=== PATIENT | female | born 1975 | race Caucasian/White ===

== ENCOUNTER 2017-01-31 00:15 | Outpatient (CLI) | payer MEDICAID ==
[2017-01-31 00:52] LABS: APPEARANCE,URINE SLIGHTLY-CLOUDY; BILIRUBIN,URINE NEGATIVE (NEGATIVE); GLUCOSE, URINE NEGATIVE (NEGATIVE); KETONES,URINE NEGATIVE (NEGATIVE); LEUKOCYTE ESTERASE,URINE SMALL (NEGATIVE); NITRITE,URINE NEGATIVE (NEGATIVE); PROTEIN,URINE NEGATIVE (NEGATIVE); URINE SPECIFIC GRAVITY 1.015; UROBILINOGEN,URINE NEGATIVE mg/dL (<2.0)
[2017-01-31 01:00] LABS: AMNISURE (ROM) NEGATIVE (NEGATIVE)
[2017-01-31 01:06] LABS: URINE BARBITURATES SCREEN NEGATIVE; URINE METHADONE SCREEN NEGATIVE; URINE OPIATES LOW NEGATIVE; URINE PHENCYCLIDINE SCREEN NEGATIVE
--- NOTE | 2017-01-31 04:46 | L&D Current Admission ---
Current Admit Datetime Report Generated by CPN: 01/31/2017 04:45 ADMISSION INFORMATION Chief Complaint: Contractions; Suspected Rupture of Membranes (01/31/2017 00:41:Marilu Jacobson RN)
--- NOTE | 2017-01-31 04:46 | L&D Flow Sheet ---
LD Flowsheet Datetime Report Generated by CPN: 01/31/2017 04:45 Datetime: 01/31/2017 02:52 Patient Care Comments: Discussed Dehydration with patient and spouse; both verbalized understanding (Marilu Field, RN) Datetime: 01/31/2017 02:48 Uterine Activity Monitor Mode: External; Palpation (Marilu Field, RN) Frequency (min): 1.5-3.5 (Marilu Field, RN) Quality: Mild (Marilu Field, RN) Resting Tone (Palpate): Relaxed (Marilu Field, RN) Contraction Comments: contraction frequency based on patient's aly on strip; unable to determine duration (Marilu Field, RN) Assessment A Monitor Mode: External US (Marilu Field, RN) FHR Baseline Rate : 125 (Marilu Field, RN) Variability: Moderate 6-25 bpm (Marilu Field, RN) Accelerations: 15X15 (Marilu Field, RN) Decelerations: None (Marilu Field, RN) Datetime: 01/31/2017 02:40 Vital Signs NBP Sys/Leida/Mean (mmHg): 117 (QS system process) : 69 (QS system process) : 89 (QS system process) Pulse: 51 (QS system process) LaborFlag: Antepartum (QS system process) Datetime: 01/31/2017 02:33 Monitor Interventions for UA: Reform Adjusted (Mirna Lattibeaudeir, RN) Contraction Comments: Pt given elvia button and advised to push it when she has a contraction. (Mirna Lattibeaudeir, RN) Datetime: 01/31/2017 02:30 Uterine Activity Monitor Mode: External; Palpation (Marilu Field, RN) Monitor Interventions for UA: Reform Adjusted (Marilu Field, RN) Quality: Mild (Marilu Field, RN) Resting Tone (Palpate): Relaxed (Marilu Field, RN) Contraction Comments: unable to determine contraction frequency (Marilu Field, RN) Assessment A Monitor Mode: External US (Marilu Field, RN) FHR Baseline Rate : 130 (Marilu Field, RN) Variability: Moderate 6-25 bpm (Marilu Field, RN) Accelerations: 15X15 (Marilu Field, RN) Decelerations: Late; Variable (Marilu Field, RN) Datetime: 01/31/2017 02:11 Vital Signs NBP Sys/Leida/Mean (mmHg): 131 (QS system process) : 62 (QS system process) : 88 (QS system process) Pulse: 51 (QS system process) LaborFlag: Antepartum (QS system process) Datetime: 01/31/2017 02:00 Uterine Activity Monitor Mode: External; Palpation (Marilu Field, RN) Frequency (min): 2.5-6 (Marilu Field, RN) Quality: Mild (Marilu Field, RN) Duration (sec): 50-100 (Marilu Field, RN) Resting Tone (Palpate): Relaxed (Marilu Field, RN) Assessment A Monitor Mode: External US ([facility], RN) FHR Baseline Rate : 125 ([facility], RN) Variability: Moderate 6-25 bpm ([facility], RN) Accelerations: 15X15 ([facility], RN) Decelerations: Late; Variable ([facility], RN) Datetime: 01/31/2017 01:51 Patient Care Patient Position/Activity: Left Extreme; Semi-Fowlers (Marilu Field, RN) Datetime: 01/31/2017 01:40 Vital Signs NBP Sys/Leida/Mean (mmHg): 124 (QS system process) : 71 (QS system process) : 93 (QS system process) Pulse: 57 (QS system process) LaborFlag: Antepartum (QS system process) Datetime: 01/31/2017 01:30 Uterine Activity Monitor Mode: External; Palpation ([facility], ) Frequency (min): 4.5-9 ([facility], ) Quality: Mild ([facility], RN) Duration (sec): 60-120 ([facility]) Resting Tone (Palpate): Relaxed ([facility], ) Assessment A Monitor Mode: External [facility] F[facility] Baseline Rate : 130 ([facility], ) Variability: Moderate 6-25 bpm [facility] Accelerations: 15X15 ([facility], RN) Decelerations: Late [facility] Patient Care Patient Position/Activity: Left Tilt; Semi-Fowlers (Marilu Field, RN) Datetime: 01/31/2017 01:10 Vital Signs NBP Sys/Leida/Mean (mmHg): 100 (QS system process) : 66 (QS system process) : 79 (QS system process) Pulse: 68 (QS system process) LaborFlag: Antepartum (QS system process) Datetime: 01/31/2017 01:07 Communication Communication: RN Reviewed Strip; Provider Orders Received; Call/Page Placed to Provider (Marilu Jacobson, RN) Communication Comments: Informed Dr. Reyes of patient's complaint, history, urine and amnisure results and vag exam; orders received to discharge home after being here for an hour. (Marilu Jacobson, RN) Datetime: 01/31/2017 01:00 Uterine Activity Monitor Mode: External; Palpation (Marilu Field, RN) Frequency (min): 4.5-7 (Marilu Field, RN) Quality: Mild (Marilu Field, RN) Duration (sec): 90-120 (Marilu Field, RN) Resting Tone (Palpate): Relaxed (Marilu Field, RN) Assessment A Monitor Mode: External US ([facility], RN) FHR Baseline Rate : 120 ([facility], RN) Variability: Moderate 6-25 bpm (Marilu Field, RN) Accelerations: 15X15 ([facility], RN) Decelerations: None (Marilu Field, RN) Datetime: 01/31/2017 00:47 Vaginal Exam Dilatation (cm): 1.0 (Marilu , ) Effacement (%): 20 ([facility], ) Station: -2 ([facility]) Exam by: BeanTANNA Jacobson ([facility]) Datetime: 01/31/2017 00:41 Frequency (min): Irregular (Marilu Jacobson, ) Pain Pain Scale: 2 ([facility], ) Pain Presence: Intermittent ([facility], ) Pain Type: Cramping; Contraction ([facility], RN) Pain Location: Abdomen; Back (Marilu Jacobson, RN) Pain Goal: 0 (Marilu Jacobson, RN) Pain Relief Measures: Comfort Measures (Marilu Jacobson, RN) Pain Coping: Talking Through Contractions; Breathing Through Contractions (Marilu Jacobson, RN) Vaginal Bleeding: Normal Show (Marilu Jacobson, RN) Maternal Assessment Level of Consciousness: Fully Conscious (Marilu Field, RN) DTR's/Clonus: DTRs 2+; No Clonus (Marilu Field, RN) Headache: Denies (Marilu Field, RN) Breath Sounds, Left: Clear and Equal (Marilu Field, RN) Breath Sounds, Right: Clear and Equal (Marilu Field, RN) Nausea/Vomiting: Denies (Marilu Field, RN) RUQ Epigastric Pain: Denies (Marilu Field, RN) Teaching Instructional Method: Verbal; Patient Instructed; Family/Support Person Instructed; Verbalized Understanding (Marilu Jacobson RN) Plan of Care: Plan of Care Discussed (Marilu Jacobson RN) Unit Routine: [place] to Room; Call Alvarez; Bed; Visiting Policy; Waiting Areas; Infant Security; Phone/Cell Phone Use; Unit Personnel; Handwashing; Monitoring; Safety/Fall Risk Prevention; Bathroom Privileges (Marilu Jacobson RN) LaborFlag: Antepartum (QS system process) Datetime: 01/31/2017 00:39 Vital Signs NBP Sys/Leida/Mean (mmHg): 104 (QS system process) : 67 (QS system process) : 81 (QS system process) Pulse: 71 (QS system process) LaborFlag: Antepartum (QS system process) Datetime: 01/31/2017 00:37 Patient Care Patient Position/Activity: Right Tilt; Couch (Jennifer Field, RN)
--- NOTE | 2017-01-31 04:46 | L&D Admission Assessment ---
LD ADM ASMT Datetime Report Generated by CPN: 01/31/2017 04:45 PATIENT ASSESSMENT Assessment Type: Triage (01/31/2017 00:41:Marilu Field, RN) WEIGHT Weight (lb): 251 (01/31/2017 01:02:QS system process) Weight (kg): 114.1 (01/31/2017 01:02:QS system process) BMI: 39.3 (01/31/2017 01:02:QS system process) PAIN Pain Scale: 2 (01/31/2017 00:41:Marilu Field, RN) Pain Presence: Intermittent (01/31/2017 00:41:Marilu Field, RN) Pain Type: Cramping; Contraction (01/31/2017 00:41:Marilu Field, RN) Pain Location: Abdomen; Back (01/31/2017 00:41:Marilu Field, RN) Pain Goal: 0 (01/31/2017 00:41:Marilu Field, RN) Pain Related to Contraction: Yes (01/31/2017 00:41:Marilu Field, RN) CONTRACTIONS Frequency (min): 1.5-3.5 (01/31/2017 02:48:Marilu Field, RN) Frequency (min): 2.5-6 (01/31/2017 02:00:Marilu Field, RN) Frequency (min): 4.5-9 (01/31/2017 01:30:Marilu Field, RN) Frequency (min): 4.5-7 (01/31/2017 01:00:Marilu Field, RN) Frequency (min): Irregular (01/31/2017 00:41:Marilu Jacobson RN) Duration (sec): 50-100 (01/31/2017 02:00:Marilu Jacobson RN) Duration (sec): 60-120 (01/31/2017 01:30:Marilu Jacobson RN) Duration (sec): 90-120 (01/31/2017 01:00:Marilu Jacobson RN) Quality: Mild (01/31/2017 02:48:Marilu Jacobson RN) Quality: Mild (01/31/2017 02:30:Marilu Jacobson RN) Quality: Mild (01/31/2017 02:00:Marilu Jacobson RN) Quality: Mild (01/31/2017 01:30:Marilu Jacobson RN) Quality: Mild (01/31/2017 01:00:Marilu Jacobson RN) Resting Tone Anna: Relaxed (01/31/2017 02:48:Marilu aJcobson RN) Resting Tone Anna: Relaxed (01/31/2017 02:30:Marilu Jacobson RN) Resting Tone Anna: Relaxed (01/31/2017 02:00:Marilu Jacobson RN) Resting Tone Anna: Relaxed (01/31/2017 01:30:Marilu Jacobson RN) Resting Tone Anna: Relaxed (01/31/2017 01:00:Marilu Jacobson RN) Contraction Comments: contraction frequency based on patient's aly on strip; unable to determine duration (01/31/2017 02:48:Marilu Jacobson RN) Contraction Comments: Pt given elvia button and advised to push it when she has a contraction. (01/31/2017 02:33:Mirna Whitt RN) Contraction Comments: unable to determine contraction frequency (01/31/2017 02:30:Marilu Jacobson RN) VAGINAL EXAM Dilatation (cm): 1.0 (01/31/2017 00:47:Marilu Jacobson, RN) Effacement (%): 20 (01/31/2017 00:47:Marilu Jacobson, RN) Station: -2 (01/31/2017 00:47:Marilu Jacobson, RN) NEURO Level of Consciousness: Fully Conscious (01/31/2017 00:41:Marilu TANNA Jacobson) DTR's/Clonus: DTRs 2+; No Clonus (01/31/2017 00:41:Marilu Jacobson RN) Headache: Denies [facility]31[facility]2017 [facility] Dizziness: No (01/31/2017 00:41:Marilu Field RN) Blurred Vision: No ([facility]/31/2017 00:41[facility]) Extremity Numbness/Tingling : None (01/31/2017 00:41:[facility] RN) Extremity Movement: Full Range of Motion (01/31/2017 00:41:[facility], RN) CARDIOVASCULAR Heart Rhythm: Regular (01/31/2017 00:41:Marilu Jacobson RN) Nailbeds: [place] (01/31/2017 00:41:Marilu Jacobson RN) Capillary Refill: Less than 3 Seconds (01/31/2017 00:41:Marilu Jacobson RN) Lower Extremities Edema: Bilateral Lower Extremities (01/31/2017 00:41:Marilu Jacobson RN) Lower Extremities Edema Degree: Pitting (01/31/2017 00:41:Marilu Jacobson RN) Upper Extremities Edema: None (01/31/2017 00:41:Marilu Jacobson RN) Upper Extremities Edema Degree: None (01/31/2017 00:41:Marilu Jacobson RN) Facial Edema: None (01/31/2017 00:41:Marilu Jacobson RN) Matilde's Sign Left Leg: Negative (01/31/2017 00:41:Marilu Jacobson RN) Matilde's Sign Right Leg: Negative (01/31/2017 00:41:Marilu Jacobson RN) DVT RISK ASSESSMENT DVT Risk Age: Age less than 41 years (01/31/2017 00:41:Marilu Jacobson RN) DVT Risk BMI: BMI 31 to 40 (01/31/2017 00:41:Marilu Jacobson RN) DVT Risk Surgery: History of Prior Major Surgery (01/31/2017 00:41:Marilu Jacobson RN) DVT Risk Other: Women Only- or (<1 month) (01/31/2017 00:41:Marilu Jacobson RN) DVT Risk Total: 3 (01/31/2017 00:41:QS system process) DVT Risk Text: High Risk (20-40%)- Consider stockings, compresssion device, pharmacological therapy per hospital policy (01/31/2017 00:41:QS system process) RESPIRATORY Respiratory Effort: Unlabored; Regular Rhythm; Equal Expansion (01/31/2017 00:41:Marilu Jacobson RN) Breath Sounds, Left: Clear and Equal (01/31/2017 00:41:Marilu Jacobson RN) Breath Sounds, Right: Clear and Equal (01/31/2017 00:41:Marilu Jacobson RN) Cough Productivity: Nonproductive (01/31/2017 00:41:Marilu Jacobson RN) GASTROINTESTINAL Nausea/Vomiting: Denies (01/31/2017 00:41:Marilu Jacobson RN) Bowel Sounds: Normoactive (01/31/2017 00:41:Marilu Jacobson RN) RUQ Epigastric Pain: Denies (01/31/2017 00:41:Marilu Jacobson RN) Bowel Patterns: Loose Stool (01/31/2017 00:41:Marilu Jacobson RN) Hemorrhoids: None (01/31/2017 00:41:Marilu Jacobson RN) Diet Type: Regular diet (01/31/2017 00:41:Marilu Jacobson RN) Last Meal: 01/30/2017 18:00 (01/31/2017 00:41:Marilu Jacobson RN) GENITOURINARY Bladder: Nondistended (01/31/2017 00:41:Marilu Jacobson RN) Frequency of Urination: No (01/31/2017 00:41:Marilu Jacobson RN) Urination Burning: No (01/31/2017 00:41:Marilu Jacobson RN) CVA Tenderness: No (01/31/2017 00:41:Marilu Jacobson RN) INTEGUMENTARY Skin Color: Normal for Race (01/31/2017 00:41:Marilu Jacobson RN) Skin Temperature: Warm (01/31/2017 00:41:Marilu Jacobson RN) Skin Moisture: Dry (01/31/2017 00:41:Marilu Jacobson RN) INOCENTE SKIN ASSESSMENT Inocente Scale Sensory Perception: No Impairment- Responds to verbal commands. Has no sensory deficit which would limit ability to feel or voice pain or discomfort (01/31/2017 00:41:Marilu Jacobson RN) Inocente Scale Moisture: Rarely Moist- Skin is usually dry. Linen only requires changing at routine intervals (01/31/2017 00:41:Marilu Jacobson RN) Inocente Scale Activity: Walks Frequently- Walks outside the room at least twice a day and inside room at least every 2 hours during the day. (01/31/2017 00:41:Marilu Jacobson RN) Inocente Scale Mobility: No Limitations- Makes major and frequent changes in position without assistance (01/31/2017 00:41:Marilu Jacobson RN) Inocente Scale Nutrition: Excellent- Eats most of every meal. Never refuses a meal. Usually eats a total of 4 or more servings of meat and dairy products. Occasionally eats between meals. Does not require supplementation (01/31/2017 00:41:Marilu Jacobson RN) Inocente Scale Friction and Shear: No Apparent Problem- Moves in bed and in chair independently and has sufficient muscle strength to lift up completely during move. Maintains good position in bed or chair at all times (01/31/2017 00:41:Marilu Jacobson RN) Inocente Scale Total: 23 (01/31/2017 00:41:QS system process) Inocente Scale Risk: No Risk of Pressure Ulcer Noted at this Time (01/31/2017 00:41:QS system process) SUPPORT Family Support: Significant Other supportive, at bedside frequently (01/31/2017 00:41:Marilu Jacobson, TANNA) Emotional State: Anxious (01/31/2017 00:41:Marilu Jacobson, TANNA) SAFETY Call [place] Within Reach: Yes (01/31/2017 00:41:Marilu Jacobson RN) Side Rails Up: Yes (01/31/2017 00:41:Marilu Jacobson RN) Bed Wheels Locked: Yes (01/31/2017 00:41:Marilu Jacobson RN) Arm Bands Present: Yes (01/31/2017 00:41:Marilu Jacobson RN) Isolation: [place] (01/31/2017 00:41:Marilu Jacobson RN) FALL SCREEN Fall Risk History of Falling: (0) No (01/31/2017 00:41:Marilu Jacobson RN) Fall Risk Secondary Diagnosis: (0) No (01/31/2017 00:41:Marilu Jacobson RN) Fall Risk Ambulatory Aid: (0) None/Bedrest/Wheelchair/Nurse Assist (01/31/2017 00:41:Marilu Jacobson RN) Fall Risk IV Therapy: (0) No (01/31/2017 00:41:Marilu Jacobson RN) Fall Risk Gait: (0) Normal/Bedrest/Immobile (01/31/2017 00:41:Marilu Jacobson RN) Fall Risk Mental Status: (0) Oriented to Own Ability (01/31/2017 00:41:Marilu Jacobson RN) Fall Risk Score: 0 (01/31/2017 00:41:QS system process) Fall Risk Score Definition: No Risk: No action required (01/31/2017 00:41:QS system process) RECENT TRAVEL/INFECTIOUS DISEASE Recent Exp Communicable Disease: No (01/31/2017 00:41:Marilu Jacobson RN) Cough or Fever: Yes (01/31/2017 00:41:Marilu Jacobson RN) Foreign Travel Past 10 Days: No (01/31/2017 00:41:Marilu Jacobson RN) Open Wounds or Sores: No (01/31/2017 00:41:Marilu Jacobson RN) Prior Antibiotic Resistance Tx: No (01/31/2017 00:41:Marilu Jacobson RN) Cultures Obtained: Not Applicable (01/31/2017 00:41:Marilu Jacobson RN) Isolation Initiated: No (01/31/2017 00:41:Marilu Jacobson RN) Pt/Family Education: Handwashing Hygiene (01/31/2017 00:41:Marilu Jacobson RN) BABY A FHR Baseline Rate (bpm) Baby A: 125 (01/31/2017 02:48:Marilu Jacobson RN) FHR Baseline Rate (bpm) Baby A: 130 (01/31/2017 02:30:Marilu Jacobson RN) FHR Baseline Rate (bpm) Baby A: 125 (01/31/2017 02:00:Marilu Jacobson RN) FHR Baseline Rate (bpm) Baby A: 130 (01/31/2017 01:30:Marilu Jacobson RN) FHR Baseline Rate (bpm) Baby A: 120 (01/31/2017 01:00:Marilu Jacobson RN) Variability Baby A: Moderate 6-25 bpm (01/31/2017 02:48:Marilu Jacobson RN) Variability Baby A: Moderate 6-25 bpm (01/31/2017 02:30:Marilu Jacobson RN) Variability Baby A: Moderate 6-25 bpm (01/31/2017 02:00:Marilu Jacobson RN) Variability Baby A: Moderate 6-25 bpm (01/31/2017 01:30:Marilu Jacobson RN) Variability Baby A: Moderate 6-25 bpm (01/31/2017 01:00:Marilu Jacobson RN) Accelerations Baby A: 15X15 (01/31/2017 02:48:Marilu Jacobson RN) Accelerations Baby A: 15X15 (01/31/2017 02:30:Marilu Jacobson RN) Accelerations Baby A: 15X15 (01/31/2017 02:00:Marilu Jacobson RN) Accelerations Baby A: 15X15 (01/31/2017 01:30:Marilu Jacobson RN) Accelerations Baby A: 15X15 (01/31/2017 01:00:Marilu Jacobson RN) Decelerations Baby A: None (01/31/2017 02:48:Marilu Jacobson RN) Decelerations Baby A: Late; Variable (01/31/2017 02:30:Marilu Jacobson RN) Decelerations Baby A: Late; Variable (01/31/2017 02:00:Marilu Jacobson RN) Decelerations Baby A: Late (01/31/2017 01:30:Marilu Jacobson RN) Decelerations Baby A: None (01/31/2017 01:00:Marilu Jacobson RN)
--- NOTE | 2017-01-31 04:46 | Antepartum Discharge Summary ---
Antepartum DC Datetime Report Generated by CPN: 01/31/2017 04:45 DIET/ACTIVITY/RESTRICTIONS Diet: Regular (01/31/2017 03:07:Marilu , RN) Activity: Normal Activity (01/31/2017 03:07:Marilu , RN) TEACHING/INSTRUCTIONS/REFERRALS Instructions Given To: Patient and spouse (01/31/2017 03:07:Marilu , RN) Instructions Understood: Patient Verbalized Understanding; Support Person Verbalized Understanding (01/31/2017 03:07:Marilu Jacobson RN) Referrals: None (01/31/2017 03:07:Marilu Jacobson RN) Educational Materials- Other: Dehydration (01/31/2017 03:07:Marilu Jacobson RN) DISCHARGE INFORMATION Discharged AMA: No (01/31/2017 03:07:Marilu Jacobson RN) Discharge Date/Time: 01/31/2017 03:04 (01/31/2017 03:07:Marilu Jacobson RN) Discharged To: Home (01/31/2017 03:07:Marilu Jacobson RN) Discharge Provider Name: Dr. Reyes (01/31/2017 03:07:Marilu Jacobson RN) Accompanied By: Spouse (01/31/2017 03:07:Marilu Jacobson RN) Discharge Method: Ambulatory (01/31/2017 03:07:Marilu Jacobson RN) Condition: Stable (01/31/2017 03:07:Marilu Jacobson RN) FOLLOW UP INFORMATION Follow Up With: [facility] (01/31/2017 03:07:Marilu Jacobson RN) Follow Up On: As Scheduled (01/31/2017 03:07:Marilu Jacobson RN) Follow Up Phone Number: [facility] - (01/31/2017 03:07:Marilu Jacobson RN) Comments: Discussed dehydration and signs and symptoms of when to return to office or hospital with patient and spouse. Both, patient and spouse, verbalized understanding. Patient discharged home due to false labor via ambulation in stable condition. (01/31/2017 03:07:Marilu Jacobson RN) GENERAL INSTR-CALL PROVIDER IF: Contractions: Contractions or cramps become more frequent than 8 in one hour or 4 in 20 minutes; Regular painful contractions every 5 minutes or less for one hour. Time your contractions from the beginning of one to the beginning of the next (01/31/2017 03:07:Marilu Jacobson RN) Pressure: Pressure in your vagina or lower abdomen that may feel like the baby is pushing down (01/31/2017 03:07:Marilu Jacobson RN) Period Like Cramps: Period-like cramps or low dull backache that may come and go (01/31/2017 03:07:Marilu Jacobson RN) Cramps/Diarrhea: Abdominal cramps that may be accompanied by diarrhea (01/31/2017 03:07:Marilu Jacobson RN) Gush of Fluid/Blood: Gush of fluid or blood from your vagina (it is normal to have spotting after vaginal exam or intercourse) (01/31/2017 03:07:Marilu Jacobson RN) Vaginal Discharge: Change in the type or amount of vaginal discharge (01/31/2017 03:07:Marilu Jacobson RN) Decreased Movement: Your baby is not moving as much as usual- 4 movements in 1 hour after drinking and resting on side (01/31/2017 03:07:Marilu Jacobson RN) Temperature: Temperature greater than 100.0(F) orally (01/31/2017 03:07:Marilu Jacobson RN) Hypertension Signs/Symptoms: Severe headache which is not relieved 30 minutes after taking Tylenol(Acetaminophen); Blurry vision or spots before your eyes; Severe heartburn or pain on the upper right side of your abdomen that is not relieved by an antacid; Increased swelling in your face, hands or feet (01/31/2017 03:07:Marilu Jacobson RN) Urinary Output: Decreased urinary output or dark colored urine (01/31/2017 03:07:Marilu Jacobson RN)
--- NOTE | 2017-01-31 04:46 | L&D General Admission ---
General Admit Datetime Report Generated by CPN: 01/31/2017 04:45 CARE Height (in): 67 (01/31/2017 01:02:QS system process) DEMOGRAPHICS Home (01/31/2017 00:15:QS system process) Next of Kin (01/31/2017 00:15:QS system process)
--- NOTE | 2017-01-31 04:46 | L&D Discharge Summary ---
OB Discharge Summary Datetime Report Generated by CPN: 01/31/2017 04:45 DISCHARGE DIAGNOSIS Diagnosis/Symptoms: False Labor Diagnoses/Symptoms Other: Left lower quadrant pain/left back pain that has resolved. Treatment/Procedures Other: FHTs appropriate for GA; toco monitoring Gestation: 38.5 Number of Babies in Womb: 1 Parity: 4 DIET/ACTIVITY/RESTRICTIONS Diet: Regular Activity: Normal Activity TEACHING/INSTRUCTIONS/REFERRALS Instructions Given To: Patient and spouse Instructions Understood: Patient Verbalized Understanding; Support Person Verbalized Understanding Referrals: None Educational Materials- Other: Dehydration DISCHARGE INFORMATION Discharged AMA: No Discharge Date/Time: 01/31/2017 03:04 Discharged To: Home Discharge Provider Name: DrShasta Reyes Accompanied By: Spouse Discharge Method: Ambulatory Condition: Stable FOLLOW UP INFORMATION Follow Up With: [facility] Follow Up On: As Scheduled Follow Up Phone Number: [facility] - Comments: Discussed dehydration and signs and symptoms of when to return to office or hospital with patient and spouse. Both, patient and spouse, verbalized understanding. Patient discharged home due to false labor via ambulation in stable condition. GENERAL INSTR-CALL PROVIDER IF: Contractions: Contractions or cramps become more frequent than 8 in one hour or 4 in 20 minutes; Regular painful contractions every 5 minutes or less for one hour. Time your contractions from the beginning of one to the beginning of the next Pressure: Pressure in your vagina or lower abdomen that may feel like the baby is pushing down Period Like Cramps: Period-like cramps or low dull backache that may come and go Cramps/Diarrhea: Abdominal cramps that may be accompanied by diarrhea Gush of Fluid/Blood: Gush of fluid or blood from your vagina (it is normal to have spotting after vaginal exam or intercourse) Vaginal Discharge: Change in the type or amount of vaginal discharge Decreased Movement: Your baby is not moving as much as usual- 4 movements in 1 hour after drinking and resting on side Temperature: Temperature greater than 100.0(F) orally
== END 2017-01-31 03:04 | disposition home or self-care (01) ==
LOC: LC 00:15
PROVIDERS: ATTEND Obstetrics & Gynecology
PROC: 4A1HXCZ Monitoring of Products of Conception, Cardiac Rate, External Approach (ICD-10-PCS; principal; 2017-01-31)
DX: O47.1 False labor at or after 37 completed weeks of gestation (principal); O09.523 Supervision of elderly multigravida, third trimester; Z3A.38 38 weeks gestation of pregnancy
CPT/HCPCS: 59025; 80307; 81005; 84112

== ENCOUNTER 2017-02-02 08:25 | Inpatient (IN) | payer MEDICAID ==
[2017-02-02] MEDS ORDERED: RINGERS SOLUTION,LACTATED 300 ML IV ONE (08:41)
[2017-02-02] MEDS ORDERED: RINGERS SOLUTION,LACTATED 1,000 ML IV PRN (08:41)
[2017-02-02] MEDS ORDERED: OXYTOCIN/NORMAL SALINE 1,000 ML IV PRN ×3 (08:41→16:35)
--- NOTE | 2017-02-02 08:46 | Non Stress Test Report ---
Non Stress Test Datetime Report Generated by CPN: 02/02/2017 08:46 DEMOGRAPHIC EGA NST: 38.6 INDICATION Indication for Study: Ordered by Provider Indication for Study (NST) Other: LC MONITORING Monitor Explained: Monitor Explained; Test Explained; Patient Verbalized Understanding Time on Monitor: 01/31/2017 00:37 Time off Monitor: 01/31/2017 02:48 NST Duration: 131 NST INTERVENTIONS NST Interventions: PO Hydration; Reposition Patient Physician Notified NST: Dr. Reyes BABY A: [id number] BABY A Movement : Present Contraction Frequency : 2.5-9 FHR Baseline : 125 Accelerations : 15X15 Decelerations : Late; Variable Variability : Moderate 6-25bpm NST Review: Meets Criteria for Reactive NST NST Review and Verified By : TANNA Walton Results: Reactive NST COMMENTS NST Comments: Pt was repositioned and reactive strip was obtained prior to patient's discharge from unit. NST REPORT Report Trigger: Send Report
[2017-02-02 09:12] LABS: APPEARANCE,URINE SLIGHTLY-CLOUDY; BILIRUBIN,URINE NEGATIVE (NEGATIVE); GLUCOSE, URINE NEGATIVE (NEGATIVE); KETONES,URINE NEGATIVE (NEGATIVE); LEUKOCYTE ESTERASE,URINE MODERATE (NEGATIVE); NITRITE,URINE NEGATIVE (NEGATIVE); PROTEIN,URINE NEGATIVE (NEGATIVE); URINE SPECIFIC GRAVITY 1.011; UROBILINOGEN,URINE NEGATIVE mg/dL (<2.0)
[2017-02-02] MEDS ORDERED: OXYTOCIN/NORMAL SALINE 20 UNIT/1,000 ML RTUINJ ONE (09:17)
[2017-02-02 09:25] LABS: ABSOLUTE LYMPHOCYTES (AUTO) 1.7 10^3/uL (0.5-4.7); ABSOLUTE MONOCYTES (AUTO) 0.4 10^3/uL (0.1-1.4); ABSOLUTE NEUT (AUTO) 4.1 10^3/uL (1.7-8.2); BASOPHILS % (AUTO) 0.4 % (0-2); EOSINOPHILS % (AUTO) 0.7 % (0-6); HEMATOCRIT 35.9 % (36.0-47.0); HEMOGLOBIN 12.4 g/dL (12.0-15.5); HGB HCT DIFFERENCE 1.3; LYMPHOCYTES % (AUTO) 27.5 % (13-45); MEAN CORPUSCULAR HEMOGLOBIN 29.1 pg (27.0-33.4); MEAN CORPUSCULAR HGB CONC 34.4 g/dL (32.0-36.0); MEAN CORPUSCULAR VOLUME 84 fl (80-97); MONOCYTES % (AUTO) 5.7 % (3-13); RED BLOOD COUNT 4.26 10^6/uL (3.72-5.28); SEGMENTED NEUTROPHILS % (AUTO) 65.7 % (42-78); WHITE BLOOD COUNT 6.3 10^3/uL (4.0-10.5)
[2017-02-02 09:36] LABS: URINE BARBITURATES SCREEN NEGATIVE; URINE METHADONE SCREEN NEGATIVE; URINE OPIATES LOW NEGATIVE; URINE PHENCYCLIDINE SCREEN NEGATIVE
[2017-02-02] MEDS ORDERED: FENTANYL/BUPIVACAINE/NS/PF 100 ML EPI PRN (11:11)
[2017-02-02] MEDS ORDERED: BENZOIN/ALOE VERA/STORAX/TOLU TINCTURE 60 ML TP PRN (11:11)
[2017-02-02] MEDS ORDERED: BUPIVACAINE HCL 0.25 % INJ/PF (2.5 MG/1 ML) 30 ML VIAL INFIL ONE (11:11)
--- NOTE | 2017-02-02 14:17 | L&D Progress Notes ---
PROGRESS NOTES Datetime Report Generated by CPN: 02/02/2017 14:17 PROGRESS NOTE Impression: Normal Progression of Labor; Reactive Non Stress Test; Rupture of Membranes Procedures: Artificial ROM; Sterile Vag Exam Plan: Continue Present Management; Induction Vital Signs : Reviewed; Within Normal Limits Comment: pt coping well with ctx. denies need for pain medication at this time. AROM, with FSE, clear/blood tinged fluid Continue pitocin per protocol. Anticipate VAGINAL EXAM Dilatation: 3 Dilatation: 1 Effacement: 70 Effacement: 50 Station: -1 Station: -3 Contractions: 2 Contractions: irregular MEMBRANES Membranes: Intact Amniotic Fluid Color: Bloody FETUS A FHR - Baseline: 125 Monitoring: Internal Scalp Electrode Variability: Moderate 6-25bpm Accelerations: 15X15 Decelerations: Early; Variable FHR Category: Category II Estimated Weight (gm): 3600 Presentation: Vertex SIGNATURE SIGNATURE: [id number] SIGNATURE: [id number] Assignment: Sneha Reyes MD Signature: with User ID: [email or web address] : with User ID: [email or web address]
[2017-02-02] MEDS ORDERED: MISOPROSTOL 0.2 MG TABLET ONE ×2 (15:29→20:14)
[2017-02-02] MEDS ORDERED: DIBUCAINE 1% OINTMENT 28 GM TP PRN (16:35)
[2017-02-02] MEDS ORDERED: ZOLPIDEM TARTRATE 5 MG TABLET PO PRN (16:35)
[2017-02-02] MEDS ORDERED: MEASLES,MUMPS&RUBELLA VACC/PF 0.5 ML VIAL SUBCUT PRN (16:35)
[2017-02-02] MEDS ORDERED: BENZOCAINE/MENTHOL AEROSOL SPRAY 56 ML TOP PRN (16:35)
[2017-02-02] MEDS ORDERED: DIPH/PERTUSS(ACELL)/TETANUS VAC/PF 0.5 ML SYR (>=10YO) IM PRN (16:35)
[2017-02-02] MEDS ORDERED: ACETAMINOPHEN WITH CODEINE #3 TABLET PO PRN ×2 (16:35)
[2017-02-02] MEDS ORDERED: IBUPROFEN 800 MG TABLET ONE (17:30)
[2017-02-02] MEDS: IBUPROFEN 800 MG TABLET PO SCH (17:30)
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
[2017-02-02] MEDS ORDERED: BUPIVACAINE HCL/NS/PF 0 MG/0 ML RTUINJ EPI ONE (18:52)
[2017-02-02] MEDS: DOCUSATE SODIUM 100 MG CAPSULE PO SCH (19:01)
[2017-02-02] MEDS: FERROUS SULFATE 325 MG TABLET PO SCH (19:01)
--- NOTE | 2017-02-02 19:01 | L&D Flow Sheet ---
LD Flowsheet Datetime Report Generated by CPN: 02/02/2017 19:00 Datetime: 02/02/2017 17:30 Respirations: 17 (Clari Shun, RN) Pain Scale: 3 (Clari Shun, RN) Pain Presence: Intermittent (Clari Shun, RN) Pain Type: Cramping (Clari Shun, RN) Pain Location: Abdomen (Clari Shun, RN) Pain Relief Measures: Pain Medication Given (Clari Shun, RN) LaborFlag: Labor (QS system process) Datetime: 02/02/2017 17:18 NBP Sys/Leida/Mean (mmHg): 128 (QS system process) : 77 (QS system process) : 97 (QS system process) Pulse: 55 (QS system process) LaborFlag: Labor (QS system process) Datetime: 02/02/2017 17:03 NBP Sys/[place]/Mean (mmHg): 128 (QS system process) : 79 (QS system process) : 100 (QS system process) Pulse: 58 (QS system process) LaborFlag: Labor (QS system process) Datetime: 02/02/2017 17:00 Respirations: 17 (Clari Shun, RN) Pain Scale: 0 (Clari Shun, RN) Pain Presence: None/Denies (Clari Shun, RN) Pain Type: N/A (Clari Shun, RN) LaborFlag: Labor (QS system process) Datetime: 02/02/2017 16:48 NBP Sys/[place]/Mean (mmHg): 133 (QS system process) : 65 (QS system process) : 93 (QS system process) Pulse: 51 (QS system process) LaborFlag: Labor (QS system process) Datetime: 02/02/2017 16:33 NBP Sys/[place]/Mean (mmHg): 134 (QS system process) : 59 (QS system process) : 94 (QS system process) Pulse: 62 (QS system process) LaborFlag: Labor (QS system process) Datetime: 02/02/2017 16:30 Respirations: 17 (Clari Shun, RN) Pain Scale: 0 (Clari Shun, RN) Pain Presence: None/Denies (Clari Shun, RN) Pain Type: N/A (Clari Shun, RN) LaborFlag: Labor (QS system process) Datetime: 02/02/2017 16:18 NBP Sys/[place]/Mean (mmHg): 128 (QS system process) : 77 (QS system process) : 97 (QS system process) Pulse: 60 (QS system process) LaborFlag: Labor (QS system process) Datetime: 02/02/2017 16:15 Respirations: 17 (Clari Shun, RN) Pain Scale: 0 (Clari Shun, RN) Pain Presence: None/Denies (Clari Shun, RN) Pain Type: N/A (Clari Shun, RN) LaborFlag: Labor (QS system process) Datetime: 02/02/2017 16:03 NBP Sys/[place]/Mean (mmHg): 130 (QS system process) : 77 (QS system process) : 99 (QS system process) Pulse: 62 (QS system process) LaborFlag: Labor (QS system process) Datetime: 02/02/2017 16:00 Respirations: 16 (Clari Shun, RN) Temperature (F): 98.0 (Clari Shun, RN) Temperature (C): 36.7 (QS system process) Pain Scale: 0 (Clari Shun, RN) Pain Presence: None/Denies (Clari Shun, RN) Pain Type: N/A (Clari Shun, RN) LaborFlag: Labor (QS system process) Datetime: 02/02/2017 15:48 NBP Sys/Le[place]/Mean (mmHg): 128 (QS system process) : 85 (QS system process) : 103 (QS system process) LaborFlag: Labor (QS system process) Datetime: 02/02/2017 15:45 Respirations: 17 (Clari Shun, RN) Pain Scale: 0 (Clari Shun, RN) Pain Presence: None/Denies (Clari Shun, RN) Pain Type: N/A (Clari Shun, RN) LaborFlag: Labor (QS system process) Datetime: 02/02/2017 15:34 NBP Sys/[place]/Mean (mmHg): 130 (QS system process) : 75 (QS system process) : 98 (QS system process) Pulse: 77 (QS system process) LaborFlag: Labor (QS system process) Datetime: 02/02/2017 15:27 Stage of : Labor (Clari Shun, RN) Respirations: 17 (Clari Shun, RN) Pain Scale: 0 (Clari Shun, RN) Pain Presence: None/Denies (Clari Shun, RN) Pain Type: N/A (Clari Shun, RN) LaborFlag: Labor (QS system process) Datetime: 02/02/2017 15:22 Dilatation (cm): 10.0 (Clari Shun, RN) Effacement (%): 100 (Clari Shun, RN) Station: 1 (Clari Shun, RN) Exam by: Isauro Contreras CN (Clari Shun, RN) Datetime: 02/02/2017 15:17 Pushing: Urge to Push; Involuntary Pushing (Clari Shun, RN) Pushing Position: Pushing with Contractions (Clari Shun, RN) Pushing Progress: Descent with Pushing (Clari Shun, RN) Datetime: 02/02/2017 15:16 Comments: RN and CNM remain at bedside while pushing with pt and assessing FHTs (Clari Shun, RN) Patient Position/Activity: Right Tilt (Clari Shun, RN) Communication Comments: HShasta Hong CNM at bedside (Clari Shun, RN) Datetime: 02/02/2017 15:15 Monitor Mode: External; Palpation (Clari Shun, RN) Frequency (min): 2-3 (Clari Shun, RN) Quality: Moderate to Strong (Clari Shun, RN) Duration (sec): 70-90 (Clari Shun, RN) Resting Tone (Palpate): Relaxed (Clari Shun, RN) Monitor Mode: Internal Scalp Electrode (Clari Shun, RN) FHR Baseline Rate : 135 (Clari Shun, RN) Variability: Minimal - Undetectable to <=5 bpm (Clari Shun, RN) Accelerations: None (Clari Shun, RN) Decelerations: Variable (Clari Shun, RN) Datetime: 02/02/2017 15:12 Dilatation (cm): 6.0 (Clari Shun, RN) Effacement (%): 90 (Clari Shun, RN) Station: 0 (Clari Shun, RN) Exam by: Isauro Contreras CNM (Clari Shun, RN) Communication Comments: Isauro Contreras CNM at bedside (Clari Shun, RN) Datetime: 02/02/2017 15:02 Patient Position/Activity: Tailors (Clari Shun, RN) Datetime: 02/02/2017 15:00 Monitor Mode: External (Clari Shun, RN) Frequency (min): 2 (Clari Shun, RN) Quality: Moderate (Clari Shun, RN) Duration (sec): 60-70 (Clari Shun, RN) Resting Tone (Palpate): Relaxed (Clari Shun, RN) Monitor Mode: Internal Scalp Electrode (Clari Shun, RN) FHR Baseline Rate : 120 (Clari Hsun, RN) Variability: Moderate 6-25 bpm (Clari Shun, RN) Accelerations: 15X15 (Clari Shun, RN) Decelerations: None (Clari Shun, RN) Datetime: 02/02/2017 14:52 I/O Interventions: Up to BR (Clari Shun, RN) Datetime: 02/02/2017 14:45 Monitor Mode: External (Clari Shun, RN) Frequency (min): 2-3 (Clari Shun, RN) Quality: Moderate (Clari Shun, RN) Duration (sec): 60-80 (Clari Shun, RN) Resting Tone (Palpate): Relaxed (Clari Shun, RN) Monitor Mode: External US (Clari Shun, RN) FHR Baseline Rate : 135 (Clari Shun, RN) Variability: Moderate 6-25 bpm (Clari Shun, RN) Accelerations: None (Clari Shun, RN) Decelerations: None (Clari Shun, RN) Datetime: 02/02/2017 14:30 Monitor Mode: External; Palpation (Clari Shun, RN) Frequency (min): 2 (Clari Shun, RN) Quality: Moderate (Clari Shun, RN) Duration (sec): 70-80 (Clari Shun, RN) Resting Tone (Palpate): Relaxed (Clari Shun, RN) Monitor Mode: Internal Scalp Electrode (Clari Shun, RN) FHR Baseline Rate : 135 (Clari Shun, RN) Variability: Moderate 6-25 bpm (Clari Shun, RN) Accelerations: None (Clari Shun, RN) Decelerations: Early (Clari Shun, RN) Datetime: 02/02/2017 14:24 Comments: FSE adjusted (Clari Shun, RN) Datetime: 02/02/2017 14:23 Patient Position/Activity: Hands-Knees (Clari Shun, RN) Datetime: 02/02/2017 14:20 NBP Sys/Leida/Mean (mmHg): 139 (QS system process) : 73 (QS system process) : 101 (QS system process) Pulse: 58 (QS system process) LaborFlag: Antepartum (QS system process) Datetime: 02/02/2017 14:15 Monitor Mode: External; Palpation (Clari Shun, RN) Frequency (min): 2-3 (Clari Shun, RN) Quality: Moderate (Clari Shun, RN) Duration (sec): 60-80 (Clari Shun, RN) Resting Tone (Palpate): Relaxed (Clari Shun, RN) Monitor Mode: External US; Internal Scalp Electrode (Clari Shun, RN) FHR Baseline Rate : 125 (Clari Shun, RN) Variability: Moderate 6-25 bpm (Clari Shun, RN) Accelerations: 10X10 (Clari Shun, RN) Decelerations: Variable (Clari Shun, RN) Datetime: 02/02/2017 14:09 Patient Position/Activity: Left Lateral (Clari Shun, RN) Datetime: 02/02/2017 14:06 Monitor Interventions for FHR: FSE Applied (Clari Shun, RN) Dilatation (cm): 3.0 (Clari Hoffmann, RN) Effacement (%): 70 (Clari Hoffmann, RN) Station: -1 (Clari Hoffmann, RN) Exam by: Isauro Contreras CNM (Clari Hoffmann, RN) Membrane Status: Ruptured (Clari Hoffmann, RN) Membranes Rupture Method: Artificial (Clari Hoffmann, RN) Amniotic Fluid Color: Clear (Clari Hoffmann, RN) Amniotic Fluid Amount: Moderate (Clari Hoffmann, RN) Amniotic Fluid Odor: Normal (Clari Hoffmann, RN) Vaginal Bleeding: Normal Show (Clari Hoffmann, RN) Cervix, Position: Posterior (Clari Hoffmann, RN) Datetime: 02/02/2017 14:02 Communication Comments: Isauro Contreras CNM at bedside (Clari Hoffmann, RN) Datetime: 02/02/2017 14:00 Monitor Mode: External (Clari Hoffmann, RN) Frequency (min): 1-2 (Calri Hoffmann, RN) Quality: Moderate (Clari Hoffmann, RN) Duration (sec): 60-80 (Clari Shun, RN) Resting Tone (Palpate): Relaxed (Clari Shun, RN) Monitor Mode: External US (Clari Shun, RN) FHR Baseline Rate : 135 (Clari Shun, RN) Variability: Moderate 6-25 bpm (Clari Shun, RN) Accelerations: None (Clari Shun, RN) Decelerations: None (Clari Shun, RN) Datetime: 02/02/2017 13:51 NBP Sys/Leida/Mean (mmHg): 122 (QS system process) : 76 (QS system process) : 94 (QS system process) Pulse: 58 (QS system process) LaborFlag: Antepartum (QS system process) Datetime: 02/02/2017 13:45 Monitor Mode: External (Clari Shun, RN) Frequency (min): 2 (Clari Shun, RN) Quality: Mild/Moderate (Clari Shun, RN) Duration (sec): 60-70 (Clari Shun, RN) Resting Tone (Palpate): Relaxed (Clari Shun, RN) Monitor Mode: External US (Clari Shun, RN) FHR Baseline Rate : 135 (Clari Shun, RN) Variability: Moderate 6-25 bpm (Clari Shun, RN) Accelerations: 15X15 (Clari Shun, RN) Decelerations: Late (Clari Shun, RN) Datetime: 02/02/2017 13:35 Patient Position/Activity: Right Lateral (Clari Shun, RN) Datetime: 02/02/2017 13:30 Monitor Mode: External (Clari Shun, RN) Frequency (min): 1-2 (Clari Shun, RN) Quality: Mild/Moderate (Clari Shun, RN) Duration (sec): 40-100 (Clari Shun, RN) Resting Tone (Palpate): Relaxed (Clari Shun, RN) Monitor Mode: External US (Clari Shun, RN) FHR Baseline Rate : 125 (Clari Shun, RN) Variability: Moderate 6-25 bpm (Clari Shun, RN) Accelerations: 15X15 (Clari Shun, RN) Decelerations: None (Clari Shun, RN) Datetime: 02/02/2017 13:21 Pitocin (milliunit): Pitocin Increased to (milliunits) @ 14 (Clari Shun, RN) Datetime: 02/02/2017 13:20 NBP Sys/Leida/Mean (mmHg): 118 (QS system process) : 71 (QS system process) : 90 (QS system process) Pulse: 59 (QS system process) LaborFlag: Antepartum (QS system process) Datetime: 02/02/2017 13:15 Monitor Mode: External (Clari Shun, RN) Frequency (min): 2-3 (Clari Shun, RN) Quality: Mild/Moderate (Clari Shun, RN) Duration (sec): 60-90 (Clari Shun, RN) Resting Tone (Palpate): Relaxed (Clari Shun, RN) Monitor Mode: External US (Clari Shun, RN) FHR Baseline Rate : 125 (Clari Shun, RN) Variability: Moderate 6-25 bpm (Clari Shun, RN) Accelerations: None (Clari Shun, RN) Decelerations: None (Clari Shun, RN) Datetime: 02/02/2017 13:12 Patient Position/Activity: Left Tilt (Clari Shun, RN) Datetime: 02/02/2017 13:10 I/O Interventions: Up to BR (Clari Shun, RN) Datetime: 02/02/2017 13:00 Monitor Mode: External (Clari Shun, RN) Frequency (min): 2-3 (Clari Shun, RN) Quality: Mild/Moderate (Clari Shun, RN) Duration (sec): 60-80 (Clari Shun, RN) Resting Tone (Palpate): Relaxed (Clari Shun, RN) Monitor Mode: External US (Clari Shun, RN) FHR Baseline Rate : 125 (Clari Shun, RN) Variability: Moderate 6-25 bpm (Clari Shun, RN) Accelerations: None (Clari Shun, RN) Decelerations: None (Clari Shun, RN) Datetime: 02/02/2017 12:51 Pitocin (milliunit): Pitocin Increased to (milliunits) @ 12 (Clari Shun, RN) Datetime: 02/02/2017 12:50 NBP Sys/Leida/Mean (mmHg): 125 (QS system process) : 76 (QS system process) : 95 (QS system process) Pulse: 53 (QS system process) LaborFlag: Antepartum (QS system process) Datetime: 02/02/2017 12:45 Monitor Mode: External (Clari Shun, RN) Frequency (min): 2 (Clari Shun, RN) Quality: Mild/Moderate (Clari Shun, RN) Duration (sec): 70-80 (Clari Shun, RN) Resting Tone (Palpate): Relaxed (Clari Shun, RN) Monitor Mode: External US (Clari Shun, RN) FHR Baseline Rate : 125 (Clari Shun, RN) Variability: Moderate 6-25 bpm (Clari Shun, RN) Accelerations: 15X15 (Clari Shun, RN) Decelerations: None (Clari Shun, RN) Pitocin (milliunit): Pitocin Remains (milliunits) @ (Annotations: 10) (Clari Shun, RN) Datetime: 02/02/2017 12:30 Monitor Mode: External (Clari Shun, RN) Frequency (min): 2-3 (Clari Shun, RN) Quality: Mild/Moderate (Clari Shun, RN) Duration (sec): 60-80 (Clari Shun, RN) Resting Tone (Palpate): Relaxed (Clari Shun, RN) Monitor Mode: External US (Clari Shun, RN) FHR Baseline Rate : 125 (Clari Shun, RN) Variability: Moderate 6-25 bpm (Clari Shun, RN) Accelerations: 15X15 (Clari Shun, RN) Decelerations: None (Clari Shun, RN) Pitocin (milliunit): Pitocin Remains (milliunits) @ (Annotations: 10) (Clari Shun, RN) Datetime: 02/02/2017 12:21 Pitocin (milliunit): Pitocin Increased to (milliunits) @ 10 (Clari Shun, RN) Datetime: 02/02/2017 12:20 NBP Sys/Leida/Mean (mmHg): 131 (QS system process) : 86 (QS system process) : 103 (QS system process) Pulse: 56 (QS system process) LaborFlag: Antepartum (QS system process) Datetime: 02/02/2017 12:15 Monitor Mode: External (Clari Shun, RN) Frequency (min): 2-3 (Clari Shun, RN) Quality: Mild/Moderate (Clari Shun, RN) Duration (sec): 60-70 (Clari Shun, RN) Resting Tone (Palpate): Relaxed (Clari Shun, RN) Monitor Mode: External US (Clari Shun, RN) FHR Baseline Rate : 125 (Clari Shun, RN) Variability: Moderate 6-25 bpm (Clari Shun, RN) Accelerations: None (Clari Shun, RN) Decelerations: None (Clari Shun, RN) Pitocin (milliunit): Pitocin Remains (milliunits) @ (Annotations: 8) (Clari Shun, RN) Datetime: 02/02/2017 12:00 Monitor Mode: External; Palpation (Clari Shun, RN) Frequency (min): 2-3 (Clari Shun, RN) Quality: Mild/Moderate (Clari Shun, RN) Duration (sec): 60-80 (Clari Shun, RN) Resting Tone (Palpate): Relaxed (Clari Shun, RN) Monitor Mode: External US (Clari Shun, RN) FHR Baseline Rate : 130 (Clari Shun, RN) Variability: Moderate 6-25 bpm (Clari Shun, RN) Accelerations: 15X15 (Clari Shun, RN) Decelerations: None (Clari Shun, RN) Pitocin (milliunit): Pitocin Remains (milliunits) @ (Annotations: 8) (Clari Shun, RN) Datetime: 02/02/2017 11:50 NBP Sys/Leida/Mean (mmHg): 115 (QS system process) : 80 (QS system process) : 94 (QS system process) Pulse: 62 (QS system process) LaborFlag: Antepartum (QS system process) Datetime: 02/02/2017 11:45 Monitor Mode: External (Clari Shun, RN) Frequency (min): 2-4 (Clari Shun, RN) Quality: Mild/Moderate (Clari Shun, RN) Duration (sec): 60-80 (Clari Shun, RN) Resting Tone (Palpate): Relaxed (Clari Hsun, RN) Monitor Mode: External US (Clari Shun, RN) FHR Baseline Rate : 135 (Clari Shun, RN) Variability: Moderate 6-25 bpm (Clari Shun, RN) Accelerations: None (Clari Shun, RN) Decelerations: None (Clari Shun, RN) Pitocin (milliunit): Pitocin Remains (milliunits) @ (Annotations: 8) (Clari Shun, RN) Datetime: 02/02/2017 11:30 Monitor Mode: External; Palpation (Clari Shun, RN) Frequency (min): 3-4 (Clari Shun, RN) Quality: Mild/Moderate (Clari Shun, RN) Duration (sec): 70-90 (Clari Shun, RN) Resting Tone (Palpate): Relaxed (Clari Shun, RN) Monitor Mode: External US (Clari Shun, RN) FHR Baseline Rate : 115 (Clari Shun, RN) Variability: Moderate 6-25 bpm (Clari Shun, RN) Accelerations: 15X15 (Clari Shun, RN) Decelerations: Early (Clari Shun, RN) Pitocin (milliunit): Pitocin Remains (milliunits) @ (Annotations: 8) (Clari Shun, RN) Datetime: 02/02/2017 11:25 Patient Position/Activity: Left Tilt (Clari Shun, RN) Datetime: 02/02/2017 11:23 I/O Interventions: Up to BR (Clari Shun, RN) Datetime: 02/02/2017 11:17 Pitocin (milliunit): Pitocin Increased to (milliunits) @ 8 (Clari Hoffmann RN) Medication Comments: Isauro Contreras CNM at bedside, order recieved to incrase pitocin to 8mu now (Clari Hoffmann RN) Datetime: 02/02/2017 11:16 Pitocin (milliunit): Pitocin Started (milliunits) @ (Annotations: 6) (Clari Hoffmann RN) Patient Care Comments: 20g inserted into right wrist, infusing without difficulty (Clari Hoffmann RN) Datetime: 02/02/2017 11:15 Monitor Mode: External; Palpation (Clari Hoffmann, TANNA) Frequency (min): 6-7 (Clari Hoffmann RN) Quality: Mild (Clari Hoffmann RN) Duration (sec): 60-80 (Clari Hoffmann, RN) Resting Tone (Palpate): Relaxed (Clari Hoffmann, RN) Monitor Mode: External US (Clari Hoffmann RN) FHR Baseline Rate : 125 (Clari Hoffmann RN) Variability: Moderate 6-25 bpm (Clari Shun, RN) Accelerations: 15X15 (Clari Shun, RN) Decelerations: None (Clari Shun, RN) Datetime: 02/02/2017 11:04 Pitocin (milliunit): Pitocin Discontinued (Annotations: due to pt infiltrated IV ) (Clari Hoffmann, RN) Patient Care Comments: IV infiltrated, removed without difficulty (Clari Shun, RN) Datetime: 02/02/2017 11:00 Frequency (min): 2-5 (Clari Shun, RN) Duration (sec): 60-90 (Clari Shun, RN) Resting Tone (Palpate): Relaxed (Clari Shun, RN) Monitor Mode: External US (Clari Shun, RN) FHR Baseline Rate : 125 (Clari Shun, RN) Variability: Moderate 6-25 bpm (Clari Shun, RN) Accelerations: 15X15 (Clari Shun, RN) Decelerations: Early (Clari Shun, RN) Pitocin (milliunit): Pitocin Remains (milliunits) @ (Annotations: 6) (Clari Shun, RN) Datetime: 02/02/2017 10:50 NBP Sys/Leida/Mean (mmHg): 105 (QS system process) : 73 (QS system process) : 85 (QS system process) Pulse: 58 (QS system process) LaborFlag: Antepartum (QS system process) Datetime: 02/02/2017 10:45 Monitor Mode: External (Clari Shun, RN) Frequency (min): 3-5 (Clari Shun, RN) Quality: Mild (Clari Shun, RN) Duration (sec): 40-70 (Clari Shun, RN) Resting Tone (Palpate): Relaxed (Clari Shun, RN) Monitor Mode: External US (Clari Shun, RN) FHR Baseline Rate : 120 (Clari Shun, RN) Variability: Moderate 6-25 bpm (Clari Shun, RN) Accelerations: 15X15 (Clari Shun, RN) Decelerations: None (Clari Shun, RN) Pitocin (milliunit): Pitocin Remains (milliunits) @ (Annotations: 6) (Clari Shun, RN) Datetime: 02/02/2017 10:35 Monitor Interventions for UA: [place] Adjusted (Clari Shun, RN) Datetime: 02/02/2017 10:34 Pitocin (milliunit): Pitocin Increased to (milliunits) @ 6 (Clari Shun, RN) Datetime: 02/02/2017 10:30 Monitor Mode: External; Palpation (Clari Shun, RN) Frequency (min): none (Clari Shun, RN) Quality: Mild (Clari Shun, RN) Resting Tone (Palpate): Relaxed (Clari Shun, RN) Monitor Mode: External US (Clari Shun, RN) FHR Baseline Rate : 135 (Clari Shun, RN) Variability: Moderate 6-25 bpm (Clari Shun, RN) Accelerations: 15X15 (Clari Shun, RN) Decelerations: None (Clari Shun, RN) Pitocin (milliunit): Pitocin Remains (milliunits) @ (Annotations: 4) (Clari Shun, RN) Datetime: 02/02/2017 10:15 Monitor Mode: External; Palpation (Clari Shun, RN) Frequency (min): x1 (Clari Shun, RN) Quality: Mild (Clari Shun, RN) Duration (sec): 70 (Clari Shun, RN) Resting Tone (Palpate): Relaxed (Clari Shun, RN) Monitor Mode: External US (Clari Shun, RN) FHR Baseline Rate : 135 (Clari Shun, RN) Variability: Moderate 6-25 bpm (Clari Shun, RN) Accelerations: 15X15 (Clari Shun, RN) Decelerations: None (Clari Shun, RN) Pitocin (milliunit): Pitocin Remains (milliunits) @ 4 (Clari Shun, RN) Datetime: 02/02/2017 10:04 Monitor Interventions for UA: [place] Adjusted (Clari Shun, RN) Monitor Interventions for FHR: Ultrasound Adjusted (Clari Shun, RN) Pitocin (milliunit): Pitocin Increased to (milliunits) @ 4 (Clari Shun, RN) Patient Position/Activity: Left Lateral (Clari Shun, RN) Datetime: 02/02/2017 10:00 Monitor Mode: External; Palpation (Clari Shun, RN) Frequency (min): occ (Clari Shun, RN) Quality: Mild (Clari Shun, RN) Resting Tone (Palpate): Relaxed (Clari Shun, RN) Monitor Mode: External US (Clari Shun, RN) FHR Baseline Rate : 140 (Clari Shun, RN) Variability: Moderate 6-25 bpm (Clari Shun, RN) Accelerations: 15X15 (Clari Shun, RN) Decelerations: None (Clari Shun, RN) Pitocin (milliunit): Pitocin Remains (milliunits) @ 2 (Clari Shun, RN) Datetime: 02/02/2017 09:59 Pain Scale: 0 (Clari Shun, RN) LaborFlag: Antepartum (QS system process) Datetime: 02/02/2017 09:50 NBP Sys/Leida/Mean (mmHg): 110 (QS system process) : 69 (QS system process) : 85 (QS system process) Pulse: 82 (QS system process) LaborFlag: Antepartum (QS system process) Datetime: 02/02/2017 09:45 Monitor Mode: External; Palpation (Clari Shun, RN) Frequency (min): 12 (Clari Shun, RN) Quality: Mild (Clari Shun, RN) Duration (sec): 60-70 (Clari Shun, RN) Resting Tone (Palpate): Relaxed (Clari Shun, RN) Monitor Mode: External US (Clari Shun, RN) FHR Baseline Rate : 145 (Clari Shun, RN) Variability: Moderate 6-25 bpm (Clari Shun, RN) Accelerations: None (Clari Shun, RN) Decelerations: None (Clari Shun, RN) Pitocin (milliunit): Pitocin Remains (milliunits) @ 2 (Clari Shnu, RN) Datetime: 02/02/2017 09:30 Monitor Mode: External; Palpation (Clari Shun, RN) Frequency (min): occ (Clari Shun, RN) Quality: Mild (Clari Shun, RN) Resting Tone (Palpate): Relaxed (Clari Shun, RN) Monitor Mode: External US (Clari Shun, RN) FHR Baseline Rate : 135 (Clari Shun, RN) Variability: Moderate 6-25 bpm (Clari Shun, RN) Accelerations: 15X15 (Clari Shun, RN) Decelerations: None (Clari Shun, RN) Pitocin (milliunit): Pitocin Started (milliunits) @ 2 (Clari Shun, RN) Datetime: 02/02/2017 09:20 NBP Sys/Leida/Mean (mmHg): 103 (QS system process) : 70 (QS system process) : 81 (QS system process) Pulse: 83 (QS system process) LaborFlag: Antepartum (QS system process) Datetime: 02/02/2017 09:15 Pain Scale: 0 (Clari Shun, RN) Pain Presence: None/Denies (Clari Shun, RN) Pain Type: N/A (Clari Shun, RN) Vaginal Bleeding: None (Clari Shun, RN) Level of Consciousness: Fully Conscious (Clari Shun, RN) Headache: Denies (Clari Shun, RN) Breath Sounds, Left: Clear and Equal (Clari Shun, RN) Breath Sounds, Right: Clear and Equal (Clari Shun, RN) Nausea/Vomiting: Denies (Clari Shun, RN) RUQ Epigastric Pain: Denies (Clari Shun, RN) LaborFlag: Antepartum (QS system process) Datetime: 02/02/2017 09:12 IV/Blood Work: IV Started; IV Bolus Started; Labs Drawn (Clari Shun, RN) Datetime: 02/02/2017 09:00 Monitor Mode: External; Palpation (Clari Shun, RN) Frequency (min): occ (Clari Shun, RN) Quality: Mild (Clari Shun, RN) Resting Tone (Palpate): Non Relaxed (Clari Shun, RN) Monitor Mode: External US (Clari Shun, RN) FHR Baseline Rate : 135 (Clari Shun, RN) Variability: Moderate 6-25 bpm (Clari Shun, RN) Accelerations: 15X15 (Clari Shun, RN) Decelerations: None (Clari Shun, RN) Datetime: 02/02/2017 08:53 Dilatation (cm): 1.0 (Clari Shun, RN) Effacement (%): 50 (Clari Shun, RN) Station: -3 (Clari Shun, RN) Exam by: Isauro Contreras CNM (Clari Hoffmann, TANNA) Datetime: 02/02/2017 08:52 NBP Sys/Leida/Mean (mmHg): 103 (QS system process) : 76 (QS system process) : 86 (QS system process) Pulse: 104 (QS system process) Communication Comments: Isauro Contreras CNM at bedside (Clari Hoffmann RN) LaborFlag: Antepartum (QS system process) Datetime: 02/02/2017 08:47 Patient Position/Activity: Right Tilt (Clari Hoffmann RN)
[2017-02-02] MEDS ORDERED: MISOPROSTOL 0.1 MG TABLET PO ONE (21:00)
[2017-02-02] MEDS ORDERED: OXYCODONE-ACETAMINOPHEN 5-325 MG TABLET PO PRN ×2 (21:31)
[2017-02-02] MEDS ORDERED: METHYLERGONOVINE MALEATE INJ/PF 0.2 MG/1 ML AMPULE IM ONE (22:00)
--- NOTE | 2017-02-03 06:00 | L&D General Admission ---
General Admit Datetime Report Generated by CPN: 02/03/2017 06:00 INFORMATION Patient Age: 41 (10/13/2016 19:02:QS system process) EDC: 02/08/2017 00:00 (10/13/2016 19:10:Erin Porter RN) : 5 (10/13/2016 19:10:Erin Porter RN) Para: 4 (10/13/2016 20:22:Erin Porter RN) Term: 4 (10/13/2016 19:10:Erin Porter RN) : 0 (10/13/2016 19:10:Erin Porter RN) Spontaneous Abortions: 0 (10/13/2016 19:10:Erin Porter RN) Induced Abortions: 0 (10/13/2016 19:10:Erin Porter RN) Livin (10/13/2016 19:10:Erin Porter RN) Cesareans: 1 (10/13/2016 19:10:Erin Porter RN) VBACs: 4 (10/13/2016 19:10:Erin Porter RN) Ectopic: 0 (10/13/2016 19:10:Erin Porter RN) Multiple Births: 0 (10/13/2016 19:10:Erin Porter RN) Baby, Number in Womb: 1 (10/13/2016 20:22:Erin Porter RN) CARE Primary Middle School Music Teacher: [facility] (10/13/2016 19:10:Erin Porter RN) Middle School Music Teacher Other: [place] (10/13/2016 19:10:Erin Porter RN) Month of 1st Visit: July (10/13/2016 19:10:Erin Porter RN) Adequate Care: Yes (10/13/2016 19:10:Erin Porter RN) Height (in): 66 (02/02/2017 17:54:QS system process) ALLERGIES Medication Allergy: No (10/13/2016 19:10:Erin Porter RN) Medication Allergies: No Known Allergies (10/13/2016) (10/13/2016 20:13:QS system process) Latex Allergy: No Latex Allergies (10/13/2016 19:10:Erin Porter RN) COMMUNICATION Primary Language: Telugu (10/13/2016 19:10:Erin Porter RN) Medical Tx Preferred Language: Telugu (10/13/2016 19:10:Erin Porter RN) Communication Barrier(s): None (10/13/2016 19:10:Erin Porter RN) DEMOGRAPHICS Address: [address] [place] [id number] (10/13/2016 19:02:QS system process) Zipcode: [address] (10/13/2016 19:02:QS system process) Home (01/31/2017 00:15:QS system process) SSN: [id number] (10/13/2016 19:02:QS system process) Next of Kin Name: OSMAR STRAUSS (10/13/2016 19:02:QS system process) Next of Kin (01/31/2017 00:15:QS system process) Next of Kin Relationship: SPO (10/13/2016 19:02:QS system process) Date of : 1975 (10/13/2016 19:02:QS system process) Marital Status: (10/13/2016 19:02:QS system process) Sex: Female (10/13/2016 19:02:QS system process) Race: (10/13/2016 19:02:QS system process) Ethnicity: Non- or (10/13/2016 19:02:QS system process) Scientologist: None (10/13/2016 19:02:QS system process) DRUG AND ALCOHOL USE Alcohol: No (10/13/2016 19:10:Erin Ring, RN) Cigarettes: Never Smoker. [id number] (10/13/2016 19:10:Erin Porter RN) Marijuana: No (10/13/2016 19:10:Erin Porter RN) Cocaine: No (10/13/2016 19:10:Erin Porter RN) Other Illicit Drugs: No (10/13/2016 19:10:Erin Porter RN) VACCINE HISTORY Influenza Vaccine: No (10/13/2016 19:10:Erin Porter RN) Pneumococcal Vaccine: No (10/13/2016 19:10:Erin Porter RN) Tetanus Vaccine: No (10/13/2016 19:10:Erin Porter RN) Tdap Vaccine: No (10/13/2016 19:10:Erin Porter RN) Hepatitis B Vaccine: No (10/13/2016 19:10:Erin Porter RN) Founder Ceo & President: [facility] (10/13/2016 19:10:Clari Hoffmann RN) Feeding Preference: Formula (10/13/2016 19:10:Marilu Jacobson RN) Benefit of Breast Feed Discussed: Yes (10/13/2016 19:10:Marilu Jacobson RN) Circumcision: Yes (10/13/2016 19:10:Marilu Jacobson RN) Classes Attended: No (10/13/2016 19:10:Marilu Jacobson RN) Tubal Ligation: No (10/13/2016 19:10:Marilu Jacobson RN) Tubal Authorization Signed: N/A (10/13/2016 19:10:Marilu Jacobson RN) Pain Management Plans: Natural (10/13/2016 19:10:Erin Porter RN) Plans for Labor and Delivery: None (10/13/2016 19:10:Marilu Jacobson RN) Support Person: Osmar Strauss (10/13/2016 19:10:Erin Porter RN) Support Person Relationship: (10/13/2016 19:10:Erin Porter RN) Cultural/Spritual Practice: No (10/13/2016 19:10:Marilu Jacobson RN) Spir/Cult Dietary Needs: No (10/13/2016 19:10:Marilu Jacobson RN) LIVING SITUATION/DISCHARGE PLAN Living Arrangements: Apartment (10/13/2016 19:10:Erin Porter RN) Adequate Access to:: Electric; Heat; Refrigeration; Plumbing/Running water; Phone; Transportation (10/13/2016 19:10:Erin Porter RN) WIC Program: Yes (10/13/2016 19:10:Erin Porter RN) Discharge Physical Security Specialist Person: Osmar (10/13/2016 19:10:Erin Porter RN) Person to Help after Discharge: Osmar (10/13/2016 19:10:Erin Porter RN) Currently Using Commun Resources: Yes (10/13/2016 19:10:Erin Porter RN) Specify Current Resource Used: Medicaid; foodstamps (10/13/2016 19:10:Erin Porter RN) Outside Agency/[employer]: N/A (10/13/2016 19:10:Erin Porter RN) Car Seat for Discharge: Yes (10/13/2016 19:10:Marilu Jacobson RN) Adoption Requested: No (10/13/2016 19:10:Erin Porter RN) Pt Contact w/ Post : N/A (10/13/2016 19:10:Erin Porter RN) LABS Blood Type: O Positive (10/13/2016 19:10:Mirna Whitt RN) Antibody Screen: Negative (10/13/2016 19:10:Mirna Whitt RN) Rho(G) this : Not Applicable (10/13/2016 19:10:Mirna Whitt RN) Hemoglobin: 12.4 (02/02/2017 09:05:QS system process) Hematocrit: 35.9 L (02/02/2017 09:05:QS system process) MCV: 84 (02/02/2017 09:05:QS system process) Group Beta Strep: Negative (10/13/2016 19:10:Mirna Whitt RN) Gonorrhea: Negative (10/13/2016 19:10:Mirna Whitt RN) Chlamydia: Negative (10/13/2016 19:10:Mirna Whitt RN) RPR/VDRL: Nonreactive (10/13/2016 19:10:Mirna Whitt RN) HIV Results: Negative (10/13/2016 19:10:Mirna Whitt RN) Hepatitis B: Negative (10/13/2016 19:10:Mirna Whitt RN) Rubella: Immune (10/13/2016 19:10:Mirna Whitt RN) Varicella: Non Susceptible (10/13/2016 19:10:Mirna Whitt RN) Pap Test: Normal (10/13/2016 19:10:Mirna Whitt RN) OB/PREVIOUS HISTORY Previous Procedures: Ultrasound (10/13/2016 19:10:Erin Porter RN) Current Procedures: Ultrasound (10/13/2016 19:10:Erin Porter RN) History of Previous : Yes (10/13/2016 19:10:Erin Porter RN) History of Gestational Diabetes: No (10/13/2016 19:10:Erin Porter RN) History of PIH: No (10/13/2016 19:10:Erin Porter RN) History of Incompetent Cervix: No (10/13/2016 19:10:Erin Porter RN) History of Placenta Previa/Abrup: No (10/13/2016 19:10:Erin Porter RN) History of Macrosomia: Yes (10/13/2016 19:10:Erin Porter RN) History of IUGR: No (10/13/2016 19:10:Erin Porter RN) History of Hemorrhage: No (10/13/2016 19:10:Erin Porter RN) History of Loss/Stillborn: No (10/13/2016 19:10:Erin Porter RN) History of : No (10/13/2016 19:10:Erin Porter RN) History of D (Rh) Sensitization: No (10/13/2016 19:10:Erin Porter RN) History Recurrent Loss/Stillborn: No (10/13/2016 19:10:Erin Porter RN) History Depression/PP Depression: Yes (10/13/2016 19:10:Erin Porter RN) History of Uterine Anomaly/JAMILA: No (10/13/2016 19:10:Erin Porter RN) History of Infertility: No (10/13/2016 19:10:Erin Porter RN) History of ART Treatment: No (10/13/2016 19:10:Erin Porter RN) History of JAMILA: No (10/13/2016 19:10:Erin Porter RN) Comments Obstetrical History: G1: 1996; for FTP; male 9# @ 40 weeks G2: 1999; , girl 8#1oz @ 40 weeks G3: 2004; boy 8#4 oz @ 40 weeks G4: 2005; girl 7# 8oz @ 40 weeks G5: current (10/13/2016 19:10:Erin Porter RN) MEDICAL HISTORY Med Hx Diabetes: Yes (10/13/2016 19:10:Erin Porter RN) Diabetes Type: Type II - NIDDM (10/13/2016 19:10:Erin Porter RN) Med Hx Hypertension: No (10/13/2016 19:10:Erin Porter RN) Med Hx Heart Disease: No (10/13/2016 19:10:Erin Porter RN) Med Hx Autoimmune Disorder: No (10/13/2016 19:10:Erin Porter RN) Med Hx Kidney Disease/UTI: No (10/13/2016 19:10:Erin Porter RN) Med Hx Neurologic/Epilepsy: No (10/13/2016 19:10:Erin Porter RN) Med Hx Psychiatric Disorders: No (10/13/2016 19:10:Erin Porter RN) Med Hx Hepatitis/Liver Disease: No (10/13/2016 19:10:Erin Porter RN) Med Hx Varicosities/Phlebitis: No (10/13/2016 19:10:Erin Porter RN) Med Hx Thyroid Dysfunction: No (10/13/2016 19:10:Erin Porter RN) Med Hx Trauma/Violence: No (10/13/2016 19:10:Erin Porter RN) Med Hx Blood Transfusion: No (10/13/2016 19:10:Erin Porter RN) Med Hx Pulmonary (Asthma,TB): No (10/13/2016 19:10:Erin Porter RN) Med Hx Breast: No (10/13/2016 19:10:Erin Porter RN) Med Hx WAFER PRODUCTION LEAD WORKER Surgery: No (10/13/2016 19:10:Erin Porter RN) Med Hx Hospitalization/Surgery: Yes (10/13/2016 19:10:Erin Porter RN) Med Hx Anesthetic Complications: No (10/13/2016 19:10:Erin Porter RN) Med Hx Abnormal Pap Smear: No (10/13/2016 19:10:Erin Porter RN) Other Medical Diseases: No (10/13/2016 19:10:Erin Porter RN) Med Hx Significant Family Hx: No (10/13/2016 19:10:Erin Porter RN) Details of Med/Surg Hx: Was told was type II diabetic prior to gastric bypass surgery, but has since resolved after losing weight; 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 ); hospitalized for the of all children; prior 1996, hernia repair in 2000, gastric bypass 2010 (10/13/2016 19:10:Erin Porter RN) INFECTIOUS HISTORY Inf Hx Gonorrhea: No (10/13/2016 19:10:Erin Porter RN) Inf Hx Chlamydia: No (10/13/2016 19:10:Erin Porter RN) Inf Hx Syphilis: No (10/13/2016 19:10:Erin Porter RN) Inf Hx HIV/AIDS: No (10/13/2016 19:10:Erin Porter RN) Inf Hx Human Papilloma Virus: No (10/13/2016 19:10:Erin Porter RN) Inf Hx Pt/Partner Genital Herpes: Yes (10/13/2016 19:10:Erin Porter RN) Inf Hx Tuberculosis/Exposure: No (10/13/2016 19:10:Erin Porter RN) Inf Hx Hepatitis B,C: No (10/13/2016 19:10:Erin Porter RN) Inf Hx Rash or Viral Illness: No (10/13/2016 19:10:Erin Porter RN) Details of Infectious Hx: Pt has history of herpes (+blood test, denies any outbreak) (10/13/2016 19:10:Erin Porter RN) GENETIC HISTORY Gen Hx Age >=35 at VANI: Yes (10/13/2016 19:10:Erin Porter RN) Gen Hx Thalassemia: No (10/13/2016 19:10:Erin Porter RN) Gen Hx Congenital Heart Defect: No (10/13/2016 19:10:Erin Porter RN) Gen Hx Neural Tube Defect: No (10/13/2016 19:10:Erin Porter RN) Gen Hx Down's Syndrome: No (10/13/2016 19:10:Erin Porter RN) Gen Hx Luis Angel-Sachs: No (10/13/2016 19:10:Erin Porter RN) Gen Hx Niya: No (10/13/2016 19:10:Erin Porter RN) Gen Hx Familial Dysautonomia: No (10/13/2016 19:10:Erin Porter RN) Gen Hx Sickle Cell Disease/Trait: No (10/13/2016 19:10:Erin Porter RN) Gen Hx Hemophilia/Blood Disorder: No (10/13/2016 19:10:Erin Porter RN) Gen Hx Muscular Dystrophy: No (10/13/2016 19:10:Erin Porter RN) Gen Hx Cystic Fibrosis: No (10/13/2016 19:10:Erin Porter RN) Gen Hx Huntingtons Chorea: No (10/13/2016 19:10:Erin Porter RN) Gen Hx Mental Retardation/Autism: No (10/13/2016 19:10:Erin Porter RN) Gen Hx Tested for Fragile X: No (10/13/2016 19:10:Erin Porter RN) Gen Hx Other Inher/Chromosomal: No (10/13/2016 19:10:Erin Porter RN) Gen Hx Maternal Metabolic DO: No (10/13/2016 19:10:Erin Porter RN) Gen Hx Pt Father or FOB Defect: No (10/13/2016 19:10:Erin Porter RN) Gen Hx Other Genetic History: No (10/13/2016 19:10:Erin Porter RN) Gen Hx Drugs/Meds since LMP: Yes (10/13/2016 19:10:Erin Porter RN) Gen Hx Medications: PNV; tylenol (10/13/2016 19:10:Erin Porter RN)
--- NOTE | 2017-02-03 06:00 | L&D Current Admission ---
Current Admit Datetime Report Generated by CPN: 02/03/2017 06:00 ADMISSION INFORMATION Current Admit Date/Time: 02/02/2017 08:40 (02/02/2017 09:01:Clari Hoffmann RN) Reason for Admission: Induction of Labor (02/02/2017 09:01:Clari Hoffmann RN) Chief Complaint: Scheduled Induction of Labor (02/02/2017 09:15:Clari Hoffmann RN) EGA per Dates: 39.1 (02/02/2017 09:01:QS system process) Method of Arrival: Ambulatory (02/02/2017 09:01:Clari Hoffmann RN) Admitted From: Home (02/02/2017 09:01:Clari Hoffmann RN) Reason for Induction: Other (02/02/2017 09:01:Clari Hoffmann RN) Reason for Induction- Other: IUGR (02/02/2017 09:01:Clari Hoffmann RN) Records Available: Yes (02/02/2017 09:01:Clari Hoffmann RN) General Admission Information: Reviewed (02/02/2017 09:01:Clari Hoffmann RN) BELONGINGS/ADVANCED DIRECTIVES Other Belongings: see signed belongings consent (02/02/2017 09:01:Clari Hoffmann RN) Disposition of Belongings: Kept with Patient (02/02/2017 09:01:Clari Hoffmann RN) Advance Direct for Healthcare: No, and Wants No Information (02/02/2017 09:01:Clari Hoffmann RN) Durable Power of Head Greenskeeper: No (02/02/2017 09:01:Clari Hoffmann RN) Living Will: No (02/02/2017 09:01:Clari Hoffmann RN) Organ Donor: Yes (02/02/2017 09:01:Clari Hoffmann RN) Pt Rights Information Given: Yes (02/02/2017 09:01:Clari Hoffmann RN) Pt Understands Pt Rights: Yes (02/02/2017 09:01:Clari Hoffmann RN) LEARNING ASSESSMENT Knowledge Level: Understands L_D Process (02/02/2017 09:01:Clari Hoffmann RN) Barriers to Learning: None (02/02/2017 09:01:Clari Hoffmann RN) Learning Readiness: Motivated (02/02/2017 09:01:Clari Hoffmann RN) Learns Best By: 1 to 1 Instruction (02/02/2017 09:01:Clari Hoffmann RN) Learning Needs: Labor and Delivery Process; Symptoms to Report; Treatment Plan; Medication; Diagnosis; Nutrition; Equipment; Care; Community Resources (02/02/2017 09:01:Clari Hoffmann RN) DOMESTIC VIOLANCE SCREENING Dom Viol Threatened/Hurt: No (02/02/2017 09:01:Clari Hoffmann RN) Hx of Abuse/Neglect past 2yrs: No (02/02/2017 09:01:Clari Hoffmann RN) Feel Unsafe Going Home: No (02/02/2017 09:01:Clari Hoffmann RN) Addt'l Observ Indicating Abuse: No (02/02/2017 09:01:Clari Hoffmann RN) Reason Unable to Complete Screen: N/A, Screen Completed (02/02/2017 09:01:Clari Hoffmann RN) Considered Personal Harm/Suicide: No (02/02/2017 09:01:Clari Hoffmann RN) NUTRITIONAL/FUNCTIONAL SCREENING Problem with Appetite >5 Days: No (02/02/2017 09:01:Clari Hoffmann RN) Chew/Swallow Difficulties: No (02/02/2017 09:01:Clari Hoffmann RN) Inappropriate Wt Gain/Loss: No (02/02/2017 09:01:Clari Hoffmann RN) Presence Skin Breakdown/Ulcer: No (02/02/2017 09:01:Clari Hoffmann RN) Special Diet: No (02/02/2017 09:01:Clari Hoffmann RN) Pt Requests Online Marketing Strategist Visit: No (02/02/2017 09:01:Clari Hoffmann RN) Hx of Any of the Following?: N/A (02/02/2017 09:01:Clari Hoffmann RN) New Diagnosis of: N/A (02/02/2017 09:01:Clari Hoffmann RN) Requires Assist w/Ambulation: No (02/02/2017 09:01:Clari Hoffmann RN) Uses Assist Device to Ambulate: No (02/02/2017 09:01:Clari Hoffmann RN) Pt Requires Help w/ADL's: No (02/02/2017 09:01:Clari oHffmann RN)
--- NOTE | 2017-02-03 06:15 | L&D Care Plan ---
LD CARE PLANS Datetime Report Generated by CPN: 02/03/2017 06:15 Datetime: 02/02/2017 07:28 State: Risk For (Clari Hoffmann RN) Related To: Labor and Delivery Process (Clari Hoffmann RN) Goal(s): Patients Pain will be Assessed and Managed; Patient will Verbalize Adequate Relief of Pain or the Ability to [place] with Current Pain (Clari Hoffmann RN) Interventions: Assess Pain Severity on Scale of 0 (None) to 5 (Severe); Assess Type, Location and Intensity of Pain Each Time Client Reports Discomfort and Notify Provider if Unusal Pain Develops; Encourage Proper Breathing and Relaxation Techniques; Offer Alternatives Such as Repositioning, Calm Environment, Massages, Diversional Activities, Ice Pack, Splinting, and Ambulation (Clari Hoffmann RN) Outcome: Patient will Report Absence or Relief of Pain Consistent with Established Pain Goal (Clari Hoffmann RN) Status: Ongoing (Clari Hoffmann RN) Outcome: Patient will have a Decrease in Signs and Symptoms of Discomfort (Clari Hoffmann RN) Status: Ongoing (Clari Hoffmann RN) State: Not Applicable (Clari Hoffmann RN) State: Not Applicable (Clari Hoffmann RN) State: Risk For (Clari Hoffmann RN) Related To: Prolonged Labor or Induction; Premature/Prolonged Rupture of Membranes; Altered Tissue Integrity (Clari Hoffmann RN) Goal(s): The Patient will be Free of Infection, Vital Signs Stable and Lab Work within Normal Parameters (Clari Hoffmann RN) Interventions: Instruct and Reinforce Proper Handwashing, Hygiene, and Care Techniques to Patient and Family; Monitor Vital Signs; Monitor Patient for the Following Signs of Infection: Fever, Abdominal Tenderness, Unusual Discharge; Monitor Aminiotic Fluid, Urine and Lochia for Color and Odor; Assess IV Sites per Hospital Policy (Clari Hoffmann RN) Outcome: Patient will Remain Free of Infection (Clrai Hoffmann RN) Status: Ongoing (Clari Hoffmann RN) Outcome: Infection will be Recognized Early to Allow for Prompt Treatment (Clari Hoffmann RN) Status: Ongoing (Clari Hoffmann RN) Outcome: Patient will have Vital Signs Within Expected Range (Clari Hoffmann RN) Status: Ongoing (Clari Hoffmann RN) State: Not Applicable (Clari Hoffmann RN) State: Risk For (Clari Hoffmann RN) Related To: Labor and Delivery Process; Uterine Rupture (Clari Hoffmann RN) Goal(s): Patient will Remain Free from Injury (Clari Hoffmann RN) Interventions: Monitoring as per Hospital Protocol; Assess Neurological Status; Perform Risk Assessment of Patients with Induction and ; Perform Fall Risk Assessment and Prevention per Hospital Protocol (Clari Hoffmann RN) Outcome: Successful Fall Risk Prevention (Clari Hoffmann RN) Status: Ongoing (Clari Hoffmann RN) Outcome: Patient will Deliver Infant without Adverse Sequela (Clari Hoffmann RN) Status: Ongoing (Clari Hoffmann RN) State: Risk For (Clari Hoffmann RN) Related To: Vaginal Delivery (Clari Hoffmann RN) Goal(s): Patient will Maintain Optimal Skin Integrity, Free of Breakdown, Injury or Infection (Clari Hoffmann RN) Interventions: Complete Screening for Pressure Ulcer Risk and Initiate Protocol per Hospital Policy; Monitor Site of Skin Impairment for Color Changes, Redness, Swelling, Warmth, Pain or Other Signs of Infection; Encourage and Assist with Position Changes (Clari Hoffmann RN) Outcome: Patient will not have Evidence of Injury Such as Skin Breakdown, Scrapes, Cuts, or Bruising (Clari Hoffmann RN) Status: Ongoing (Clari Hoffmann RN) Outcome: Patient will Report Any Altered Sensation or Pain at Site of Skin Impairment (Clari Hoffmann RN) Status: Ongoing (Clari Hoffmann RN) State: Not Applicable (Clari Hoffmann RN) State: Not Applicable (Clari Hoffmann RN) State: Not Applicable (Clari Hoffmann RN) Datetime: 02/02/2017 07:26 State: Risk For (Clari Hoffmann RN) Related To: Labor and Delivery Process (Clari Hoffmann RN) Goal(s): Patients Pain will be Assessed and Managed; Patient will Verbalize Adequate Relief of Pain or the Ability to [place] with Current Pain (Clari Hoffmann RN) Interventions: Assess Pain Severity on Scale of 0 (None) to 5 (Severe); Assess Type, Location and Intensity of Pain Each Time Client Reports Discomfort and Notify Provider if Unusal Pain Develops; Encourage Proper Breathing and Relaxation Techniques; Offer Alternatives Such as Repositioning, Calm Environment, Massages, Diversional Activities, Ice Pack, Splinting, and Ambulation (Clari Hoffmann RN) Outcome: Patient will Report Absence or Relief of Pain Consistent with Established Pain Goal (Clari Hoffmann RN) Status: Ongoing (Clari Hoffmann RN) Outcome: Patient will have a Decrease in Signs and Symptoms of Discomfort (Clari Hoffmann RN) Status: Ongoing (Clari Hoffmann RN) State: Not Applicable (Clari Hoffmann RN) State: Not Applicable (Clari Hoffmann RN) State: Risk For (Clari Hoffmann RN) Related To: Prolonged Labor or Induction; Premature/Prolonged Rupture of Membranes; Altered Tissue Integrity (Clari Hoffmann RN) Goal(s): The Patient will be Free of Infection, Vital Signs Stable and Lab Work within Normal Parameters (Clari Hoffmann RN) Interventions: Instruct and Reinforce Proper Handwashing, Hygiene, and Care Techniques to Patient and Family; Monitor Vital Signs; Monitor Patient for the Following Signs of Infection: Fever, Abdominal Tenderness, Unusual Discharge; Monitor Aminiotic Fluid, Urine and Lochia for Color and Odor; Assess IV Sites per Hospital Policy (Clari Hoffmann RN) Outcome: Patient will Remain Free of Infection (Clari Hfofmann RN) Status: Ongoing (Clari Hoffmann RN) Outcome: Infection will be Recognized Early to Allow for Prompt Treatment (Clari Hoffmann RN) Status: Ongoing (Clari Hoffmann RN) Outcome: Patient will have Vital Signs Within Expected Range (Clari Hoffmann RN) Status: Ongoing (Clari Hoffmann RN) State: Not Applicable (Clari Hoffmann RN) State: Risk For (Clari Hoffmann RN) Related To: Labor and Delivery Process; Uterine Rupture (Clari Hoffmann RN) Goal(s): Patient will Remain Free from Injury (Clari Hoffmann RN) Interventions: Monitoring as per Hospital Protocol; Assess Neurological Status; Perform Risk Assessment of Patients with Induction and ; Perform Fall Risk Assessment and Prevention per Hospital Protocol (Clari Hoffmann RN) Outcome: Successful Fall Risk Prevention (Clari Hoffmann RN) Status: Ongoing (Clari Hoffmann RN) Outcome: Patient will Deliver without Adverse Sequela (Clari Hoffmann RN) Status: Ongoing (Clari Hoffmann RN) State: Risk For (Clari Hoffmann RN) Related To: Vaginal Delivery (Clari Hoffmann RN) Goal(s): Patient will Maintain Optimal Skin Integrity, Free of Breakdown, Injury or Infection (Clari Hoffmann RN) Interventions: Complete Screening for Pressure Ulcer Risk and Initiate Protocol per Hospital Policy; Monitor Site of Skin Impairment for Color Changes, Redness, Swelling, Warmth, Pain or Other Signs of Infection; Encourage and Assist with Position Changes (Clari Hoffmann RN) Outcome: Patient will not have Evidence of Injury Such as Skin Breakdown, Scrapes, Cuts, or Bruising (Clari Hoffmann RN) Status: Ongoing (Clari Hoffmann RN) Outcome: Patient will Report Any Altered Sensation or Pain at Site of Skin Impairment (Clari Hoffmann RN) Status: Ongoing (Clari Hoffmann RN) State: Not Applicable (Clari Hoffmann RN) State: Not Applicable (Clari Hoffmann RN) State: Not Applicable (Clari Hoffmann RN)
[2017-02-03] MEDS: IBUPROFEN 800 MG TABLET PO SCH ×3 (06:35→21:34)
[2017-02-03 07:27] LABS: HEMATOCRIT 28.1 % (36.0-47.0); HGB HCT DIFFERENCE 1.6; MEAN CORPUSCULAR HEMOGLOBIN 29.4 pg (27.0-33.4); MEAN CORPUSCULAR HGB CONC 35.1 g/dL (32.0-36.0); MEAN CORPUSCULAR VOLUME 84 fl (80-97); RED BLOOD COUNT 3.35 10^6/uL (3.72-5.28); RED CELL DISTRIBUTION WIDTH 13.2 % (11.5-14.0); WHITE BLOOD COUNT 7.8 10^3/uL (4.0-10.5)
[2017-02-03 07:32] LABS: HEMOGLOBIN 9.9 g/dL (12.0-15.5)
--- NOTE | 2017-02-03 08:38 | PDOC PROGRESS REPORT ---
Subjective-OB Subjective: Post Delivery Day: 1 41 year old. Denies any needs at this time, states lochia is stable, voiding without difficulty, pain well controlled. Physical Exam (OB) Vital Signs: Temp Pulse Resp BP Pulse Ox 98.1 F 64 18 113/74 98 02/02/17 23:46 02/02/17 23:46 02/02/17 23:46 02/02/17 23:46 02/02/17 23:46 Intake & Output 02/02/17 02/03/17 02/04/17 06:59 06:59 06:59 Weight 120 kg - Lochia Lochia Amount: Heavy >50 ml Lochia Color: Rubra/Red - Abdomen Description: Soft, Round Hernia Present: No Fundal Description: Firm, Midline Fundal Height: u/u - u/2 Objective-Diagnostic Laboratory: 02/03/17 07:05 02/02/17 02/02/17 02/02/17 08:50 09:05 09:05 WBC 6.3 RBC 4.26 Hgb 12.4 Hct 35.9 L MCV 84 MCH 29.1 MCHC 34.4 RDW 13.0 Plt Count 177 Seg Neutrophils % 65.7 Lymphocytes % 27.5 Monocytes % 5.7 Eosinophils % 0.7 Basophils % 0.4 Absolute Neutrophils 4.1 Absolute Lymphocytes 1.7 Absolute Monocytes 0.4 Absolute Eosinophils 0.0 Absolute Basophils 0.0 Urine Color YELLOW Urine Appearance SLIGHTLY-CLOUDY Urine pH 5.0 Ur Specific [place] 1.011 Urine Protein NEGATIVE Urine Glucose (UA) NEGATIVE Urine Ketones NEGATIVE Urine Blood NEGATIVE Urine Nitrite NEGATIVE Ur Leukocyte Esterase MODERATE H Blood Type O POSITIVE Antibody Screen NEGATIVE 02/03/17 07:05 WBC 7.8 RBC 3.35 L Hgb 9.9 L D Hct 28.1 L MCV 84 MCH 29.4 MCHC 35.1 RDW 13.2 Plt Count 133 L Seg Neutrophils % Lymphocytes % Monocytes % Eosinophils % Basophils % Absolute Neutrophils Absolute Lymphocytes Absolute Monocytes Absolute Eosinophils Absolute Basophils Urine Color Urine Appearance Urine pH Ur Specific [place] Urine Protein Urine Glucose (UA) Urine Ketones Urine Blood Urine Nitrite Ur Leukocyte Esterase Blood Type Antibody Screen Assessment and Plan(PN) - Assessment and Plan (1) History of Is this a current diagnosis for this admission?: YesPlan: routine pp care (2) Acute blood loss anemia Is this a current diagnosis for this admission?: Yes (3) Spontaneous vaginal delivery Is this a current diagnosis for this admission?: YesPlan: routine pp care - Time Spent with Patient Time with patient: Less than 15 minutes Critical Time spent with patient: Less than 15 minutes Medications reviewed and adjusted accordingly: Yes - Disposition Anticipated Discharge: Home Within: within 24 hours
[2017-02-03] MEDS: FERROUS SULFATE 325 MG TABLET PO SCH ×2 (10:29→17:27)
[2017-02-03] MEDS: SENNOSIDES/DOCUSATE 8.6-50 MG 1 EACH TABLET PO SCH (10:29)
[2017-02-03] MEDS: DOCUSATE SODIUM 100 MG CAPSULE PO SCH ×2 (10:30→17:27)
[2017-02-03] MEDS: PRENATAL VITAMIN W-O CA NO5/FE FUMARATE/FA CAPSULE PO SCH (10:30)
[2017-02-04] MEDS: IBUPROFEN 800 MG TABLET PO SCH (06:06)
--- NOTE | 2017-02-04 08:48 | PDOC DISCHARGE SUMMARY ---
Final Diagnosis Discharge Date: 02/04/17 - Final Diagnosis (1) History of Is this a current diagnosis for this admission?: Yes (2) Acute blood loss anemia Is this a current diagnosis for this admission?: Yes (3) Spontaneous vaginal delivery Is this a current diagnosis for this admission?: Yes Discharge Data - Discharge Medication Home Medications: Vit/Iron Fumarate/FA [ Tablet] 1 tab PO DAILY 10/13/16 Ergocalciferol (Vitamin D2) [Vitamin D] 50,000 unit PO [id number] 01/31/17 Valacyclovir HCl [Valtrex] 500 mg PO DAILY 01/31/17 Docusate Sodium [Colace 100 mg Capsule] 100 mg PO BID #60 capsule 02/04/17 Ferrous Sulfate [Feosol 325 mg Tablet] 325 mg PO BID #60 tablet 02/04/17 Ibuprofen [Motrin 800 mg Tablet] 800 mg PO Q8 #60 tablet 02/04/17 Gestational Age: 39 Reason(s) for Admission: Induction of Labor, Procedures: NST Intrapartum Procedure(s): Spontaneous Vaginal Delivery - Mena Data Baby 1 Female Home with Mother: Yes Complications: No - Diagnosis Test Laboratory: Temp Pulse Resp BP Pulse Ox 98.0 F 64 17 109/72 99 02/04/17 07:29 02/04/17 07:29 02/04/17 07:29 02/04/17 07:29 02/04/17 07:29 02/02/17 02/02/17 02/03/17 08:50 09:05 07:05 RBC 4.26 3.35 L Hgb 12.4 9.9 L D Hct 35.9 L 28.1 L Urine Opiates Screen NEGATIVE - Discharge information/Instructions Discharge Activity: Activity As Tolerated, Pelvic Rest, No tub bath Discharge Diet: Regular Disposition: HOME, SELF-CARE Follow up with: [facility] in: 4, Weeks
[2017-02-04 10:26] VITALS: BP 104/64
[2017-02-04] MEDS: DOCUSATE SODIUM 100 MG CAPSULE PO SCH (10:32)
[2017-02-04] MEDS: SENNOSIDES/DOCUSATE 8.6-50 MG 1 EACH TABLET PO SCH (10:32)
[2017-02-04] MEDS: PRENATAL VITAMIN W-O CA NO5/FE FUMARATE/FA CAPSULE PO SCH (10:32)
[2017-02-04] MEDS: FERROUS SULFATE 325 MG TABLET PO SCH (10:32)
== END 2017-02-04 11:55 | disposition home or self-care (01) | DRG 775 ==
LOC: LR 08:25 → 2S 17:54
PROVIDERS: ADMIT Obstetrics & Gynecology; ATTEND Obstetrics & Gynecology
PROC: 10E0XZZ Delivery of Products of Conception, External Approach (ICD-10-PCS; principal; 2017-02-02)
PROC: 10907ZC Drainage of Amniotic Fluid, Therapeutic from Products of Conception, Via Natural or Artificial Opening (ICD-10-PCS; 2017-02-02)
DX: O36.5930 Maternal care for other known or suspected poor fetal growth, third trimester, not applicable or unspecified (principal); D62 Acute posthemorrhagic anemia; O62.3 Precipitate labor; O34.211 Maternal care for low transverse scar from previous cesarean delivery; N85.8 Other specified noninflammatory disorders of uterus; O99.02 Anemia complicating childbirth; O99.844 Bariatric surgery status complicating childbirth; Z3A.39 39 weeks gestation of pregnancy; Z37.0 Single live birth
CPT/HCPCS: 36415; 80307; 81005; 85025; 85027; 86592; 86850; 86900; 86901; J2210; J2590; J3490

== ENCOUNTER 2017-02-12 18:15 | Emergency (ER) | payer MEDICAID ==
--- NOTE | 2017-02-12 18:44 | ER Document Report ---
ED Medical Screen (RME) - General Chief Complaint: Vaginal Bleeding Stated Complaint: VAGINAL BLEEDING Notes: Patient is here because she's having heavy vaginal bleeding. Patient is approximately 10 days by vaginal delivery without complications. She had almost stopped bleeding yesterday and then about 1 PM today, she started passing clots and passed at least 5 big ones. She used 4 pads this afternoon and still bleeding. Some mild abdominal pain. No fevers. TRAVEL OUTSIDE OF THE [place] IN LAST 30 DAYS: No - Related Data Allergies/Adverse Reactions: No Known Allergies Allergy (Verified 10/13/16 20:13) Past Medical History Renal/ Medical History: Denies: Hx Peritoneal Dialysis Physical Exam - Vital signs Vitals: Temp Pulse Resp BP Pulse Ox 98.6 F 79 18 143/94 H 100 02/12/17 18:20 02/12/17 18:20 02/12/17 18:20 02/12/17 18:20 02/12/17 18:20 Course - Vital Signs Vital signs: Temp Pulse Resp BP Pulse Ox 98.6 F 79 18 143/94 H 100 02/12/17 18:20 02/12/17 18:20 02/12/17 18:20 02/12/17 18:20 02/12/17 18:20
[2017-02-12 18:51] LABS: ABSOLUTE LYMPHOCYTES (AUTO) 1.6 10^3/uL (0.5-4.7); ABSOLUTE MONOCYTES (AUTO) 0.4 10^3/uL (0.1-1.4); ABSOLUTE NEUT (AUTO) 2.1 10^3/uL (1.7-8.2); BASOPHILS % (AUTO) 0.4 % (0-2); EOSINOPHILS % (AUTO) 0.5 % (0-6); HEMATOCRIT 29.7 % (36.0-47.0); HGB HCT DIFFERENCE 0.3; LYMPHOCYTES % (AUTO) 39.4 % (13-45); MEAN CORPUSCULAR HEMOGLOBIN 28.5 pg (27.0-33.4); MEAN CORPUSCULAR HGB CONC 33.5 g/dL (32.0-36.0); MEAN CORPUSCULAR VOLUME 85 fl (80-97); RED BLOOD COUNT 3.49 10^6/uL (3.72-5.28); RED CELL DISTRIBUTION WIDTH 13.1 % (11.5-14.0); SEGMENTED NEUTROPHILS % (AUTO) 50.7 % (42-78); WHITE BLOOD COUNT 4.2 10^3/uL (4.0-10.5)
[2017-02-12 19:03] LABS: PROTHROMBIN TIME 16.2 SEC (11.4-15.4)
[2017-02-12 19:17] LABS: ALANINE AMINOTRANSFERASE 29 U/L (9-52); ALBUMIN 3.5 g/dL (3.5-5.0); ALKALINE PHOSPHATASE 121 U/L (38-126); ANION GAP 10 (5-19); ASPARTATE AMINO TRANSFERASE 27 U/L (14-36); BILIRUBIN,DIRECT 0.1 mg/dL (0.0-0.4); BILIRUBIN,TOTAL 0.4 mg/dL (0.2-1.3); BLOOD UREA NITROGEN 9 mg/dL (7-20); CARBON DIOXIDE 24 mmol/L (22-30); CHLORIDE 107 mmol/L (98-107); CREATININE RESULT 0.78 mg/dL (0.52-1.25); GLUCOSE 82 mg/dL (75-110); SODIUM 141.3 mmol/L (137-145); TOTAL PROTEIN 5.9 g/dL (6.3-8.2)
--- NOTE | 2017-02-12 19:21 | ER Document Report ---
ED GI/ - General Chief Complaint: Vaginal Bleeding Stated Complaint: VAGINAL BLEEDING Time seen by provider: 19:10 Notes: Patient is a 41-year-old female that comes emergency department for chief complaint of heavy vaginal bleeding with clots, bleeding started about 1 PM, patient has soaked through 4 pads this afternoon. Patient states that she had almost stopped bleeding completely 10 days postop with induced vaginal delivery with no complications reported when this began today. She denies any trauma. She states she has had intermittent mid to lower left pains since the delivery and this has not increased today. Patient denies fever, vomiting, dizziness, passing out. Past medical history of , gastric bypass, patient states she takes no medications other than vitamins, denies any other medical history. TRAVEL OUTSIDE OF THE [place] IN LAST 30 DAYS: No - Related Data Allergies/Adverse Reactions: No Known Allergies Allergy (Verified 10/13/16 20:13) Past Medical History - General Information source: Patient - Social History Smoking Status: Never Smoker Frequency of alcohol use: None Drug Abuse: None Lives with: Family Family History: Reviewed & Not Pertinent - Medical History Medical History: Negative Renal/ Medical History: Denies: Hx Peritoneal Dialysis Past Surgical History: Reports: Hx Section, Hx Gastric Bypass Surgery - Immunizations Immunizations up to date: Yes Hx Diphtheria, Pertussis, Tetanus Vaccination: Yes Review of Systems - Review of Systems Constitutional: No symptoms reported EENT: No symptoms reported Cardiovascular: No symptoms reported Respiratory: No symptoms reported Gastrointestinal: No symptoms reported Genitourinary: No symptoms reported Female Genitourinary: See HPI Musculoskeletal: No symptoms reported Skin: No symptoms reported Hematologic/Lymphatic: No symptoms reported Neurological/Psychological: No symptoms reported Physical Exam - Vital signs Vitals: Temp Pulse Resp BP Pulse Ox 98.6 F 79 18 143/94 H 100 02/12/17 18:20 02/12/17 18:20 02/12/17 18:20 02/12/17 18:20 02/12/17 18:20 Interpretation: Normal - General General appearance: Anxious In distress: None - HEENT Head: Normocephalic, Atraumatic Eyes: Normal Extraocular movements intact: Yes Eyelashes: Normal Pupils: PERRL Pharynx: Normal Neck: Normal - Respiratory Respiratory status: No respiratory distress Chest status: Nontender Breath sounds: Normal. No: Wheezing Chest palpation: Normal - Cardiovascular Rhythm: Regular. No: Tachycardia Heart sounds: Normal auscultation, S1 appreciated, S2 appreciated Murmur: No - Abdominal Inspection: Normal Distension: No distension Bowel sounds: Normal Tenderness: Tender - soft abdomen throughout except for minimal left lower abdominal pain which is general and without guarding Organomegaly: No organomegaly - Genitourinary External exam: Normal Speculum exam: Other - could not visualize cervix well and very limited exam with a speculum due to persistent large amount of vaginal bleeding - some clots noted with active vaginal bleeding as well Vaginal bleeding: Heavy - Back Back: Normal. No: Tender - Extremities General upper extremity: Normal inspection, Nontender, Normal color, Normal ROM , Normal temperature General lower extremity: Normal inspection, Nontender, Normal color, Normal ROM , Normal temperature, Normal weight bearing. No: Matilde's sign - Neurological Neuro grossly intact: Yes Cognition: Normal Orientation: AAOx4 Sharif Coma Scale Eye Opening: Spontaneous [place]ide Coma Scale Verbal: Oriented Bromide Coma Scale Motor: Obeys Commands Sharif Coma Scale Total: 15 Speech: Normal Motor strength normal: LUE, RUE, LLE, RLE Sensory: Normal - Psychological Associated symptoms: Anxious - Skin Skin Temperature: Warm Skin Moisture: Dry Skin Color: Normal Course - Re-evaluation Re-evalutation: On examination patient is anxious but she is not tachycardic, hypotensive, or in distress. Patient with a nontender abdomen except for very mild nonspecific tenderness in the general left lower abdomen which patient reports is not new. On examination patient does have a large amount of active bleeding noted. Patient discussed with Dr. Tao. 02/12/17 19:40 Called and spoke with Dr. Bray, QUALITY ASSURANCE DIRECTOR wireless construction manager, discussed patient's history, vital signs, workup, examination. Dr. Bray recommended both IM 0.2 mg dose of Methergine and a by mouth dose now. Discussed monitoring of patient, discussed plan to follow-up in the office in the next couple of days while taking Methergine at home. Patient was monitored for about 3 hours after initial assessments and treatments , patient did not become hypotensive, remained well appearing, I did recheck and found patient had almost completely stopped bleeding. After patient had stopped bleeding, discussed treatment with Methergine, follow-up, return precautions in detail with patient and . State understanding and agreement. - Vital Signs Vital signs: Temp Pulse Resp BP Pulse Ox 98.6 F 79 15 129/81 H 97 02/12/17 18:20 02/12/17 18:20 02/12/17 22:01 02/12/17 22:01 02/12/17 22:01 - Laboratory Result Diagrams: 02/12/17 18:35 02/12/17 18:35 Laboratory results interpreted by me: 02/12/17 02/12/17 02/12/17 18:35 18:35 18:35 RBC 3.49 L Hgb 10.0 L Hct 29.7 L PT 16.2 H Total Protein 5.9 L Discharge - Discharge Clinical Impression: Excessive bleeding after vaginal delivery Condition: Stable Disposition: HOME, SELF-CARE Additional Instructions: I have spoken with Dr. Bray, with QUALITY ASSURANCE DIRECTOR with [facility]. Take the medication to treat the bleeding as prescribed. Avoid any significant physical activity including jumping, lifting, sexual intercourse until cleared to do so by QUALITY ASSURANCE DIRECTOR. Follow-up in the office in about 2 days for a reevaluation by QUALITY ASSURANCE DIRECTOR. Return immediately if you develop any concerning or worsening symptoms including returned heavy bleeding, dizziness, fever, severe pain, etc. Prescriptions: Methylergonovine Maleate [Methergine] 0.2 mg PO Q6H #8 tablet Referrals: APRYL WONG MD [Primary Care Provider] - 02/14/17
[2017-02-12] MEDS ORDERED: METHYLERGONOVINE MALEATE INJ/PF 0.2 MG/1 ML AMPULE IM ONE (19:42)
[2017-02-12] MEDS ORDERED: METHYLERGONOVINE MALEATE 0.2 MG TABLET PO ONE (19:43)
[2017-02-12 22:13] VITALS: BP 129/81
== END 2017-02-12 22:30 | disposition home or self-care (01) ==
LOC: ER 18:15
DX: N93.9 Abnormal uterine and vaginal bleeding, unspecified (principal)
CPT/HCPCS: 99284; 96372; 86900; 86901; 36415; 86850; 85025; 85610; 80053; J2210; J3490

== ENCOUNTER 2017-09-03 19:10 | Outpatient (CLI) | payer MEDICAID ==
[2017-09-03 19:39] LABS: APPEARANCE,URINE CLEAR; BILIRUBIN,URINE NEGATIVE (NEGATIVE); GLUCOSE, URINE NEGATIVE (NEGATIVE); KETONES,URINE NEGATIVE (NEGATIVE); LEUKOCYTE ESTERASE,URINE MODERATE (NEGATIVE); NITRITE,URINE NEGATIVE (NEGATIVE); PROTEIN,URINE NEGATIVE (NEGATIVE); URINE SPECIFIC GRAVITY 1.005; UROBILINOGEN,URINE NEGATIVE mg/dL (<2.0)
[2017-09-03] MEDS ORDERED: LIDOCAINE 1% INJ-PF (10 MG/ML) 30 ML SDV INJ ONE (20:09)
[2017-09-03] MEDS ORDERED: CEFTRIAXONE INJ 1000 MG VIAL IM ONE (20:09)
[2017-09-03] MEDS ORDERED: LIDOCAINE 1% INJ-PF (10 MG/ML) 30 ML SDV ONE (20:15)
[2017-09-03] MEDS ORDERED: CEFTRIAXONE INJ 1000 MG VIAL ONE (20:15)
--- NOTE | 2017-09-03 20:26 | RADIOLOGY REPORT (SQ) ---
EXAM DESCRIPTION: U/S OB LIMITED COMPLETED DATE/TIME: 09/03/2017 7:56 pm REASON FOR STUDY: cervical length pre term labor COMPARISON: None. TECHNIQUE: Limited transabdominal and transvaginal grayscale ultrasound for evaluation of specific r equested obstetrical parameters. LIMITATIONS: None. FINDINGS: CERVICAL LENGTH: 2.4 cm Closed. OTHER: heart rate of baby A is 149 and baby B 157 beats per Min IMPRESSION: LIMITED OBSTETRICAL ULTRASOUND WITH MEASURED PARAMETERS DELINEATED ABOVE. Trimester of : Second trimester - 13 weeks 1 day to 27 weeks 6 days. TECHNICAL DOCUMENTATION: JOB ID: [id number] [employer]- All Rights Reserved
== END 2017-09-03 20:44 | disposition home or self-care (01) ==
LOC: LC 19:10
PROVIDERS: ATTEND Obstetrics & Gynecology
DX: O47.02 False labor before 37 completed weeks of gestation, second trimester (principal); Z3A.20 20 weeks gestation of pregnancy
CPT/HCPCS: 81001; 76815; J3490; J0696

== ENCOUNTER 2017-11-07 14:17 | Outpatient (CLI) | payer MEDICAID ==
[2017-11-07 15:01] LABS: APPEARANCE,URINE CLOUDY; BILIRUBIN,URINE NEGATIVE (NEGATIVE); COLOR,URINE YELLOW; GLUCOSE, URINE NEGATIVE (NEGATIVE); KETONES,URINE TRACE mg/dL (NEGATIVE); LEUKOCYTE ESTERASE,URINE LARGE (NEGATIVE); NITRITE,URINE NEGATIVE (NEGATIVE); PROTEIN,URINE NEGATIVE (NEGATIVE); URINE SPECIFIC GRAVITY 1.015
[2017-11-07 15:19] LABS: URINE AMPHETAMINES SCREEN NEGATIVE; URINE BARBITURATES SCREEN NEGATIVE; URINE BENZODIAZEPINES SCREEN NEGATIVE; URINE COCAINE SCREEN NEGATIVE; URINE MARIJUANA (THC) SCREEN NEGATIVE; URINE METHADONE SCREEN NEGATIVE; URINE PHENCYCLIDINE SCREEN NEGATIVE
[2017-11-07 15:23] LABS: UR PRO/CREAT RATIO RESULT 0.1 mg/mg (0.0-0.2); URINE PROTEIN 8.6 mg/dL (<12)
[2017-11-07 16:16] LABS: ABSOLUTE LYMPHOCYTES (AUTO) 1.3 10^3/uL (0.5-4.7); ABSOLUTE MONOCYTES (AUTO) 0.4 10^3/uL (0.1-1.4); ABSOLUTE NEUT (AUTO) 2.4 10^3/uL (1.7-8.2); BASOPHILS % (AUTO) 0.6 % (0-2); EOSINOPHILS % (AUTO) 0.8 % (0-6); HEMATOCRIT 36.8 % (36.0-47.0); HEMOGLOBIN 12.2 g/dL (12.0-15.5); LYMPHOCYTES % (AUTO) 32.4 % (13-45); MEAN CORPUSCULAR HEMOGLOBIN 26.8 pg (27.0-33.4); MEAN CORPUSCULAR HGB CONC 33.2 g/dL (32.0-36.0); MEAN CORPUSCULAR VOLUME 81 fl (80-97); MONOCYTES % (AUTO) 9.1 % (3-13); PLATELET COUNT 174 10^3/uL (150-450); RED BLOOD COUNT 4.56 10^6/uL (3.72-5.28); SEGMENTED NEUTROPHILS % (AUTO) 57.1 % (42-78); TOTAL CELLS COUNTED % (AUTO) 100 %; WHITE BLOOD COUNT 4.2 10^3/uL (4.0-10.5)
[2017-11-07 16:33] LABS: ALANINE AMINOTRANSFERASE 24 U/L (9-52); ALBUMIN 2.9 g/dL (3.5-5.0); ALKALINE PHOSPHATASE 184 U/L (38-126); ANION GAP 10 (5-19); ASPARTATE AMINO TRANSFERASE 19 U/L (14-36); BILIRUBIN,DIRECT 0.2 mg/dL (0.0-0.4); BILIRUBIN,TOTAL 0.3 mg/dL (0.2-1.3); BLOOD UREA NITROGEN 8 mg/dL (7-20); CALCIUM 9.1 mg/dL (8.4-10.2); CARBON DIOXIDE 19 mmol/L (22-30); CHLORIDE 108 mmol/L (98-107); GLUCOSE 94 mg/dL (75-110); LDH 389 U/L (313-618); POTASSIUM 4.1 mmol/L (3.6-5.0); SODIUM 136.8 mmol/L (137-145); TOTAL PROTEIN 5.2 g/dL (6.3-8.2); URIC ACID 5.9 mg/dL (2.5-7.0)
== END 2017-11-07 16:54 | disposition home or self-care (01) ==
LOC: LC 14:17
PROVIDERS: ATTEND Student in an Organized Health Care Education/Training Program
PROC: 4A1HXCZ Monitoring of Products of Conception, Cardiac Rate, External Approach (ICD-10-PCS; principal; 2017-11-07)
DX: O13.3 Gestational [pregnancy-induced] hypertension without significant proteinuria, third trimester (principal); Z3A.31 31 weeks gestation of pregnancy
CPT/HCPCS: 36415; 80053; 80307; 81001; 82570; 83615; 84156; 84550; 85025; 87086

== ENCOUNTER 2017-11-09 17:22 | Outpatient (CLI) | payer MEDICAID ==
[2017-11-09 18:41] LABS: APPEARANCE,URINE SLIGHTLY-CLOUDY; BILIRUBIN,URINE NEGATIVE (NEGATIVE); COLOR,URINE YELLOW; GLUCOSE, URINE NEGATIVE (NEGATIVE); KETONES,URINE NEGATIVE (NEGATIVE); LEUKOCYTE ESTERASE,URINE MODERATE (NEGATIVE); NITRITE,URINE NEGATIVE (NEGATIVE); PROTEIN,URINE NEGATIVE (NEGATIVE); UROBILINOGEN,URINE NEGATIVE mg/dL (<2.0)
[2017-11-09] MEDS ORDERED: ACETAMINOPHEN 325 MG TABLET PO ONE (18:48)
[2017-11-09] MEDS ORDERED: PROCHLORPERAZINE MALEATE 10 MG TABLET PO ONE (18:48)
[2017-11-09] MEDS ORDERED: PROCHLORPERAZINE MALEATE 10 MG TABLET ONE (18:50)
[2017-11-09] MEDS ORDERED: ACETAMINOPHEN 325 MG TABLET ONE (18:51)
[2017-11-09 18:52] LABS: URINE AMPHETAMINES SCREEN NEGATIVE; URINE BARBITURATES SCREEN NEGATIVE; URINE BENZODIAZEPINES SCREEN NEGATIVE; URINE COCAINE SCREEN NEGATIVE; URINE MARIJUANA (THC) SCREEN NEGATIVE; URINE METHADONE SCREEN NEGATIVE; URINE PHENCYCLIDINE SCREEN NEGATIVE
== END 2017-11-09 20:35 | disposition home or self-care (01) ==
LOC: LC 17:22
PROVIDERS: ATTEND Obstetrics & Gynecology
PROC: 4A1HXCZ Monitoring of Products of Conception, Cardiac Rate, External Approach (ICD-10-PCS; principal; 2017-11-09)
DX: O47.1 False labor at or after 37 completed weeks of gestation (principal); O09.523 Supervision of elderly multigravida, third trimester; Z3A.32 32 weeks gestation of pregnancy
CPT/HCPCS: 59025; 81001; 80307; J3490; S0183

== ENCOUNTER 2017-11-19 15:26 | Inpatient (IN) | payer MEDICAID ==
[~2017-11-19 15:26] MED LIST: DEXAMETHASONE SOD PHOSPHATE INJ 4 MG/1 ML VIAL ONE; KETOROLAC TROMETHAMINE 60 MG/2 ML SDV ONE; METOCLOPRAMIDE HCL INJ/PF 10 MG/2 ML SDV ONE; ONDANSETRON HCL INJ/PF 4 MG/2 ML SDV ONE; PHENYLEPHRINE HCL INJ/PF 10 MG/1 ML SDV ONE
[2017-11-19] MEDS ORDERED: RINGERS SOLUTION,LACTATED 1,000 ML IV ONE (15:46)
--- NOTE | 2017-11-19 15:49 | Non Stress Test Report ---
Non Stress Test Datetime Report Generated by CPN: 11/19/2017 15:49 DEMOGRAPHIC EGA NST: 32.0 INDICATION Indication for Study: Ordered by Provider URINE RESULTS Urine Protein, NST: Negative Urine Ketones - NST: Negative Urine Glucose - NST: Negative Urine Blood - NST: Negative MONITORING Monitor Explained: Monitor Explained; Test Explained; Patient Verbalized Understanding Time on Monitor: 11/09/2017 17:40 Time off Monitor: 11/09/2017 20:24 NST Duration: 164 NST INTERVENTIONS NST Interventions: PO Hydration; Reposition Patient Physician Notified NST: Dr. Adam BABY A: [id number] BABY A Movement : Present Contraction Frequency : Rare FHR Baseline : 145 Accelerations : 15X15 Decelerations : None Variability : Moderate 6-25bpm NST Review: Meets Criteria for Reactive NST NST Review and Verified By : nenita BRAGG Results: Reactive BABY B Movement: Present FHR Baseline: 140 Accelerations: 15X15 Decelerations: None Variability: Moderate 6-25bpm NST Review: Meets Criteria for Reactive NST NST Reviewed And Verified By: nenita BRAGG Results: Reactive NST REPORT Report Trigger: Send Report
[2017-11-19] MEDS ORDERED: BETAMET ACET/BETAMET NA INJ 6 MG/1 ML IM SCH (16:00)
[2017-11-19 16:04] LABS: APPEARANCE,URINE CLOUDY; BILIRUBIN,URINE NEGATIVE (NEGATIVE); GLUCOSE, URINE NEGATIVE (NEGATIVE); KETONES,URINE 80 mg/dL (NEGATIVE); LEUKOCYTE ESTERASE,URINE TRACE (NEGATIVE); NITRITE,URINE NEGATIVE (NEGATIVE); PROTEIN,URINE 30 mg/dL (NEGATIVE); URINE SPECIFIC GRAVITY 1.034
[2017-11-19 16:05] LABS: COLOR,URINE DARK YELLOW
[2017-11-19 16:18] LABS: URINE AMPHETAMINES SCREEN NEGATIVE; URINE BARBITURATES SCREEN NEGATIVE; URINE BENZODIAZEPINES SCREEN NEGATIVE; URINE COCAINE SCREEN NEGATIVE; URINE MARIJUANA (THC) SCREEN NEGATIVE; URINE METHADONE SCREEN NEGATIVE; URINE PHENCYCLIDINE SCREEN NEGATIVE
[2017-11-19] MEDS ORDERED: BETAMET ACET/BETAMET NA INJ 6 MG/1 ML ONE (16:57)
[2017-11-19 17:07] LABS: HEMATOCRIT 35.8 % (36.0-47.0); HEMOGLOBIN 11.9 g/dL (12.0-15.5); MEAN CORPUSCULAR HEMOGLOBIN 26.9 pg (27.0-33.4); MEAN CORPUSCULAR HGB CONC 33.2 g/dL (32.0-36.0); MEAN CORPUSCULAR VOLUME 81 fl (80-97); PLATELET COUNT 157 10^3/uL (150-450); RED BLOOD COUNT 4.42 10^6/uL (3.72-5.28); RED CELL DISTRIBUTION WIDTH 16.9 % (11.5-14.0)
[2017-11-19] MEDS ORDERED: BUTALB/ACETAMINOPHEN/CAFFEINE 1 TAB EACH ONE ×2 (17:52→17:55)
[2017-11-19] MEDS ORDERED: BUTALB/ACETAMINOPHEN/CAFFEINE 1 TAB EACH PO ONE (18:00)
[2017-11-19] MEDS ORDERED: HYDRALAZINE HCL INJ/PF 20 MG/1 ML SDV ONE ×2 (19:26→23:29)
[2017-11-19] MEDS ORDERED: CITRIC ACID/SODIUM CITRATE ORAL SOLN 15 ML UDCUP ONE (19:26)
[2017-11-19] MEDS ORDERED: CEFAZOLIN 2 GM/D5W RTU 2 GM/50 ML RTUPB IV ONE (19:27)
[2017-11-19 19:48] LABS: ALANINE AMINOTRANSFERASE 40 U/L (9-52); ALBUMIN 2.7 g/dL (3.5-5.0); ALKALINE PHOSPHATASE 182 U/L (38-126); ANION GAP 6 (5-19); ASPARTATE AMINO TRANSFERASE 33 U/L (14-36); BILIRUBIN,DIRECT 0.2 mg/dL (0.0-0.4); BILIRUBIN,TOTAL 0.2 mg/dL (0.2-1.3); BLOOD UREA NITROGEN 10 mg/dL (7-20); CALCIUM 9.2 mg/dL (8.4-10.2); CARBON DIOXIDE 23 mmol/L (22-30); CHLORIDE 110 mmol/L (98-107); GLUCOSE 112 mg/dL (75-110); LDH 436 U/L (313-618); POTASSIUM 3.9 mmol/L (3.6-5.0); SODIUM 139.4 mmol/L (137-145); TOTAL PROTEIN 5.1 g/dL (6.3-8.2); URIC ACID 5.5 mg/dL (2.5-7.0)
[2017-11-19] MEDS ORDERED: CARBOPROST TROMETHAMINE INJ 250 MCG/1 ML AMPULE ONE (20:02)
[2017-11-19] MEDS ORDERED: OXYTOCIN 10 UNIT/ML VIAL ONE ×2 (20:02→20:59)
[2017-11-19] MEDS ORDERED: LOPERAMIDE HCL 2 MG CAPSULE ONE (20:02)
[2017-11-19] MEDS ORDERED: MISOPROSTOL 0.2 MG TABLET ONE (20:02)
[2017-11-19 20:03] LABS: ABSOLUTE LYMPHOCYTES# (MANUAL) 1.2 10^3/uL (0.5-4.7); ABSOLUTE MONOCYTES # (MANUAL) 0.3 10^3/uL (0.1-1.4); ABSOLUTE NEUTROPHILS# (MANUAL) 5.5 10^3/uL (1.7-8.2); BASOPHILS % (MANUAL) 0 % (0-2); EOSINOPHILS % (MANUAL) 1 % (0-6); LYMPHOCYTES % (MANUAL) 17 % (13-45); MONOCYTES % (MANUAL) 4 % (3-13); SEGMENTED NEUTROPHILS % (MAN) 78 % (42-78); TOTAL CELLS COUNTED 100; TOXIC VACUOLATION PRESENT
[2017-11-19 20:04] LABS: ANISOCYTOSIS 1+; OVALOCYTES SLIGHT; PLATELET COMMENT ADEQUATE; PLATELET GIANT PRESENT; PLATELET LARGE PRESENT; POIKILOCYTOSIS SLIGHT
[2017-11-19] MEDS ORDERED: KETAMINE HCL INJ 500 MG/10 ML VIAL ONE (20:59)
[2017-11-19] MEDS ORDERED: EPHEDRINE SULFATE INJ 50 MG/1 ML AMPULE ONE (20:59)
[2017-11-19] MEDS ORDERED: FENTANYL CITRATE INJ/PF 100 MCG/2 ML AMPUL ONE ×2 (20:59→23:08)
[2017-11-19] MEDS ORDERED: OXYTOCIN/NORMAL SALINE 20 UNIT/1,000 ML RTUINJ ONE (20:59)
[2017-11-19] MEDS ORDERED: MIDAZOLAM 2 MG/2 ML INJ ONE (21:00)
[2017-11-19] MEDS ORDERED: FENTANYL CITRATE INJ/PF 100 MCG/2 ML AMPUL IV PRN ×3 (21:38)
[2017-11-19] MEDS ORDERED: ONDANSETRON HCL INJ/PF 4 MG/2 ML SDV IV PRN (21:38)
[2017-11-19] MEDS ORDERED: MORPHINE SULFATE 10 MG/ML INJ IV PRN (21:38)
[2017-11-19] MEDS ORDERED: PROMETHAZINE HCL INJ 25 MG/1 ML VIAL IV PRN ×2 (21:38)
[2017-11-19] MEDS ORDERED: DIPHENHYDRAMINE HCL 50 MG/ML VIAL IV PRN (21:38)
[2017-11-19] MEDS ORDERED: MEPERIDINE HCL/PF INJ 25 MG/1 ML DISP.SYRIN IV PRN (21:38)
[2017-11-19] MEDS ORDERED: ACETAMINOPHEN 100 ML IV ONE (22:03)
--- NOTE | 2017-11-19 23:39 | OPERATIVE REPORT E ---
Operative Report NAME: JESSIE SELF : 1975 AGE: 42Y DATE OF SURGERY: 11/19/2017 ROOM: LR200 PREOPERATIVE DIAGNOSES: 1. INTRAUTERINE AT 33 WEEKS WITH MONOCHORIONIC-DIAMNIOTIC TWINS. 2. GESTATIONAL HYPERTENSION. 3. UNDESIRED FERTILITY. 4. NONREASSURING HEART TONES OF TWIN A. POSTOPERATIVE DIAGNOSES: 1. INTRAUTERINE AT 33 WEEKS WITH MONOCHORIONIC-DIAMNIOTIC TWINS. 2. GESTATIONAL HYPERTENSION. 3. UNDESIRED FERTILITY. 4. NONREASSURING HEART TONES OF TWIN A. OPERATION: LOW TRANSVERSE HYSTEROTOMY AND SECTION, REPEAT, WITH [place] TUBAL LIGATION. SURGEON: NIKOLAY EATON M.D. ANESTHESIA: Dr. Babb with a spinal. TISSUE REMOVED OR ALTERED: Placenta and feeding tube x2. FINDINGS: Baby A male infant, cephalic presentation with Apgars of 5 and 8. Weight 1820 grams. Baby B male infant in cephalic presentation with Apgars of 8 and 9. Weight 2382 grams. Normal tubes and ovaries. COMPLICATIONS: None. ESTIMATED BLOOD LOSS: 600 mL. PROCEDURE IN DETAIL: The patient was taken to the operating room and prepared and draped in a normal sterile fashion in the supine position with a leftward tilt. A transverse skin incision was made with a scalpel and carried through to the underlying layer of fascia with the same scalpel. The fascia was excised in the midline and extended laterally. The rectus muscle and peritoneum were divided with good visualization of the bladder and the uterus. The bladder blade was inserted and the hysterotomy was nicked with a scalpel and extended laterally with surgeon finger fracture. Infant A was then delivered atraumatically. The nose and mouth were suctioned with a suction bulb and the cord was clamped and cut and the infant was handed off to the awaiting pediatricians. Cord blood was collected from this umbilical cord and it was marked with an umbilical clamp. Baby B was then delivered atraumatically. The nose and mouth were suctioned with a suction bulb and the cord was clamped and cut and handed off to waiting pediatricians. This cord blood was collected as well and the umbilical cord was marked with a Tiffani clamp. The placenta was then removed manually. The uterus was exteriorized and cleared of clots and debris. The hysterotomy was closed with 0 Monocryl in a running-locked fashion and a second layer of the same suture was used to imbricate to ensure hemostasis. Attention was then turned to the patient's undesired fertility where her right fallopian tube was grasped with a [place] and the mesosalpinx was divided with the Bovie. A large segment of the fallopian tube was then tied off with 2 pieces of 2-0 chromic and the intermediate segment was then removed with Metzenbaums. Good hemostasis was obtained with the Bovie. This procedure was repeated on the patient's left without any difficulty. The uterus was then returned to the abdomen and the pedicles were reinspected and found to be hemostatic and intact. The rectus muscle and peritoneum were then reapproximated with a mattress stitch of 2-0 Chromic. The fascia was closed with 0 Vicryl. The subcutaneous layer was closed with plain catgut and the skin was closed with 4-0 Monocryl. Patient tolerated the procedure well. Sponge, lap, and needle counts were correct x2. Patient was taken to recovery in stable condition. DICTATING PHYSICIAN: NIKOLAY EATON M.D. [id number] PHY#: [id number] ID: [id number] JOB#: [id number] ACCT: [id number] cc:NIKOLAY EATON M.D. >
[2017-11-20] MEDS ORDERED: MORPHINE SULFATE 10 MG/ML INJ ONE (00:01)
[2017-11-20] MEDS ORDERED: MAGNESIUM SULFATE 4 GM/100 ML RTUPB IV ONE ×2 (00:26→00:38)
[2017-11-20] MEDS: MAGNESIUM SULFATE 20 GM/500 ML RTUINJ IV PRN ×2 (01:27→11:00)
[2017-11-20] MEDS ORDERED: ACETAMINOPHEN 100 ML IV PRN (01:40)
[2017-11-20] MEDS ORDERED: MORPHINE SULFATE 10 MG/ML INJ IV PRN (01:40)
[2017-11-20] MEDS ORDERED: MEASLES,MUMPS&RUBELLA VACC/PF 0.5 ML VIAL SUBCUT PRN (01:40)
[2017-11-20] MEDS ORDERED: ACETAMINOPHEN 325 MG TABLET PO PRN (01:40)
[2017-11-20] MEDS ORDERED: PROMETHAZINE HCL INJ 25 MG/1 ML VIAL IV PRN (01:40)
[2017-11-20] MEDS ORDERED: DIPH/PERTUSS(ACELL)/TETANUS VAC/PF 0.5 ML SYR (>=10YO) IM PRN (01:40)
[2017-11-20] MEDS ORDERED: SIMETHICONE 80 MG TAB.CHEW PO PRN (01:40)
[2017-11-20] MEDS ORDERED: OXYTOCIN/NORMAL SALINE 20 UNIT/1,000 ML RTUINJ IV PRN (01:40)
[2017-11-20] MEDS ORDERED: HYDRALAZINE HCL INJ/PF 20 MG/1 ML SDV IV ONE ×2 (01:45→23:28)
[2017-11-20] MEDS ORDERED: HYDRALAZINE HCL INJ/PF 20 MG/1 ML SDV ONE (01:46)
[2017-11-20] MEDS ORDERED: OXYCODONE-ACETAMINOPHEN 5-325 MG TABLET ONE ×2 (01:59→09:50)
[2017-11-20] MEDS ORDERED: IBUPROFEN 800 MG TABLET ONE (05:57)
[2017-11-20] MEDS ORDERED: KETOROLAC TROMETHAMINE INJ/PF 30 MG/1 ML SDV ONE ×2 (05:57→13:56)
[2017-11-20] MEDS ORDERED: CEFAZOLIN 1 GM/D5W RTU 1 GM/50 ML RTUPB IV SCH (06:00)
[2017-11-20] MEDS ORDERED: IBUPROFEN 800 MG TABLET PO SCH (06:00)
[2017-11-20] MEDS: KETOROLAC TROMETHAMINE INJ/PF 30 MG/1 ML SDV IV SCH ×2 (06:01→14:10)
[2017-11-20] MEDS ORDERED: SIMETHICONE 80 MG TAB.CHEW ONE (06:11)
[2017-11-20 08:34] LABS: ABSOLUTE MONOCYTES (AUTO) 0.8 10^3/uL (0.1-1.4); ABSOLUTE NEUT (AUTO) 10.7 10^3/uL (1.7-8.2); BASOPHILS % (AUTO) 0.1 % (0-2); HEMATOCRIT 34.8 % (36.0-47.0); HEMOGLOBIN 11.6 g/dL (12.0-15.5); LYMPHOCYTES % (AUTO) 14.5 % (13-45); MEAN CORPUSCULAR HEMOGLOBIN 26.6 pg (27.0-33.4); MEAN CORPUSCULAR HGB CONC 33.3 g/dL (32.0-36.0); MEAN CORPUSCULAR VOLUME 80 fl (80-97); MONOCYTES % (AUTO) 6.1 % (3-13); PLATELET COUNT 190 10^3/uL (150-450); RED BLOOD COUNT 4.35 10^6/uL (3.72-5.28); RED CELL DISTRIBUTION WIDTH 16.9 % (11.5-14.0); SEGMENTED NEUTROPHILS % (AUTO) 79.3 % (42-78); TOTAL CELLS COUNTED % (AUTO) 100 %; WHITE BLOOD COUNT 13.5 10^3/uL (4.0-10.5)
[2017-11-20 08:55] LABS: ALANINE AMINOTRANSFERASE 36 U/L (9-52); ALBUMIN 2.6 g/dL (3.5-5.0); ALKALINE PHOSPHATASE 181 U/L (38-126); ASPARTATE AMINO TRANSFERASE 27 U/L (14-36); BLOOD UREA NITROGEN 9 mg/dL (7-20); CALCIUM 8.9 mg/dL (8.4-10.2); GLUCOSE 81 mg/dL (75-110); TOTAL PROTEIN 4.9 g/dL (6.3-8.2)
[2017-11-20 09:10] LABS: ANION GAP 6 (5-19); CARBON DIOXIDE 20 mmol/L (22-30); CHLORIDE 108 mmol/L (98-107); POTASSIUM 4.8 mmol/L (3.6-5.0); SODIUM 134.4 mmol/L (137-145)
[2017-11-20 09:14] LABS: BILIRUBIN,TOTAL < 0.1 mg/dL (0.2-1.3)
[2017-11-20] MEDS ORDERED: PRENATAL VITAMIN W DHA CAPSULE PO ONE (09:49)
[2017-11-20] MEDS ORDERED: DOCUSATE SODIUM 100 MG CAPSULE ONE (09:49)
[2017-11-20] MEDS: DOCUSATE SODIUM 100 MG CAPSULE PO SCH ×2 (09:52→17:23)
[2017-11-20] MEDS: PRENATAL VITAMIN W DHA CAPSULE PO SCH (09:52)
[2017-11-20] MEDS: OXYCODONE-ACETAMINOPHEN 5-325 MG TABLET PO PRN ×2 (09:53→22:09)
[2017-11-20] MEDS ORDERED: MAGNESIUM SULFATE 20 GM/500 ML RTUINJ IV PRN (11:49)
--- NOTE | 2017-11-20 11:57 | Warning Signs in Babies ---
VOD Warning Signs Datetime Report Generated by [facility]: 11/20/2017 11:57 VOD#608 -Warning Signs in Babies: Viewed with Parent(s)/Family (08/30/2017 13:07:JERARDO Abdul)
--- NOTE | 2017-11-20 13:13 | Delivery Summary ---
Del Sum A-C Datetime Report Generated by CPN: 11/20/2017 13:12 DELIVERY PERSONNEL DELIVERY PERSONNEL: [id number] Delivery Doctor:: Estrella Medina MD Anesthesiologist:: Wai Babb MD CONFIDENTIAL INVESTIGATOR:: Génesis Burns CRNA Labor and Delivery Nurse:: Lamar Solares RN Labor and Delivery Nurse:: Kym Angeles RN Crystallographer:: Dr. Lamont Herron Nurse Practitioner:: KHUSHBOO Valentino Nursery Nurse:: Sheree Muñoz RN MSN Nursery Nurse:: Krystin Hinojosa RN Porcelain Slusher/SLUG PRESS OPERATOR: Yolanda Vu CST Porcelain Slusher/SLUG PRESS OPERATOR: Starla Arteaga, ST MATERNAL INFORMATION Delivery Anesthesia: Spinal (Annotations: Data stored by [facility] on behalf of user) Medications After Delivery: Pitocin Drip 20 Units/1000ml NSS Estimated Blood Loss (ml): 600 Maternal Complications: Other Other Maternal Complications: hypertension LABOR SUMMARY EDC: 01/04/2018 00:00 No. Babies in Womb: 2 Attempted: No Labor Anesthesia: None LABOR INFORMATION Reason for Induction: Not Applicable Oxytocin: N/A Group B Beta Strep: negative Steroids Given: Partial Course Reason Steroids Not Administered: Not Applicable MEMBRANES Membranes Rupture Method: Artificial Rupture of Membranes: 11/19/2017 21:17 Length of Rupture (hr): 0.00 Amniotic Fluid Color: Clear Amniotic Fluid Amount: Moderate Amniotic Fluid Odor: Normal STAGES OF LABOR Stage 3 hr: 0 Stage 3 min: 3 VAGINAL DELIVERY Episiotomy: None Laceration #1: None Laceration Extension #1: N/A Laceration Repair: Not Applicable Sponge Count Correct: N/A Sharps Count Correct: N/A CSECTION DELIVERY Primary Indication: Nonreassuring Status CSection Urgency: Non-Scheduled CSection Incidence: Repeat Labor: N/A Elective: N/A CSection Incision: Lower Uterine Transverse Sterilization Procedure: [place] BABY A INFORMATION Delivery Date/Time: 11/19/2017 21:17 Method of Delivery: Born in Route : No : N/A Forceps: N/A Vacuum Extraction: N/A Shoulder Dystocia : No PRESENTATION/POSITION BABY A Presentation: Cephalic Cephalic Presentation: Vertex Breech Presentation: N/A PLACENTA INFORMATION BABY A Placenta Delivery Time : 11/19/2017 21:20 Placenta Method of Delivery: Manual Removal Placenta Status: Delivered SCORES BABY A Heart Rate 1 min: >100 bpm Resp Effort 1 min: Absent Reflex Irritability 1 min: Cough or Sneeze or Pulls Away Muscle Tone 1 min: Some Flexion of Extremities Color 1 min: Blue/Pale SCORE 1 MIN: 5 Heart Rate 5 min: >100 bpm Resp Effort 5 min: Good Cry Reflex Irritability 5 min: Cough or Sneeze or Pulls Away Muscle Tone 5 min: Active Motion Color 5 min: Blue/Pale SCORE 5 MIN: 8 INFANT INFORMATION BABY A Gestational Age at Delivery: 33.3 Gestational Status: - <34 Weeks Infant Outcome : Liveborn Condition : Stable Sex: Male IDENTIFICATION BABY A Infant Verification Date/Time: 11/19/2017 22:10 ID Band Number: [id number] Mother's Name Verified: Yes Infant RN Verifying Infant: SShasta Whitt, RN _ MalcomShasta Nancy Solares, TANNA WEIGHT/LENGTH BABY A Birthweight (gm): 1820 Weight (lb): 4 Weight (oz): 0 Infant Length (in): 16.50 Length (cm): 41.91 CORD INFORMATION BABY A No. Cord Vessels: 3 Nuchal Cord : N/A Cord Blood Taken: Yes-For Storage (Mom's Blood type +) ASSESSMENT BABY A Infant Complications: Multiple Late Decels; Other Complications- Other: prolonged decels Physical Findings at Delivery: Within Normal Limits Skin to Skin: No Crystallographer/ALS Called : Yes Infant Care By: Annette Muñoz RN Transferred To: NICU BABY B INFORMATION Infant Delivery Date/Time: 11/19/2017 21:19 Method of Delivery : Born in Route : No : N/A Forceps : N/A Vacuum Extraction: N/A Shoulder Dystocia : No SHOULDER DYSTOCIA BABY B Delivery Date/Time: 11/19/2017 21:19 PRESENTATION/POSITION BABY B Presentation : Cephalic Cephalic Position : Vertex Breech Position: N/A ROM/PLACENTA INFO BABY B Rupture of Membranes: 11/19/2017 21:19 Length of Rupture (hr): 0.00 Placenta Delivery Time : 11/19/2017 21:20 Placenta Method of Delivery: Manual Removal Placental Status : Delivered SCORES BABY B Heart Rate 1 min: >100 bpm Resp Effort 1 min: Good Cry Reflex Irritability 1 min: Cough or Sneeze or Pulls Away Muscle Tone 1 min: Active Motion Color 1 min: Blue/Pale Resuscitation Effort 1 min: Tactile Stimulation SCORE 1 MIN: 8 Heart Rate 5 min: >100 bpm Resp Effort 5 min: Good Cry Reflex Irritability 5 min: Cough or Sneeze or Pulls Away Muscle Tone 5 min: Active Motion Color 5 min: Body [place], Extremities Blue Resuscitation Effort 5 min: Tactile Stimulation SCORE 5 MIN: 9 INFORMATION BABY B Gestational Age at Delivery: 33.3 Gestational Status : - <34 Weeks Infant Outcome : Liveborn Infant Condition : Stable Sex : Male IDENTIFICATION BABY B Verification Date/Time: 11/19/2017 22:11 ID Band Number : [id number] Mother's Name Verified: Yes Infant RN Verifying Infant: Chris Whitt, TANNA Solares RN WEIGHT/LENGTH BABY B Infant Birthweight (gm): 2382 Infant Weight (lb) : 5 Infant Weight (oz): 4 Infant Length (in): 19.00 Infant Length (cm): 48.26 CORD INFORMATION BABY B No. Cord Vessels : 3 Nuchal Cord : N/A Cord Blood Taken : Yes-For Storage (Mom's Blood Type +) ASSESSMENT BABY B Complications : None Physical Findings at Delivery: Within Normal Limits Infant Respirations : Appears Normal Crystallographer/ALS Called : Yes Care By : Violet Hinojosa RN Transfer To: NICU
--- NOTE | 2017-11-20 13:31 | L&D Progress Notes ---
PROGRESS NOTES Datetime Report Generated by CPN: 11/20/2017 13:31 PROGRESS NOTE Impression Other: PreE, S/p R C/S Procedures- Other: stop magnesium Plan: Transfer Plan Other: transfer to PP Informed Consent Obtained: Section Delivery; Risks, Benefits and Alternatives Discussed Vital Signs : Reviewed Comment: Mild range BPs with adequate Diuresis. Pt has now been on magesium for approx 12 hours. REview of chart noted that pt still has cerclage that was placed in 08/2017. Reviewed with delivering provider and delivering provider had d/w pt that cerclage would be removed at 1wks PP appt. Offered to patient to remove today while on L_D prior to transfer. Pt declines and will remind provider at pp visit. Magnesium discontinued and will begin procardia. BPs mild range and pt asymptomatic. SIGNATURE SIGNATURE: ,[id number];,[id number];,[id number] SIGNATURE: ,[id number];,[id number];,[id number] SIGNATURE: ,[id number];,[id number] SIGNATURE: ,[id number] Signature: with User ID: [email or web address]
[2017-11-20] MEDS ORDERED: NIFEDIPINE 30 MG TAB.ER.24 PO ONE ×2 (13:56→14:00)
[2017-11-21] MEDS: OXYCODONE-ACETAMINOPHEN 5-325 MG TABLET PO PRN ×4 (05:03→23:53)
[2017-11-21] MEDS: DOCUSATE SODIUM 100 MG CAPSULE PO SCH ×2 (09:22→18:03)
[2017-11-21] MEDS: NIFEDIPINE 30 MG TAB.ER.24 PO SCH (09:22)
[2017-11-21] MEDS: PRENATAL VITAMIN W DHA CAPSULE PO SCH (09:22)
--- NOTE | 2017-11-21 09:22 | PDOC PROGRESS REPORT ---
Subjective Progress Note for:: 11/21/17 Subjective:: pt without complants Reason For Visit: Physical Exam - Physical Exam Vital Signs: Temp Pulse Resp BP Pulse Ox 97.7 F 65 17 163/89 H 99 11/21/17 08:21 11/21/17 08:21 11/21/17 08:21 11/21/17 08:21 11/21/17 08:21 Intake & Output 11/20/17 11/21/17 11/22/17 06:59 06:59 06:59 Intake Total 950 Output Total 550 Balance 400 Weight 124 kg General appearance: PRESENT: no acute distress GI/Abdominal exam: PRESENT: normal bowel sounds, soft Extremities exam: PRESENT: +1 edema Musculoskeletal exam: PRESENT: ambulatory Neurological exam: PRESENT: alert Additional comments: bandage intact small amt of dried blood visible Result Laboratory Results: 11/20/17 08:23 11/20/17 08:23 Assessment & Plan - Diagnosis (1) Grand multiparity Is this a current diagnosis for this admission?: Yes (2) History of uterine scar due to previous surgery Is this a current diagnosis for this admission?: Yes (3) Multiple gestation, delivered Is this a current diagnosis for this admission?: Yes - Time Time Spent with patient: 15-24 minutes Medications reviewed and adjusted accordingly: Yes Anticipated discharge: Home Within: within 24 hours - Plan Summary Plan Summary: bp elevated folow today and add meds if needed
[2017-11-22] MEDS: PRENATAL VITAMIN W DHA CAPSULE PO SCH (10:14)
[2017-11-22] MEDS: DOCUSATE SODIUM 100 MG CAPSULE PO SCH (10:14)
[2017-11-22] MEDS: NIFEDIPINE 30 MG TAB.ER.24 PO SCH (10:16)
--- NOTE | 2017-11-22 12:34 | PDOC DISCHARGE SUMMARY ---
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 Is this a current diagnosis for this admission?: Yes (4) Multiple gestation, delivered Is this a current diagnosis for this admission?: Yes (5) Pre-eclampsia Is this a current diagnosis for this admission?: Yes (6) Sterilization Is this a current diagnosis for this admission?: Yes Discharge Data - Discharge Medication Prescriptions: Oxycodone HCl/Acetaminophen [Percocet 5-325 mg Tablet] 2 tab PO Q4HP PRN #30 tablet PRN Reason: Docusate Sodium [Colace 100 mg Capsule] 100 mg PO BID #60 capsule Nifedipine [Procardia XL 30 mg Tablet] 60 mg PO DAILY #30 tab.er.24 Vit/Iron Fum/Folic AC [ Tablet] 1 tab PO DAILY #90 tablet Home Medications: Docusate Sodium [Colace 100 mg Capsule] 100 mg PO BID #60 capsule 11/22/17 Nifedipine [Procardia XL 30 mg Tablet] 60 mg PO DAILY #30 tab.er.24 11/22/17 Oxycodone HCl/Acetaminophen [Percocet 5-325 mg Tablet] 2 tab PO Q4HP PRN #30 tablet 11/22/17 Vit/Iron Fum/Folic AC [ Tablet] 1 tab PO DAILY #90 tablet 11/22 Gestational Age: 33.3 Reason(s) for Admission: PIH, Advanced Maternal Age, Twins, Other - nrfht twin a Procedures: NST Intrapartum Procedure(s): : Low Cervical, Transverse, Tubal Ligation - Data Baby 1 Male at 1 minute: 5 at 5 minutes: 8 Weight: 1820 kg Home with Mother: No Complications: Yes - Baby 2 Male at 1 minute: 8 at 5 minutes: 9 Weight: 2382 kg Home with Mother: No Complications: Yes - - Diagnosis Test Laboratory: Temp Pulse Resp BP Pulse Ox 97.3 F 77 17 151/94 H 98 11/22/17 07:37 11/22/17 07:37 11/22/17 07:37 11/22/17 07:37 11/22/17 07:37 11/19/17 11/19/17 11/19/17 15:45 16:54 16:54 RBC 4.42 Cancelled Hgb 11.9 L Cancelled Hct 35.8 L Cancelled Urine Opiates Screen NEGATIVE 11/20/17 08:23 RBC 4.35 Hgb 11.6 L Hct 34.8 L Urine Opiates Screen - Discharge information/Instructions Discharge Activity: Activity As Tolerated, No Lifting Over 10 Pounds, Pelvic Rest, No tub bath Discharge Diet: Regular Disposition: HOME, SELF-CARE Follow up with: [facility] in: 1, Days
[2017-11-22 14:51] VITALS: BP 141/81
--- NOTE | 2017-12-12 13:04 | PDOC H&P ---
History of Present Illness Admission Date/PCP: 11/19/17 19:18 NIKOLAY EATON MD History of Present Illness: JESSIE SELF is a 42 year old female Past Surgical History Past Surgical History: Reports: Section, Gastric Bypass Surgery Social History Smoking Status: Unknown if Ever Smoked Family History Family History: Reviewed & Not Pertinent Parental Family History Reviewed: No Children Family History Reviewed: No Sibling(s) Family History Reviewed.: No Medication/Allergy Home Medications: Docusate Sodium [Colace 100 mg Capsule] 100 mg PO BID #60 capsule 11/22/17 Vit/Iron Fum/Folic AC [ Tablet] 1 tab PO DAILY #90 tablet 11/22 Amlodipine Besylate [Norvasc 2.5 mg Tablet] 2.5 mg PO Q12 #60 tablet 11/26/17 Labetalol HCl [Normodyne 200 mg Tablet] 200 mg PO Q12@0800,2000 #60 tablet 11/26 Allergies/Adverse Reactions: No Known Allergies Allergy (Verified 11/24/17 06:37) Physical Exam - Physical Exam Vital Signs: Temp Pulse Resp BP Pulse Ox 97.3 F 77 17 141/81 H 98 11/22/17 14:27 11/22/17 14:27 11/22/17 14:27 11/22/17 14:27 11/22/17 14:27 Result Laboratory Results: 11/20/17 08:23 11/20/17 08:23 Assessment & Plan - Diagnosis (1) Advanced maternal age (AMA), 40 years or greater Is this a current diagnosis for this admission?: Yes (2) Discordant growth in twin gestation Qualifiers: Fetus number: fetus 1 of multiple gestation Trimester: third trimester Qualified Code(s): O30.003 - Twin , unspecified number of placenta and unspecified number of amniotic sacs, third trimester; O36.5931 - Maternal care for other known or suspected poor growth, third trimester, fetus 1; O36.5931 - Maternal care for other known or suspected poor growth, third trimester, fetus 1 Is this a current diagnosis for this admission?: Yes (3) Grand multiparity Is this a current diagnosis for this admission?: Yes (4) History of Is this a current diagnosis for this admission?: Yes (5) History of uterine scar due to previous surgery Is this a current diagnosis for this admission?: Yes (6) Non-reassuring electronic monitoring tracing Is this a current diagnosis for this admission?: Yes - Plan Summary Plan Summary: sent from [facility] for nonreassuring monitoring to be admitted for observation.
== END 2017-11-22 16:15 | disposition home or self-care (01) | DRG 765 ==
LOC: LC 15:26 → LR 19:18 → 2S 11-20 15:19
PROVIDERS: ADMIT Obstetrics & Gynecology; ATTEND Obstetrics & Gynecology
PROC: 10D00Z1 Extraction of Products of Conception, Low, Open Approach (ICD-10-PCS; principal; 2017-11-19)
PROC: 0UB70ZZ Excision of Bilateral Fallopian Tubes, Open Approach (ICD-10-PCS; 2017-11-19)
PROC: 4A1HXCZ Monitoring of Products of Conception, Cardiac Rate, External Approach (ICD-10-PCS; 2017-11-19)
DX: O76 Abnormality in fetal heart rate and rhythm complicating labor and delivery (principal); O30.033 Twin pregnancy, monochorionic/diamniotic, third trimester; O34.211 Maternal care for low transverse scar from previous cesarean delivery; O14.94 Unspecified pre-eclampsia, complicating childbirth; O99.843 Bariatric surgery status complicating pregnancy, third trimester; Z3A.33 33 weeks gestation of pregnancy; Z30.2 Encounter for sterilization; Z37.2 Twins, both liveborn
CPT/HCPCS: 1961; 36415; 80053; 80307; 81001; 83615; 83735; 84550; 85025; 86592; 86850; 86900; 86901; 88302; 88307; 96372; J0131; J0360; J0690; J0702; J1100; J1885; J2250; J2270; J2370; J2405; J2590; J2765; J3010; J3475; J3490

== ENCOUNTER 2017-11-23 22:47 | Inpatient (IN) | payer MEDICAID ==
[2017-11-23] MEDS ORDERED: LABETALOL HCL INJ 20 MG/4 ML DISP.SYRIN IV ONE ×2 (23:29→23:46)
[2017-11-23] MEDS ORDERED: PROCHLORPERAZINE EDISYLATE INJ 10 MG/2 ML VIAL IV ONE (23:30)
--- NOTE | 2017-11-23 23:44 | ER Document Report ---
ED General - General Chief Complaint: Headache Stated Complaint: HEADACHE Time Seen by Provider: 11/23/17 23:29 Notes: Patient is a 42-year-old female 4 days after delivery of twins at 33 weeks. was performed early due to patient having preeclampsia. She has been taking nifedipine as an outpatient due to ongoing hypertension in the period. She states that she followed up in a urgent care clinic today and was found to be hypertensive. She states that she also has developed a severe, constant throbbing headache to the bitemporal areas that is gotten progressively worse since onset approximately 5 hours ago. She denies a history of similar headaches in the past. She notes associated nausea without vomiting. No focal weakness or numbness. Nothing improves or worsens her symptoms. She states she was instructed to come to the emergency department by the urgent care. TRAVEL OUTSIDE OF THE [place] IN LAST 30 DAYS: No - Related Data Allergies/Adverse Reactions: No Known Allergies Allergy (Verified 11/23/17 22:48) Past Medical History - General Information source: Patient - Social History Smoking Status: Never Smoker Frequency of alcohol use: None Drug Abuse: None Lives with: Spouse/Significant other Family History: Reviewed & Not Pertinent Renal/ Medical History: Denies: Hx Peritoneal Dialysis Past Surgical History: Reports: Hx Section, Hx Gastric Bypass Surgery - Immunizations Immunizations up to date: Yes Hx Diphtheria, Pertussis, Tetanus Vaccination: Yes Review of Systems - Review of Systems Notes: Constitutional: Negative for fever. HENT: Negative for sore throat. Eyes: Negative for visual changes. Cardiovascular: Negative for chest pain. Respiratory: Negative for shortness of breath. Gastrointestinal: Positive for nausea Genitourinary: Negative for dysuria. Musculoskeletal: Negative for back pain. Skin: Negative for rash. Neurological: Positive for headache 10 point ROS negative except as marked above and in HPI. Physical Exam - Vital signs Vitals: Temp Pulse Resp BP Pulse Ox 97.8 F 88 18 168/108 H 98 11/23/17 23:00 11/23/17 23:00 11/23/17 23:00 11/23/17 23:00 11/23/17 23:00 Interpretation: Hypertensive Notes: PHYSICAL EXAMINATION: GENERAL: Appears uncomfortable but in no acute distress HEAD: Atraumatic, normocephalic. EYES: Pupils equal round and reactive to light, extraocular movements intact, sclera anicteric, conjunctiva are normal. ENT: nares patent, oropharynx clear without exudates. Moderately dry mucous membranes. NECK: Normal range of motion, supple without lymphadenopathy LUNGS: Breath sounds clear to auscultation bilaterally and equal. No wheezes rales or rhonchi. HEART: Regular tachycardia without murmurs ABDOMEN: Soft, nontender, normoactive bowel sounds. No guarding, no rebound. No masses appreciated. EXTREMITIES: Normal range of motion, 2+ pitting edema in the bilateral lower extremities that is equal and symmetric. No cyanosis. NEUROLOGICAL: Face symmetric. Tongue protrudes midline. Extraocular motions intact. Pupils are 2 mm and equally reactive. Normal speech, normal gait. 5 out of 5 strength in both the distal and proximal upper and lower extremities bilaterally. Sensation is grossly intact throughout. Finger to nose testing normal. Pronator drift normal. PSYCH: Moderately anxious SKIN: Warm, Dry, normal turgor, no rashes or lesions noted. Course - Re-evaluation Re-evalutation: 11/23/17 23:42 Patient presents with a progressively worsening headache over the last 6 hours with associated severe hypertension blood pressure at 170 systolic at time of my assessment with a manual check. Patient had preeclampsia during her , delivered her twin gestation early secondary to these concerns. Patient has no focal neurologic deficits on examination. However given her profoundly elevated blood pressure, severe headache, she is critically ill at this time and will require IV labetalol, IV magnesium, continuous telemetry close monitoring. 11/24/17 00:27 Patient has had significant improvement in her headache but not complete resolution. Her blood pressure initially came down to 140 systolic after the initial bolus of labetalol but recheck as her systolic at 157. Will give an additional 10 mg of IV labetalol. Magnesium is infusing. Will place on continuous magnesium thereafter. Will discuss with the ED[employer] PROJECT MANAGER after labs have resulted in patient's blood pressure has returned to an acceptable level 11/24/17 01:13 Patient's blood pressure has remained at 156 systolic on recheck. 10 mg of labetalol are being given currently. I have discussed with who has requested the patient brought to labor and delivery at this time. - Vital Signs Vital signs: Temp Pulse Resp BP Pulse Ox 97.8 F 88 18 158/102 H 95 11/23/17 23:00 01/19/18 23:00 11/24/17 01:31 11/24/17 01:31 11/24/17 01:31 - Laboratory Result Diagrams: 11/23/17 23:47 11/23/17 23:47 Laboratory results interpreted by me: 11/23/17 11/23/17 11/23/17 23:47 23:47 23:59 RDW 17.0 H AST 78 H Alkaline Phosphatase 171 H Urine Blood LARGE H Ur Leukocyte Esterase SMALL H Critical Care Note - Critical Care Note Total time excluding time spent on procedures (mins): 36 Comments: Critical care time spent obtaining history from patient or surrogate, discussions with consultants, development of treatment plan with patient or surrogate, evaluation of patient's response to treatment, examination of patient , ordering and performing treatments and interventions, ordering and review of laboratory studies, re-evaluation of patient's condition, ordering and review of radiographic studies and review of old charts Discharge - Discharge Clinical Impression: headache Preeclampsia Qualifiers: Trimester: unspecified trimester Qualified Code(s): O14.90 - Unspecified pre- eclampsia, unspecified trimester Condition: Fair Disposition: ADMITTED OBSERVATION Admitting Provider: [facility] Unit Admitted: Labor and Delivery
[2017-11-23] MEDS: MAGNESIUM SULFATE/D5W 1 GM/100 ML RTUPB IV SCH ×2 (23:52→23:53)
[2017-11-24] LABS: ABSOLUTE EOSINOPHILS # (AUTO) 0.1 10^3/uL (0.0-0.6); ABSOLUTE LYMPHOCYTES (AUTO) 2.1 10^3/uL (0.5-4.7); ABSOLUTE MONOCYTES (AUTO) 0.4 10^3/uL (0.1-1.4); ABSOLUTE NEUT (AUTO) 5.8 10^3/uL (1.7-8.2); BASOPHILS % (AUTO) 0.3 % (0-2); EOSINOPHILS % (AUTO) 1.3 % (0-6); HEMOGLOBIN 12.6 g/dL (12.0-15.5); LYMPHOCYTES % (AUTO) 25.4 % (13-45); MEAN CORPUSCULAR HGB CONC 33.2 g/dL (32.0-36.0); MEAN CORPUSCULAR VOLUME 81 fl (80-97); MONOCYTES % (AUTO) 4.9 % (3-13); PLATELET COUNT 274 10^3/uL (150-450); RED BLOOD COUNT 4.68 10^6/uL (3.72-5.28); SEGMENTED NEUTROPHILS % (AUTO) 68.1 % (42-78); TOTAL CELLS COUNTED % (AUTO) 100 %; WHITE BLOOD COUNT 8.5 10^3/uL (4.0-10.5)
[2017-11-24 00:18] LABS: APPEARANCE,URINE SLIGHTLY-CLOUDY; BILIRUBIN,URINE NEGATIVE (NEGATIVE); COLOR,URINE STRAW; GLUCOSE, URINE NEGATIVE (NEGATIVE); KETONES,URINE NEGATIVE (NEGATIVE); LEUKOCYTE ESTERASE,URINE SMALL (NEGATIVE); NITRITE,URINE NEGATIVE (NEGATIVE); PROTEIN,URINE NEGATIVE (NEGATIVE); URINE SPECIFIC GRAVITY 1.006; UROBILINOGEN,URINE NEGATIVE mg/dL (<2.0)
[2017-11-24 00:21] LABS: ANION GAP 9 (5-19)
[2017-11-24] MEDS ORDERED: LABETALOL HCL INJ 20 MG/4 ML DISP.SYRIN IV ONE ×3 (00:26→13:41)
[2017-11-24] MEDS ORDERED: MAGNESIUM SULFATE/D5W 1 GM/100 ML RTUPB IV ONE (00:27)
[2017-11-24 00:33] LABS: ALANINE AMINOTRANSFERASE 45 U/L (9-52); ALBUMIN 3.8 g/dL (3.5-5.0); ALKALINE PHOSPHATASE 171 U/L (38-126); ASPARTATE AMINO TRANSFERASE 78 U/L (14-36); BILIRUBIN,DIRECT 0.3 mg/dL (0.0-0.4); BILIRUBIN,TOTAL 0.5 mg/dL (0.2-1.3); BLOOD UREA NITROGEN 10 mg/dL (7-20); CALCIUM 9.9 mg/dL (8.4-10.2); CARBON DIOXIDE 28 mmol/L (22-30); CHLORIDE 104 mmol/L (98-107); GLUCOSE 99 mg/dL (75-110); SODIUM 141.3 mmol/L (137-145); TOTAL PROTEIN 6.9 g/dL (6.3-8.2)
[2017-11-24] MEDS ORDERED: ONDANSETRON HCL INJ/PF 4 MG/2 ML SDV IV PRN (01:44)
[2017-11-24] MEDS ORDERED: FUROSEMIDE INJ/PF 20 MG/2 ML SDV IV ONE (01:47)
[2017-11-24] MEDS ORDERED: MAGNESIUM SULFATE/D5W 1 GM/100 ML RTUPB IV SCH (02:04)
[2017-11-24] MEDS ORDERED: MAGNESIUM SULFATE/D5W 1 GM/100 ML RTUPB IV PRN ×2 (02:15→02:30)
[2017-11-24] MEDS ORDERED: MAGNESIUM SULFATE 20 GM/500 ML RTUINJ IV PRN (03:03)
[2017-11-24] MEDS ORDERED: FUROSEMIDE INJ/PF 40 MG/4 ML SDV ONE (03:07)
[2017-11-24] MEDS ORDERED: ACETAMINOPHEN 325 MG TABLET ONE ×4 (03:08→23:39)
[2017-11-24] MEDS ORDERED: ZOLPIDEM TARTRATE 5 MG TABLET ONE ×2 (03:08→23:26)
[2017-11-24] MEDS: ACETAMINOPHEN 325 MG TABLET PO PRN ×3 (03:16→23:46)
[2017-11-24] MEDS: ZOLPIDEM TARTRATE 5 MG TABLET PO PRN ×2 (03:19→23:47)
[2017-11-24] MEDS: MAGNESIUM SULFATE 20 GM/500 ML RTUINJ IV PRN ×2 (05:01→19:29)
[2017-11-24 07:18] LABS: ABSOLUTE EOSINOPHILS # (AUTO) 0.1 10^3/uL (0.0-0.6); ABSOLUTE LYMPHOCYTES (AUTO) 1.8 10^3/uL (0.5-4.7); ABSOLUTE MONOCYTES (AUTO) 0.4 10^3/uL (0.1-1.4); ABSOLUTE NEUT (AUTO) 4.5 10^3/uL (1.7-8.2); BASOPHILS % (AUTO) 0.3 % (0-2); EOSINOPHILS % (AUTO) 1.7 % (0-6); HEMATOCRIT 35.1 % (36.0-47.0); HEMOGLOBIN 11.7 g/dL (12.0-15.5); LYMPHOCYTES % (AUTO) 26.3 % (13-45); MEAN CORPUSCULAR HEMOGLOBIN 27.2 pg (27.0-33.4); MEAN CORPUSCULAR HGB CONC 33.5 g/dL (32.0-36.0); MEAN CORPUSCULAR VOLUME 81 fl (80-97); MONOCYTES % (AUTO) 5.7 % (3-13); PLATELET COUNT 246 10^3/uL (150-450); RED BLOOD COUNT 4.31 10^6/uL (3.72-5.28); RED CELL DISTRIBUTION WIDTH 16.8 % (11.5-14.0); TOTAL CELLS COUNTED % (AUTO) 100 %; WHITE BLOOD COUNT 6.8 10^3/uL (4.0-10.5)
[2017-11-24] MEDS ORDERED: DIAZEPAM 2 MG TABLET PO PRN (07:19)
[2017-11-24] MEDS: RINGERS SOLUTION,LACTATED 1,000 ML IV PRN ×2 (07:22→22:14)
[2017-11-24] MEDS ORDERED: DIAZEPAM 5 MG TABLET ONE ×2 (07:26→15:43)
[2017-11-24] MEDS ORDERED: LABETALOL HCL 200 MG TABLET ONE ×3 (07:27→22:22)
[2017-11-24] MEDS ORDERED: LABETALOL HCL 200 MG TABLET PO ONE (07:30)
[2017-11-24] MEDS ORDERED: DIAZEPAM 5 MG TABLET PO PRN (07:38)
[2017-11-24 08:40] LABS: ALANINE AMINOTRANSFERASE 48 U/L (9-52); ALBUMIN 2.5 g/dL (3.5-5.0); ALKALINE PHOSPHATASE 140 U/L (38-126); ASPARTATE AMINO TRANSFERASE 32 U/L (14-36); BILIRUBIN,DIRECT 0.2 mg/dL (0.0-0.4); BILIRUBIN,TOTAL 0.3 mg/dL (0.2-1.3); BLOOD UREA NITROGEN 6 mg/dL (7-20); CALCIUM 8.5 mg/dL (8.4-10.2); CARBON DIOXIDE 24 mmol/L (22-30); CHLORIDE 100 mmol/L (98-107); GLUCOSE 77 mg/dL (75-110); LDH 439 U/L (313-618); POTASSIUM 3.8 mmol/L (3.6-5.0); SODIUM 128.4 mmol/L (137-145); TOTAL PROTEIN 4.5 g/dL (6.3-8.2); URIC ACID 4.3 mg/dL (2.5-7.0)
[2017-11-24 08:46] LABS: ANION GAP 4 (5-19)
--- NOTE | 2017-11-24 11:44 | L&D Progress Notes ---
PROGRESS NOTES Datetime Report Generated by MAYRA: 11/24/2017 11:44 Impression Other: preeclampsia Plan: Continue Present Management Plan Other: Continue magnesium sulfate x 24hrs. Informed Consent Obtained: Risks, Benefits and Alternatives Discussed Vital Signs : Reviewed Vital Signs Comments: BP currently mildly elevated. Comment: Pt c/o SEYMOUR that is better than when she was admitted. Will give Tylenol. Continue to monitor. Signature: with User ID: [email or web address]
[2017-11-24] MEDS ORDERED: NIFEDIPINE 30 MG TAB.ER.24 PO ONE ×2 (17:41→18:30)
[2017-11-24] MEDS ORDERED: AMLODIPINE BESYLATE 2.5 MG TABLET PO ONE (21:00)
[2017-11-24] MEDS ORDERED: LABETALOL HCL 200 MG TABLET PO SCH (22:00)
--- NOTE | 2017-11-25 04:42 | Admission Physical ---
Datetime Report Generated by CPN: 11/25/2017 04:41 CURRENT ADMISSION Chief Complaint: Other Chief Complaint Other: PreE. S/p C/S on 11/19 for NRFHTs na dPreE Indication for Induction: PreEclampsia Indication for Induction: Observation/Evaluation Admit Plan: Admit to Unit; Observation/Evaluation ALLERGIES Medication Allergies: No Medication Allergies: No Known Allergies (11/24/2017) Medication Allergies: No Known Allergies (11/23/2017) Medication Allergies: No Known Allergies (08/30/2017) Medication Allergies: No Known Allergies (10/13/2016) Latex: No Latex Allergies OBSTETRICAL HISTORY EDC: 01/04/2018 00:00 : 6 Para: 5 Term: 5 : 0 SAB: 0 IAB: 0 Ectopic: 0 Livin Cesareans: 1 VBACs: 4 Multiple Births: 0 Gestational Diabetes: Yes Rh Sensitization: No Incompetent Cervix: No JAMILA: No Infertility: No ART Treatment: No Uterine Anomaly: No IUGR: No Hx Previous C/S: Yes Macrosomia: No Hx Loss/Stillborn: No PIH: Yes Hx : No Placenta Previa/Abruption: No Depression/PP Depression: Yes PTL/PROM: No Post Hemorrhage: Yes Current Procedures: Ultrasound; Cerclage Obstetrical History Comments: 1996 c/s for arrest of dilation 1999 (GDM) 2004 (GDM) 2005 (GDM) 01/2017 (GDM) current- mo-di twins, cerclage @21.3 for 1.2cm cervix with funneling SEE RECORDS Alcohol: No Marijuana : No Cocaine: No Other Illicit Drugs: No Cigarettes: Never Smoker. [id number] MEDICAL HISTORY Diabetes: Yes Diabetes Type: Gestational Diabetes Blood Transfusion: No Pulmonary Disease (Asthma, TB): No Breast Disease: No Hypertension: Yes Geophysical Data Technician Surgery: No Heart Disease: No Hosp/Surgery: Yes Autoimmune Disorder: No Anesthetic Complications: No Kidney Disease: No Abnormal Pap Smear: Yes Neuro/Epilepsy: No Psychiatric Disorders: No Other Medical Diseases: No Hepatitis/Liver Disease: No Significant Family History: No Varicosities/Phlebitis: No Trauma/Violence : No Thyroid Dysfunction: No Medical History Comments: gastric bypass 2010, obesity, GDM x4, AMA, close interval ,anemia, ASCUS with neg HPV 9/17, HSV, 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 (no issues after that, no PPD with G5) INFECTIOUS HISTORY Gonorrhea: No Genital Herpes: Yes Chlamydia: No Tuberculosis: No Syphilis: No Hepatitis: No HIV/AIDS Exposure: No Rash or Viral Illness: No HPV: No Infectious History Comments: HSV PHYSICAL EXAM General: Normal HEENT: Normal Neurologic: Normal Thyroid: Deferred Heart: Normal Lungs: Normal Breast: Deferred Back: Normal Abdomen: Normal Genitourinary Exam: Normal Extremities: Abnormal DTRs: Normal Pelvic Type: Adequate Physical Exam Comments: 2+ pitting edema bilaterally Vital Signs: Reviewed FETUS A EGA: 34.1 Admit Comment: 42yo approx 1 week from section at 33+3ega due to NRFHTs of Twin A then developed PreE and was on Magnesium for approx 12 hours pp with very good diuresis. She was discharged home on Procardia XL 60mg po daily. She took her dose this am due to SEYMOUR and then SEYMOUR became progressively worse. She reports that her SEYMOUR is not worse when she sits up - it is just bad all the time. She reports that after treatment of her BPs in the ER her SEYMOUR is improved. She is also not sleeping well. BP upon arrival to the ER was 168/108 and 172/120. She recieved IV labetolol and BPs improved. Pitting edema Nehemiah. Plan for admission and Magnesium SUlfate for seizure prophy. Will also give IV lasix due to edema. Treat SEYMOUR and BPs as needed. Continue to monitor On L_D. FETUS B Monitoring: External [place] Monitoring: External US Monitoring: External US Monitoring: External US Monitoring: External US Monitoring: External US Monitoring: External US Monitoring: External US Monitoring: External US Monitoring: External US Monitoring: External US Monitoring: External US Monitoring: External US Monitoring: External US Monitoring: External US Monitoring: External US Monitoring: External US Monitoring: External US Monitoring: External US PLANS FOR LABOR AND DELIVERY Labor and Delivery: None Pain Management: Natural Feeding Preference: Formula Benefit of Breast Feed Discussed: Yes Circumcision: Yes INFORMED CONSENT Informed Consent Obtained: Risks, Benefits and Alternatives Discussed Informed Consent Obtained: Section Delivery; Risks, Benefits and Alternatives Discussed Signature: with User ID: [email or web address]
[2017-11-25] MEDS: ACETAMINOPHEN 325 MG TABLET PO PRN ×4 (04:53→22:04)
[2017-11-25 06:58] LABS: ABSOLUTE EOSINOPHILS # (AUTO) 0.1 10^3/uL (0.0-0.6); ABSOLUTE LYMPHOCYTES (AUTO) 1.8 10^3/uL (0.5-4.7); ABSOLUTE MONOCYTES (AUTO) 0.5 10^3/uL (0.1-1.4); ABSOLUTE NEUT (AUTO) 4.6 10^3/uL (1.7-8.2); BASOPHILS % (AUTO) 0.5 % (0-2); EOSINOPHILS % (AUTO) 1.5 % (0-6); HEMATOCRIT 37.7 % (36.0-47.0); HEMOGLOBIN 12.5 g/dL (12.0-15.5); LYMPHOCYTES % (AUTO) 25.5 % (13-45); MEAN CORPUSCULAR HEMOGLOBIN 26.9 pg (27.0-33.4); MEAN CORPUSCULAR HGB CONC 33.1 g/dL (32.0-36.0); MEAN CORPUSCULAR VOLUME 82 fl (80-97); MONOCYTES % (AUTO) 6.9 % (3-13); PLATELET COUNT 277 10^3/uL (150-450); RED BLOOD COUNT 4.62 10^6/uL (3.72-5.28); RED CELL DISTRIBUTION WIDTH 17.1 % (11.5-14.0); SEGMENTED NEUTROPHILS % (AUTO) 65.6 % (42-78); TOTAL CELLS COUNTED % (AUTO) 100 %
[2017-11-25 07:28] LABS: ALANINE AMINOTRANSFERASE 40 U/L (9-52); ALBUMIN 3.3 g/dL (3.5-5.0); ALKALINE PHOSPHATASE 138 U/L (38-126); ANION GAP 6 (5-19); ASPARTATE AMINO TRANSFERASE 31 U/L (14-36); BILIRUBIN,DIRECT 0.2 mg/dL (0.0-0.4); BILIRUBIN,TOTAL 0.5 mg/dL (0.2-1.3); BLOOD UREA NITROGEN 12 mg/dL (7-20); CALCIUM 9.1 mg/dL (8.4-10.2); CARBON DIOXIDE 25 mmol/L (22-30); CHLORIDE 107 mmol/L (98-107); GLUCOSE 81 mg/dL (75-110); LDH 638 U/L (313-618); POTASSIUM 4.5 mmol/L (3.6-5.0); SODIUM 138.4 mmol/L (137-145); TOTAL PROTEIN 5.8 g/dL (6.3-8.2); URIC ACID 5.3 mg/dL (2.5-7.0)
[2017-11-25] MEDS ORDERED: LABETALOL HCL 200 MG TABLET PO ONE (08:30)
--- NOTE | 2017-11-25 09:41 | PDOC PROGRESS REPORT ---
Subjective-OB Subjective: Post readmit Pre-E 42 year old. Denies any needs at this time, lochia is stable, pain well controlled, mild headache, denies visual dist, epigastric pain. Physical Exam (OB) Vital Signs: Temp Pulse Resp BP Pulse Ox 97.4 F 69 16 134/84 H 98 11/25/17 08:00 11/25/17 08:00 11/25/17 08:00 11/25/17 08:00 11/25/17 08:00 - PIH/Pre-Eclampsia DTR's: 2 + Clonus: Negative Headache: Present Epigastric Pain: No Visual Changes: No - Dressing Removed: No Incision: Well Approximated Closure Type: op site - Lochia Lochia Amount: Scant < 10 ml Lochia Color: Rubra/Red - Abdomen Description: Tender, Soft, Round Hernia Present: No Objective-Diagnostic Laboratory: 11/25/17 06:48 11/25/17 06:48 11/24/17 11/25/17 11/25/17 21:02 06:48 06:48 WBC 7.0 RBC 4.62 Hgb 12.5 Hct 37.7 MCV 82 MCH 26.9 L MCHC 33.1 RDW 17.1 H Plt Count 277 Seg Neutrophils % 65.6 Lymphocytes % 25.5 Monocytes % 6.9 Eosinophils % 1.5 Basophils % 0.5 Absolute Neutrophils 4.6 Absolute Lymphocytes 1.8 Absolute Monocytes 0.5 Absolute Eosinophils 0.1 Absolute Basophils 0.0 Sodium 138.4 Potassium 4.5 Chloride 107 Carbon Dioxide 25 Anion Gap 6 BUN 12 Creatinine 0.70 Est GFR ( Amer) > 60 Est GFR (Non-Af Amer) > 60 Glucose 81 Uric Acid 5.3 Calcium 9.1 Magnesium 3.7 H Total Bilirubin 0.5 AST 31 ALT 40 Alkaline Phosphatase 138 H Total Protein 5.8 L Albumin 3.3 L Assessment and Plan(PN) - Assessment and Plan (1) headache Is this a current diagnosis for this admission?: Yes Plan: continue to monitor (2) Pre-eclampsia Qualifiers: Trimester: unspecified trimester Qualified Code(s): O14.90 - Unspecified pre-eclampsia, unspecified trimester Is this a current diagnosis for this admission?: Yes Plan: continue bp mgmt report worsening symptoms cardiology to see pt today (3) Advanced maternal age (AMA), 40 years or greater Is this a current diagnosis for this admission?: Yes Plan: n/a (4) Multiple gestation, delivered Is this a current diagnosis for this admission?: Yes Plan: routine post op care - Time Spent with Patient Time with patient: Less than 15 minutes Critical Time spent with patient: Less than 15 minutes Smoking Education Provided: Over 3 minutes Medications reviewed and adjusted accordingly: Yes - Disposition Anticipated Discharge: Home Within: within 48 hours
[2017-11-25] MEDS: AMLODIPINE BESYLATE 2.5 MG TABLET PO SCH ×2 (09:43→21:52)
--- NOTE | 2017-11-25 19:43 | EKG REPORT ---
SEVERITY:- ABNORMAL ECG - SINUS RHYTHM FIRST DEGREE AV BLOCK LEFT ATRIAL ABNORMALITY : Confirmed by: Sherice Anthony 25-Nov-2017 19:42:55
[2017-11-25] MEDS: LABETALOL HCL 200 MG TABLET PO SCH (19:50)
--- NOTE | 2017-11-25 20:29 | CONSULTATION REPORT E ---
Consultation Report NAME: JESSIE SELF : 1975 AGE: 42Y DATE: 11/25/2017 212 B TO: BENJAMÍN CLEMONS M.D. FROM: IKE MARINO M.D. Requesting Physician REASON FOR CONSULTATION: Patient diagnosed as having pre-eclampsia with complete reading of the EKGs being abnormal and the patient having hypertension. HISTORY: The patient is a 42-year-old female who about a week ago had a due to distress and had *------*. The patient, since then, has been having headaches. Her third trimester during the , the patient's blood pressure was difficult to control. The patient came in with severe headaches and has been diagnosed as having pre-eclampsia and given magnesium. Blood pressure is slightly uncontrolled. The computer read the EKG as being abnormal with first-degree AV block and left atrial abnormality. The patient denies any chest pain or discomfort. Her blood pressure is much well controlled with me having started her on amlodipine 2.5 mg p.o. q. 12 hours along with labetalol 200 mg p.o. q. 12 hours. The patient denies any PND, orthopnea, leg edema. There is no chest pain or discomfort except that the blood pressure was high and the patient was complaining of some chest pressure. There are no TIA or CVA symptoms. There are no palpitations. PAST MEDICAL HISTORY: Possible history of morbid obesity. Patient just had gastric bypass surgery in 2005. She has no history of diabetes mellitus. History of hypertension during the third trimester of , which has been difficult to control. The patient is now being diagnosed as having pre-eclampsia. There is no history of asthma, COPD, or TIA or CVA symptoms. There is no diabetes mellitus or thyroid disease. There is no chronic kidney disease. PAST SURGICAL HISTORY: Positive for: 1. History of gastric bypass surgery in 2005. 2. History of left inguinal hernia surgery. FAMILY HISTORY: Positive for heart disease, but no history of CO. History of hypertension present in the family. SOCIAL HISTORY: The patient does not smoke. There is no history of ETOH abuse. DISPOSITION: The patient is a FULL CODE. Her is the surrogate healthcare decision maker. REVIEW OF SYSTEMS: CONSTITUTIONAL: Denies any fever, chills, or rigors. Complains of generalized fatigue and weakness. HEAD: Complains of headaches, especially when her blood pressure is up. There is some dizziness also when the blood pressure is up, but there is no syncope. There is no head injury. EYES: No history of amblyopia or diplopia. No history of amaurosis fugax. EARS: No history of hearing loss. No history of tinnitus. No history of recurrent ear infections. NOSE: No history of nosebleeds. No history of hay fever. No history of nasal polyps. MOUTH: No altered taste sensation. No ulcers in the mouth. No bleeding from the gums. THROAT: No odynophagia or dysphagia. No history of recurrent sore throats. SKIN: No history of pruritus. No history of psoriasis. No history of skin cancer. NECK: No history of pain in the neck or symptoms suggestive of C-spine arthritis. There is no swelling in the neck. LUNGS: No history of asthma or COPD. No history of symptoms of upper respiratory tract infection or lower respiratory tract infection. No history of cough, sputum production. No history of sleep apnea. No history of hemoptysis. No history of pleuritic chest pain. No history of pulmonary embolism. No wheezing. CARDIAC: History of hypertension, as mentioned earlier, but no history of congestive heart failure. No history of coronary artery disease. History of chest pressure when her blood pressure is up, but at present, the patient is asymptomatic. Her EKG is within normal limits, as per my interpretation. There is no PND, orthopnea. No history of congestive heart failure. No history of arrhythmias. No history of syncope. Dizziness when the blood pressure is up. There is no leg edema. RENAL: No history of chronic kidney disease. No history of hematuria, pyuria, or dysuria. MUSCULOSKELETAL: Denies arthritis or rheumatoid arthritis. GASTROINTESTINAL: No history of gastrointestinal bleed. No history of altered bowel movements. No history of peptic ulcer disease. No history of GERD symptoms. No history of fatty food intolerance. No history of cirrhosis. ENDOCRINE: No history of diabetes mellitus. No history of thyroid disease. No history of polydipsia, polyuria. No history of heat or cold intolerance. METABOLIC: History of obesity present. No history of hyperlipidemia. CENTRAL NERVOUS SYSTEM: No history of TIA or CVA. No history of seizures. No history of migraines, but the patient has headaches when her blood pressure is up. No history of sleep apnea. No history of gait imbalance. No history of seizures. PSYCHIATRIC: No history of anxiety or depression. No history of suicidal ideation. No history of homicidal ideation. VASCULAR: No history of cough or buttock claudication. No history of DVT. HEMATOLOGICAL: No history of bleeding diathesis. No history of clotting disorders. Note that the patient's platelet is normal. PHYSICAL EXAMINATION: GENERAL: The patient is morbidly obese, but at present, in no acute distress. VITAL SIGNS: She is afebrile with a temperature of 97.4 degrees Fahrenheit, pulse is 69 beats per minute, blood pressure 134/84, respirations 16 per minute, O2 saturations are 98% on room air. HEAD: Atraumatic, normocephalic. EYES: Pupils are equal, round, regular, reactive to light and accommodation. Extraocular movements are normal. There is no conjunctival pallor. There is no scleral icterus. EARS: Tympanic membranes are intact. External auditory canals are clear. NOSE: There is no deviated nasal septum. There is no inflammation of the nasal mucous membranes. MOUTH: Mucous membranes of the mouth are moist. Tongue is moist. There are no ulcers. There is no bleeding from the gums. THROAT: There is no redness of the oropharynx. There are no exudates. SKIN: There are no skin rashes. There is no petechia or ecchymosis. NECK: Supple. There is no JVD. Carotids are equal. There is no bruit. There is no lymphadenopathy. There is no goiter. There are no accessory muscles of respiration in use. Trachea is central. LUNGS: Clear to auscultation and percussion. There is no chest wall tenderness. CARDIOVASCULAR: S1 and S2 are heard. There is no S3 gallop. There is no S4 gallop. There is a systolic murmur in the left sternal border of the apex ? mitral regurgitation, ? significance. There is also murmur in the aortic area without radiation. There is no rub. ABDOMEN: Obese, nontender. There is no hepatosplenomegaly. Bowel sounds are well heard. There are no tender areas or masses. site dressing is clean and dry. EXTREMITIES: Femorals are deep. Femorals are decreased. There are no femoral bruits. Leg pulses are slightly diminished. There is no pedal edema. There is no DVT or cellulitis. There is no calf tenderness. CENTRAL NERVOUS SYSTEM: The patient is conscious, awake, alert, oriented x3 with no focal deficits. PSYCHIATRIC: The patient's judgment and insight are intact. Her affect is normal. IMAGING: The patient's EKG, as read by the computer, is sinus rhythm, first-degree AV block with left atrial enlargement. My interpretation is that the patient's EKG is within normal limits except there is low voltage in the precordial leads, most likely secondary to the patient's obesity. Otherwise, the EKG is within normal limits. LABORATORY: The patient's white count is 7000, hemoglobin is 12.5, hematocrit is 37.7, platelet count is 277,000. The patient's sodium is 138.4, potassium 4.5, chloride 107, CO2 is 25. The patient's BUN is 12, creatinine 0.70. GFR is greater than 60. Glucose is 81. Uric acid is 5.3. Calcium is 9.1. Her magnesium yesterday night was 3.7, but the patient was getting magnesium drip. The patient's liver function tests are normal except for a slightly elevated Alk phos of 138. The patient's LDH is 638, total protein is 5.8, albumin is 3.3. The patient's urine shows that it is straw colored with slightly cloudy appearance. PH is 7.0, specific gravity is 1.006. If the patient's urine blood is large, pH is 7.0, which is normal. Urine protein is negative. Urobilinogen is negative. Urine nitrate is negative. Urine leukocyte esterase is small. Urine ascorbic acid level is negative. Urine RBC is 17 per high-power field and urine WBC is 8 per high-power field, urine bacteria is 1+, urine mucus is rare/low power field, and urine squamous epithelial cells is 7 per high-power field. IMPRESSION: 1. Hypertension, at present seems to be well controlled. 2. pre-eclampsia as per [employer] diagnosis. 3. Normal EKG by my interpretation. 4. Systolic murmur. 5. Recent with delivery of twins due to distress. RECOMMENDATION: Continue labetalol at 200 mg p.o. b.i.d. and also continue Norvasc at 2.5 mg p.o. b.i.d. Will get the patient's echocardiogram done in the a.m. to assess for LV ejection fraction, *------*, and for systolic murmur. Discussed with the patient and the patient's . All questions answered. Discussed with [employer] also. NOTE: The patient was seen at 11:00 in the morning and 45 minutes spent on this patient with more than 50% of the time spent in direct patient care. NOTE: The patient's medications have been reviewed and the plan of care and medications have been discussed with the attending physician, Dr. Marino. NOTE: Medical decision making is of low complexity. Will follow with you. DICTATING PHYSICIAN: BENJAMÍN CLEMONS M.D. [id number] HUSSAINY#: [id number] ID: [id number] JOB#: [id number] ACCT: [id number] cc:BENJAMÍN CLEMONS M.D. >
[2017-11-26] MEDS: LABETALOL HCL 200 MG TABLET PO SCH (08:04)
--- NOTE | 2017-11-26 08:20 | Delivery Summary ---
Del Sum A-C Datetime Report Generated by CPN: 11/26/2017 08:20 DELIVERY PERSONNEL DELIVERY PERSONNEL: [id number] Delivery Doctor:: Estrella Medina MD Anesthesiologist:: Wai Babb MD TRAFFIC LINE PAINTER:: Génesis Burns CRNA Labor and Delivery Nurse:: Lamar Solares RN Labor and Delivery Nurse:: Kym Angeles RN Precast Molder:: Dr. Lamont Herron Nurse Practitioner:: KHUSHBOO Valentino Nursery Nurse:: Sheree Muñoz RN MSN Nursery Nurse:: Krystin Hinojosa RN Master Of Ceremonies/RIPENING ROOM HAND: Yolanda Vu CST Master Of Ceremonies/RIPENING ROOM HAND: Starla Arteaga, ST MATERNAL INFORMATION Delivery Anesthesia: Spinal (Annotations: Data stored by [facility] on behalf of user) Medications After Delivery: Pitocin Drip 20 Units/1000ml NSS Estimated Blood Loss (ml): 600 Maternal Complications: Other Other Maternal Complications: hypertension LABOR SUMMARY EDC: 01/04/2018 00:00 No. Babies in Womb: 2 Attempted: No Labor Anesthesia: None LABOR INFORMATION Reason for Induction: Not Applicable Oxytocin: N/A Group B Beta Strep: negative Steroids Given: Partial Course Reason Steroids Not Administered: Not Applicable MEMBRANES Membranes Rupture Method: Artificial Rupture of Membranes: 11/19/2017 21:17 Length of Rupture (hr): 0.00 Amniotic Fluid Color: Clear Amniotic Fluid Amount: Moderate Amniotic Fluid Odor: Normal STAGES OF LABOR Stage 3 hr: 0 Stage 3 min: 3 VAGINAL DELIVERY Episiotomy: None Laceration #1: None Laceration Extension #1: N/A Laceration Repair: Not Applicable Sponge Count Correct: N/A Sharps Count Correct: N/A CSECTION DELIVERY Primary Indication: Nonreassuring Status CSection Urgency: Non-Scheduled CSection Incidence: Repeat Labor: N/A Elective: N/A CSection Incision: Lower Uterine Transverse Sterilization Procedure: Elida BABY A INFORMATION Delivery Date/Time: 11/19/2017 21:17 Method of Delivery: Born in Route : No : N/A Forceps: N/A Vacuum Extraction: N/A Shoulder Dystocia : No PRESENTATION/POSITION BABY A Presentation: Cephalic Cephalic Presentation: Vertex Breech Presentation: N/A PLACENTA INFORMATION BABY A Placenta Delivery Time : 11/19/2017 21:20 Placenta Method of Delivery: Manual Removal Placenta Status: Delivered SCORES BABY A Heart Rate 1 min: >100 bpm Resp Effort 1 min: Absent Reflex Irritability 1 min: Cough or Sneeze or Pulls Away Muscle Tone 1 min: Some Flexion of Extremities Color 1 min: Blue/Pale SCORE 1 MIN: 5 Heart Rate 5 min: >100 bpm Resp Effort 5 min: Good Cry Reflex Irritability 5 min: Cough or Sneeze or Pulls Away Muscle Tone 5 min: Active Motion Color 5 min: Blue/Pale SCORE 5 MIN: 8 INFANT INFORMATION BABY A Gestational Age at Delivery: 33.3 Gestational Status: - <34 Weeks Infant Outcome : Liveborn Condition : Stable Sex: Male IDENTIFICATION BABY A Infant Verification Date/Time: 11/19/2017 22:10 ID Band Number: [id number] Mother's Name Verified: Yes Infant RN Verifying Infant: SShasta Whitt, RN _ MalcomShasta Nancy Solares, TANNA WEIGHT/LENGTH BABY A Birthweight (gm): 1820 Weight (lb): 4 Weight (oz): 0 Infant Length (in): 16.50 Length (cm): 41.91 CORD INFORMATION BABY A No. Cord Vessels: 3 Nuchal Cord : N/A Cord Blood Taken: Yes-For Storage (Mom's Blood type +) ASSESSMENT BABY A Infant Complications: Multiple Late Decels; Other Complications- Other: prolonged decels Physical Findings at Delivery: Within Normal Limits Skin to Skin: No Skin to Skin: No Skin to Skin: No Skin to Skin: No Skin to Skin: No Precast Molder/ALS Called : Yes Infant Care By: Annette Muñoz RN Transferred To: NICU BABY B INFORMATION Delivery Date/Time: 11/19/2017 21:19 Method of Delivery : Born in Route : No : N/A Forceps : N/A Vacuum Extraction: N/A Shoulder Dystocia : No SHOULDER DYSTOCIA BABY B Infant Delivery Date/Time: 11/19/2017 21:19 PRESENTATION/POSITION BABY B Presentation : Cephalic Cephalic Position : Vertex Breech Position: N/A ROM/PLACENTA INFO BABY B Rupture of Membranes: 11/19/2017 21:19 Length of Rupture (hr): 0.00 Placenta Delivery Time : 11/19/2017 21:20 Placenta Method of Delivery: Manual Removal Placental Status : Delivered SCORES BABY B Heart Rate 1 min: >100 bpm Resp Effort 1 min: Good Cry Reflex Irritability 1 min: Cough or Sneeze or Pulls Away Muscle Tone 1 min: Active Motion Color 1 min: Blue/Pale Resuscitation Effort 1 min: Tactile Stimulation SCORE 1 MIN: 8 Heart Rate 5 min: >100 bpm Resp Effort 5 min: Good Cry Reflex Irritability 5 min: Cough or Sneeze or Pulls Away Muscle Tone 5 min: Active Motion Color 5 min: Body Pryor, Extremities Blue Resuscitation Effort 5 min: Tactile Stimulation SCORE 5 MIN: 9 INFANT INFORMATION BABY B Gestational Age at Delivery: 33.3 Gestational Status : - <34 Weeks Outcome : Liveborn Condition : Stable Infant Sex : Male IDENTIFICATION BABY B Verification Date/Time: 11/19/2017 22:11 ID Band Number : [id number] Mother's Name Verified: Yes RN Verifying Infant: Chris Whitt, TANNA _ Vani Solares RN WEIGHT/LENGTH BABY B Birthweight (gm): 2382 Infant Weight (lb) : 5 Weight (oz): 4 Length (in): 19.00 Length (cm): 48.26 CORD INFORMATION BABY B No. Cord Vessels : 3 Nuchal Cord : N/A Cord Blood Taken : Yes-For Storage (Mom's Blood Type +) ASSESSMENT BABY B Complications : None Physical Findings at Delivery: Within Normal Limits Respirations : Appears Normal Precast Molder/ALS Called : Yes Care By : Violet Hinojosa RN Transfer To: NICU
[2017-11-26] MEDS: AMLODIPINE BESYLATE 2.5 MG TABLET PO SCH (10:04)
--- NOTE | 2017-11-26 10:45 | XCELERA REPORT ---
[address] [address] Transthoracic Echocardiogram Report Name: JESSIE SELF Age: 42 yrs Gender: Female : 1975 Patient Status: Inpatient Patient Location: [facility]212B Study Date: 11/26/2017 09:21 AM Height: 66 in Weight: 250 lb BSA: 2.2 m2 Procedure: A two-dimensional transthoracic echocardiogram with color flow Doppler was performed. Study Quality: Fair. Reason For Study: PREECLAMPSIA, HTN, MURMUR History: PREECLAMPSIA, HTN, MURMUR. Ordering Physician: IKE MARINO Performed By: Starla Harrison Interpretation Summary The left ventricle is normal in size. There is normal left ventricular wall thickness. LV EF is > than 65% Left ventricular systolic function is normal. Doppler measurements suggest normal left ventricular diastolic function ( By tissue doppler). The left ventricular wall motion is normal. There is no thrombus. There is no ventricular septal defect visualized. The right ventricle is grossly normal size. The right atrium is normal. The left atrium is borderline dilated. The interatrial septum is intact with no evidence for an atrial septal defect. There is no evidence of mitral valve prolapse. There is no vegetation seen on the mitral valve. There is no mitral valve stenosis. There is no mitral regurgitation noted. There is no aortic valvular vegetation. There is no aortic valve stenosis There is no LVOT obstruction. No aortic regurgitation is present. There is no tricuspid stenosis. There is a trace amount of tricuspid regurgitation Right ventricular systolic pressure is normal. RVSP is 26 mm of Hg , with RA mean of 5. There is no pulmonic valvular stenosis. There is no pulmonic valvular regurgitation. The aortic root is normal size. There is no pericardial effusion. MMode/2D Measurements & Calculations RVDd: 3.1 cm LVIDd: 5.6 cm FS: 36.5 % Ao root diam: 2.9 cm IVSd: 0.97 cm LVIDs: 3.5 cm EDV(Teich): 152.4 ml LVPWd: 0.97 cm ESV(Teich): 52.5 ml Ao root area: 6.6 cm2 EF(Teich): 65.6 % Doppler Measurements & Calculations MV E max celsa: MV dec slope: Ao V2 max: LV V1 max P.1 cm/sec 133.9 cm/sec 4.4 mmHg MV A max celsa: 383.9 cm/sec2 Ao max PG: LV V1 max: 78.9 cm/sec MV dec time: 7.2 mmHg 104.3 cm/sec MV E/A: 0.98 0.20 sec PA V2 max: TR max celsa: 102.8 cm/sec 229.9 cm/sec PA max PG: TR max P.1 mmHg 4.2 mmHg Left Ventricle The left ventricle is normal in size. There is normal left ventricular wall thickness. LV EF is > than 65%. Left ventricular systolic function is normal. Doppler measurements suggest normal left ventricular diastolic function. ( By tissue doppler). The left ventricular wall motion is normal. There is no thrombus. There is no ventricular septal defect visualized. Right Ventricle The right ventricle is grossly normal size. Atria The right atrium is normal. The left atrium is borderline dilated. The interatrial septum is intact with no evidence for an atrial septal defect. Mitral Valve There is no evidence of mitral valve prolapse. There is no vegetation seen on the mitral valve. There is no mitral valve stenosis. There is no mitral regurgitation noted. Aortic Valve There is no aortic valvular vegetation. There is no aortic valve stenosis. There is no LVOT obstruction. No aortic regurgitation is present. Tricuspid Valve There is no tricuspid stenosis. There is a trace amount of tricuspid regurgitation. Right ventricular systolic pressure is normal. RVSP is 26 mm of Hg , with RA mean of 5. Pulmonic Valve There is no pulmonic valvular stenosis. There is no pulmonic valvular regurgitation. Great Vessels The aortic root is normal size. Effusions There is no pericardial effusion. : IKE MARINO > Suzan Lindsay
--- NOTE | 2017-11-26 11:09 | PDOC PROGRESS REPORT ---
Subjective-OB Subjective: Post Delivery Day: 42 year old. Denies any needs at this time Doing well, no c/o, eating well, voiding, no pain, denies headache, blurred vision, eating, scant lochia Physical Exam (OB) Vital Signs: Temp Pulse Resp BP Pulse Ox 98.6 F 63 18 151/92 H 100 11/26/17 09:06 11/26/17 09:06 11/26/17 09:06 11/26/17 09:06 11/26/17 09:06 Intake & Output 11/25/17 11/26/17 11/27/17 06:59 06:59 06:59 Intake Total 980 Balance 980 - PIH/Pre-Eclampsia DTR's: 1 + Clonus: Negative Headache: Present Epigastric Pain: No Visual Changes: No - Dressing Removed: No - opsite Incision: Dressing Closure Type: op site - Lochia Lochia Amount: Small 10-25 ml Lochia Color: Rubra/Red - Abdomen Description: Soft, Round Hernia Present: No Fundal Description: Firm, Midline Fundal Height: u/u - u/2 Objective-Diagnostic Laboratory: 11/25/17 06:48 11/25/17 06:48 Assessment and Plan(PN) - Assessment and Plan (1) headache Is this a current diagnosis for this admission?: Yes (2) Pre-eclampsia Qualifiers: Trimester: unspecified trimester Qualified Code(s): O14.90 - Unspecified pre-eclampsia, unspecified trimester Is this a current diagnosis for this admission?: Yes (3) Advanced maternal age (AMA), 40 years or greater Is this a current diagnosis for this admission?: Yes - Time Spent with Patient Time with patient: Less than 15 minutes Smoking Education Provided: Over 3 minutes Medications reviewed and adjusted accordingly: Yes - Disposition Anticipated Discharge: Home Within: Other - home today, Dr. Rico in to see pt, Echo WNL, will FU in Dr. Rico 's office and with us on Sunday or for BP check, rev S&S to report
--- NOTE | 2017-11-26 11:12 | PDOC DISCHARGE SUMMARY ---
Final Diagnosis Discharge Date: 11/26/17 - Final Diagnosis (1) headache Is this a current diagnosis for this admission?: Yes (2) Pre-eclampsia Is this a current diagnosis for this admission?: Yes (3) Advanced maternal age (AMA), 40 years or greater Is this a current diagnosis for this admission?: Yes Discharge Data - Discharge Medication Prescriptions: Amlodipine Besylate [Norvasc 2.5 mg Tablet] 2.5 mg PO Q12 #60 tablet Labetalol HCl [Normodyne 200 mg Tablet] 200 mg PO Q12@0800,1999 #60 tablet Home Medications: Docusate Sodium [Colace 100 mg Capsule] 100 mg PO BID #60 capsule 11/22/17 Vit/Iron Fum/Folic AC [ Tablet] 1 tab PO DAILY #90 tablet 11/22 Amlodipine Besylate [Norvasc 2.5 mg Tablet] 2.5 mg PO Q12 #60 tablet 11/26/17 Labetalol HCl [Normodyne 200 mg Tablet] 200 mg PO Q12@799,1999 #60 tablet 11/26 - Diagnosis Test Laboratory: Temp Pulse Resp BP Pulse Ox 98.6 F 63 18 151/92 H 100 11/26/17 09:06 11/26/17 09:06 11/26/17 09:06 11/26/17 09:06 11/26/17 09:06 11/24/17 11/25/17 07:01 06:48 RBC 4.31 4.62 Hgb 11.7 L 12.5 Hct 35.1 L 37.7 - Discharge information/Instructions Discharge Activity: Activity As Tolerated Discharge Diet: As Tolerated Disposition: HOME, SELF-CARE Follow up with: [facility] in: 3, Days - pt to return to [facility] Sunday or
[2017-11-26 11:19] VITALS: BP 123/80
--- NOTE | 2017-11-26 20:29 | PROGRESS NOTE E ---
Progress Note NAME: JESSIE SELF : 1975 AGE: 42Y DATE: 11/26/2017 ROOM: 212 SUBJECTIVE: The patient denies any chest pain or discomfort. No further chest pressure. There is no PND or orthopnea. There is no shortness of breath. There are no palpitations. There is no leg edema. OBJECTIVE: GENERAL: On examination, the patient is moderately obese, in no acute distress. She is well groomed. VITAL SIGNS: She is afebrile with a temperature of 98.6 degrees Fahrenheit, pulse is 85 beats per minute, blood pressure is 123/80, respirations are 14 per minute, O2 sats 100% on room air. HEENT: Head is atraumatic, normocephalic. Eyes: Pupils are equal, round, regular, reactive to light and accommodation. Extraocular movements are normal. There is no conjunctival pallor. There is no scleral icterus. Ears: Her tympanic membranes are intact. External auditory canals are clear. Nose: There is no deviated nasal septum. There is no inflammation of the nasal mucous membranes. Mouth: Mucous membranes of the mouth are moist. Tongue is moist. There are no ulcers. There is no bleeding from the gums. Throat: There is no redness of the oropharynx. There are no exudates in the throat. SKIN: Without any skin lesions or skin rashes. There is no petechia or ecchymosis. NECK: Supple. There is no JVD. There is no goiter. There is no lymphadenopathy. There are no accessory muscles of respiration used. Carotids are equal. There is no bruit. Trachea is central. LUNGS: Clear to auscultation and percussion. There is no chest wall tenderness. HEART: S1 and S2 are heard. There is no S3 gallop. There is no S4 gallop. There is a systolic murmur in the left sternal border in the apex without radiation. There is no rub. ABDOMEN: Soft, obese, nontender. There is no hepatosplenomegaly. Bowel sounds are well heard. There are no tender areas or masses. EXTREMITIES: Femorals are deep. Femorals are diminished. There are no femoral bruits. Leg pulses are diminished. There is no pedal edema. There is no DVT or cellulitis. There is no calf tenderness. There is no cyanosis or clubbing. CENTRAL NERVOUS SYSTEM: The patient is conscious, awake, alert, oriented x3, with no focal deficit. DIAGNOSTIC STUDIES: The patient's echocardiogram shows normal left ventricular wall thickness, chamber size, wall motion and ejection fraction which is greater than 65%. There is normal left ventricular diastolic function. The left atrium is borderline dilated which could still be normal in a patient who just delivered about a week ago. The intraatrial septum is intact with no evidence of atrial septal defect. The right atrium is normal. There is no evidence of mitral valve prolapse. There is no vegetation seen on the mitral valve. There is no mitral regurgitation noted. There is no aortic stenosis or aortic regurgitation. There is no tricuspid stenosis. There is a trace amount of tricuspid regurgitation. Right ventricular systolic pressure is normal at 26 mmHg with a right atrial mean of 5. There is no pericardial effusion. IMPRESSION: 1. POST- PREECLAMPSIA PER OPERATING SYSTEMS PROGRAMMER. 2. HYPERTENSION. 3. MORBID OBESITY. 4. SYSTOLIC MURMUR WHICH IS A FLOW MURMUR. RECOMMENDATIONS: The patient's blood pressure is well controlled. Would recommend discharging the patient. The patient can follow up with me if she so desires. Echo discussed with the patient. Note: Would recommend discharging the patient on labetalol and amlodipine at current doses. If the patient does choose to follow up with me, I have given her my cell number to call me to set up an appointment. Discussed with Ms. Juliane Carter of Obstetrics/Gynecology. Note, her medications have been reviewed. Note, medical decision making now is of moderate complexity. Note that the patient's cardiac status is stable. We will sign off the case. Thanking you, DICTATING PHYSICIAN: BENJAMÍN CLEMONS M.D. [id number] PHY#: [id number] ID: [id number] JOB#: [id number] ACCT: [id number] cc: >
== END 2017-11-26 12:43 | disposition home or self-care (01) | DRG 776 ==
LOC: ER 22:47 → EH 11-24 01:20 → OBSVTOIN 11-24 01:20 → LR 11-24 02:36 → 2N 11-25 04:20
PROVIDERS: ADMIT Student in an Organized Health Care Education/Training Program; ATTEND Student in an Organized Health Care Education/Training Program
DX: O14.95 Unspecified pre-eclampsia, complicating the puerperium (principal); Z68.41 Body mass index [BMI] 40.0-44.9, adult; O99.215 Obesity complicating the puerperium; E66.01 Morbid (severe) obesity due to excess calories; R01.1 Cardiac murmur, unspecified; O99.89 Other specified diseases and conditions complicating pregnancy, childbirth and the puerperium; O99.845 Bariatric surgery status complicating the puerperium; Z82.49 Family history of ischemic heart disease and other diseases of the circulatory system; Z98.891 History of uterine scar from previous surgery
CPT/HCPCS: 36415; 80053; 81001; 83615; 83735; 84550; 85025; 93005; 93010; 93306; 94760; 94799; 96365; 96366; 96375; 96376; 99291; J0780; J1940; J3475; J3490

== ENCOUNTER 2018-01-15 00:23 | Emergency (ER) | payer MEDICAID ==
[2018-01-15] MEDS ORDERED: FAMOTIDINE 20 MG TABLET PO ONE (02:03)
[2018-01-15] MEDS ORDERED: LIDOCAINE 2% VISCOUS SOLN 20 ML UDCUP PO ONE (02:03)
--- NOTE | 2018-01-15 02:13 | ER Document Report ---
ED General - General Chief Complaint: Chest Pain Stated Complaint: CHEST PAIN Time Seen by Provider: 01/15/18 01:46 Mode of Arrival: Ambulatory Information source: Patient TRAVEL OUTSIDE OF THE [place] IN LAST 30 DAYS: No - HPI Notes: Patient is a 42-year-old white female history of twin 2 months ago complicated by preeclampsia and a presents emergency department with report of chest pain that came on more at rest about 5 hours ago of gradual onset with a mild radiation through to the back. The patient states she had mild chest pain and then vomited and the chest pain became worse. The patient denies any shortness of breath, fever, constipation, diarrhea, cough, abdominal pain. The patient does have previous history of mild gastritis and she has been on doxycycline for the past week related to vaginal discharge after her cerclage was removed. Patient denies any vaginal discharge or bleeding now. She reports no fever or chills. She States that she took the doxycycline and did not drink significant amount of water or eat anything afterwards to make sure the pill went down. Patient is a non-smoker. Family history no cardiac disease. Past medical history gastric bypass 12 years ago and previous . Medications doxycycline and labetalol. - Related Data Allergies/Adverse Reactions: No Known Allergies Allergy (Verified 11/24/17 06:37) Past Medical History - General Information source: Patient - Is abscess gauze but more they will used as did make sense because he wanted to get smaller but perianal. - Social History Smoking Status: Never Smoker Frequency of alcohol use: None Drug Abuse: None Lives with: Family Family History: Reviewed & Not Pertinent - Past Medical History Cardiac Medical History: Reports: Hx Hypertension Renal/ Medical History: Denies: Hx Peritoneal Dialysis Past Surgical History: Reports: Hx Section, Hx Gastric Bypass SurgeryComment Only: Hx Abdominal Surgery - hernia repair, gastric bypass - Immunizations Immunizations up to date: Yes Hx Diphtheria, Pertussis, Tetanus Vaccination: Yes Review of Systems - Review of Systems Notes: REVIEW OF SYSTEMS: CONSTITUTIONAL : Denies fever, chills, or sweats. Denies recent illness. EENT: Denies eye, ear, throat, or mouth pain or symptoms. Denies nasal or sinus congestion or discharge. Denies throat, tongue, or mouth swelling or difficulty swallowing. CARDIOVASCULAR: Denies palpitations or racing or irregular heart beat. Denies ankle edema. RESPIRATORY: Denies cough, cold, or chest congestion. Denies shortness of breath, difficulty breathing, or wheezing. GASTROINTESTINAL: Denies abdominal pain or distention. Denies nausea, vomiting , or diarrhea. Denies blood in vomitus, stools, or per rectum. Denies black, tarry stools. Denies constipation. GENITOURINARY: Denies difficulty urinating, painful urination, burning, frequency, blood in urine, or discharge. FEMALE GENITOURINARY: Denies vaginal bleeding, heavy or abnormal periods, irregular periods. Denies vaginal discharge or odor. MUSCULOSKELETAL: Denies neck pain or stiffness. Denies joint pain or swelling. SKIN: Denies rash, lesions or sores. HEMATOLOGIC : Denies easy bruising or bleeding. LYMPHATIC: Denies swollen, enlarged glands. NEUROLOGICAL: Denies confusion or altered mental status. Denies passing out or loss of consciousness. Denies dizziness or lightheadedness. Denies headache. Denies weakness or paralysis or loss of use of either side. Denies problems with gait or speech. Denies sensory loss, numbness, or tingling. Denies seizures. PSYCHIATRIC: Denies anxiety or stress. Denies depression, suicidal ideation, or homicidal ideation. ALL OTHER SYSTEMS REVIEWED AND NEGATIVE. Dictation was performed using [employer] voice recognition software Physical Exam - Vital signs Vitals: Temp Pulse Resp BP Pulse Ox 97.5 F 62 16 146/93 H 100 01/15/18 00:41 01/15/18 00:41 01/15/18 00:41 01/15/18 00:41 01/15/18 00:41 - Notes Notes: PHYSICAL EXAMINATION: GENERAL: Well-appearing, well-nourished and in no acute distress. HEAD: Atraumatic, normocephalic. EYES: Pupils equal round and reactive to light, extraocular movements intact, conjunctiva are normal. ENT: Nares patent, oropharynx clear without exudates. Moist mucous membranes. NECK: Normal range of motion, supple without lymphadenopathy LUNGS: Breath sounds clear to auscultation bilaterally and equal. No wheezes rales or rhonchi. HEART: Regular rate and rhythm without murmurs. Mild pain appreciated through the upper chest region on palpation extending from the midepigastric region. No crepitance or bony deformity or erythema. ABDOMEN: Soft, nontender, nondistended abdomen. No guarding, no rebound. No masses appreciated. Female : deferred Musculoskeletal: Normal range of motion, no pitting or edema. No cyanosis. Patient reports pain to the mid back region but I cannot reproduce this. There is no erythema or other abnormality. NEUROLOGICAL: Cranial nerves grossly intact. Normal speech, normal gait. Normal sensory, motor exams PSYCH: Normal mood, normal affect. SKIN: Warm, Dry, normal turgor, no rashes or lesions noted. Course - Re-evaluation Re-evalutation: 01/15/18 02:29 Patient was given GI cocktail and Pepcid by mouth. 01/15/18 03:59 Vital signs stable. Lab studies negative. There is no evidence for pancreatitis, hepatitis, acute WI, CHF, pneumonia, pneumothorax, hypertensive urgency. Patient reports a minimal response with the GI cocktail and Pepcid. Patient was reassured. Patient's reported that she would take the doxycycline and commonly would not take any water whatsoever and would swallow dry. Given that the patient denies any vaginal discharge and states she is feeling fine, we will discontinue the doxycycline and place her on a low-dose acid esha. Patient also questions anxiety related to having 2-month-old twins at home and a [id number] child, with a total of 8 of her children at home that she is taking care of primarily. 01/15/18 04:01 - Vital Signs Vital signs: Temp Pulse Resp BP Pulse Ox 97.5 F 62 16 146/93 H 100 01/15/18 00:41 01/15/18 00:41 01/15/18 00:41 01/15/18 00:41 01/15/18 00:41 - Laboratory Result Diagrams: 01/15/18 02:10 01/15/18 02:10 Laboratory results interpreted by me: 01/15/18 01/15/18 02:10 02:10 RDW 14.4 H Chloride 108 H Est GFR (Non-Af Amer) 54 L - EKG Interpretation by Mn EKG shows normal: Sinus rhythm Additional EKG results interpreted by me: 01/15/18 02:29 EKG as interpreted by mt showed sinus bradycardia heart rate of 55. There is no gross evidence for acute WI or ischemia noted. There is no change from previous EKG reviewed from 11/24/17. Discharge - Discharge Clinical Impression: Esophagitis Chest pain Qualifiers: Chest pain type: unspecified Qualified Code(s): R07.9 - Chest pain, unspecified Condition: Stable Disposition: HOME, SELF-CARE Instructions: Chest Pain of Unclear Cause ([facility]), Esophagitis ([facility]) Additional Instructions: Stop doxycycline. Return to the emergency department case of difficulty breathing, fever, severe pain. Prescriptions: RX: Ranitidine HCl 150 mg PO BID #60 tablet Referrals: DARBY CUELLAR MD [EMERITUS] - Follow up as needed
[2018-01-15 02:22] LABS: ABSOLUTE EOSINOPHILS # (AUTO) 0.1 10^3/uL (0.0-0.6); ABSOLUTE LYMPHOCYTES (AUTO) 2.1 10^3/uL (0.5-4.7); ABSOLUTE MONOCYTES (AUTO) 0.4 10^3/uL (0.1-1.4); ABSOLUTE NEUT (AUTO) 4.1 10^3/uL (1.7-8.2); BASOPHILS % (AUTO) 0.6 % (0-2); EOSINOPHILS % (AUTO) 1.2 % (0-6); HEMATOCRIT 37.9 % (36.0-47.0); HEMOGLOBIN 12.3 g/dL (12.0-15.5); LYMPHOCYTES % (AUTO) 31.3 % (13-45); MEAN CORPUSCULAR HEMOGLOBIN 27.2 pg (27.0-33.4); MEAN CORPUSCULAR HGB CONC 32.4 g/dL (32.0-36.0); MEAN CORPUSCULAR VOLUME 84 fl (80-97); MONOCYTES % (AUTO) 5.8 % (3-13); PLATELET COUNT 232 10^3/uL (150-450); RED BLOOD COUNT 4.51 10^6/uL (3.72-5.28); RED CELL DISTRIBUTION WIDTH 14.4 % (11.5-14.0); SEGMENTED NEUTROPHILS % (AUTO) 61.1 % (42-78); TOTAL CELLS COUNTED % (AUTO) 100 %; WHITE BLOOD COUNT 6.8 10^3/uL (4.0-10.5)
[2018-01-15 02:36] LABS: ALANINE AMINOTRANSFERASE 42 U/L (9-52); ALBUMIN 4.1 g/dL (3.5-5.0); ALKALINE PHOSPHATASE 76 U/L (38-126); ANION GAP 8 (5-19); ASPARTATE AMINO TRANSFERASE 29 U/L (14-36); BILIRUBIN,DIRECT 0.4 mg/dL (0.0-0.4); BILIRUBIN,TOTAL 0.4 mg/dL (0.2-1.3); BLOOD UREA NITROGEN 20 mg/dL (7-20); CARBON DIOXIDE 25 mmol/L (22-30); CHLORIDE 108 mmol/L (98-107); GLUCOSE 101 mg/dL (75-110); LIPASE 98.6 U/L (23-300); POTASSIUM 4.2 mmol/L (3.6-5.0); SODIUM 141.4 mmol/L (137-145); TOTAL PROTEIN 6.7 g/dL (6.3-8.2)
[2018-01-15] MEDS ORDERED: ALPRAZOLAM 0.5 MG TABLET PO ONE (03:08)
[2018-01-15 03:24] LABS: BILIRUBIN,URINE NEGATIVE (NEGATIVE); COLOR,URINE YELLOW; GLUCOSE, URINE NEGATIVE (NEGATIVE); KETONES,URINE NEGATIVE (NEGATIVE); LEUKOCYTE ESTERASE,URINE NEGATIVE (NEGATIVE); NITRITE,URINE NEGATIVE (NEGATIVE); PROTEIN,URINE NEGATIVE (NEGATIVE); URINE SPECIFIC GRAVITY 1.016; UROBILINOGEN,URINE NEGATIVE mg/dL (<2.0)
[2018-01-15 03:25] LABS: APPEARANCE,URINE SLIGHTLY HAZY
--- NOTE | 2018-01-15 03:44 | RADIOLOGY REPORT (SQ) ---
EXAM DESCRIPTION: CHEST PA/LAT CLINICAL HISTORY: 42 years, Female, chest pain COMPARISON: None. NUMBER OF VIEWS: 2 LIMITATIONS: None. FINDINGS: Normal lung volume, clear parenchyma, normal cardiac silhouette, and intact bony thorax. Left upper abdominal clips. IMPRESSION: No acute cardiopulmonary findings.
[2018-01-15 04:16] VITALS: BP 122/80
--- NOTE | 2018-01-15 07:26 | EKG REPORT ---
SEVERITY:- NORMAL ECG - SINUS RHYTHM : Confirmed by: Baldomero Mathur MD 15-Jan-2018 07:25:40
== END 2018-01-15 04:18 | disposition home or self-care (01) ==
LOC: ER 00:23
DX: K20.9 Esophagitis, unspecified (principal); R07.9 Chest pain, unspecified; R11.10 Vomiting, unspecified; R00.1 Bradycardia, unspecified; I10 Essential (primary) hypertension; Z98.890 Other specified postprocedural states; Z98.84 Bariatric surgery status
CPT/HCPCS: 93005; 99285; 36415; 83690; 85025; 81025; 80053; 81001; 84484; 71046; 93010; J3490 ×2

== ENCOUNTER 2018-01-26 14:44 | Emergency (ER) | payer MEDICAID ==
--- NOTE | 2018-01-26 15:16 | EKG REPORT ---
SEVERITY:- OTHERWISE NORMAL ECG - SINUS BRADYCARDIA : Confirmed by: Sherice Anthony 26-Jan-2018 15:15:49
[2018-01-26] MEDS ORDERED: ASPIRIN 81 MG TABLET, CHEWABLE PO ONE (15:52)
--- NOTE | 2018-01-26 15:53 | ER Document Report ---
ED Medical Screen (RME) - General Mode of Arrival: Wheelchair Information source: Patient TRAVEL OUTSIDE OF THE [place] IN LAST 30 DAYS: No - HPI Patient complains to provider of: Hypertension Onset: Other - few weeks ago Associated Symptoms: Other - see notes above <AGUILA SERNA - Last Filed: 01/26/18 16:21> <ANABELLENIRAVDAVID - Last Filed: 01/26/18 18:03> - General Chief Complaint: Chest Pain Stated Complaint: CHEST PAIN,BACK PAIN,HEADACHE Time Seen by Provider: 01/26/18 15:42 Notes: 42 year old female with history of emergency delivery secondary to pre- eclampsia (November 2017) presents to the ED complaining of unstable blood pressure and feeling 'awful' and 'foggy' for the past few weeks. 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 Patient additionally complains of intermittent chest pain and headache. (AGUILA SERNA) - Related Data Allergies/Adverse Reactions: No Known Allergies Allergy (Verified 01/26/18 15:37) Past Medical History - General Information source: Patient - Social History Chew tobacco use (# tins/day): No Frequency of alcohol use: None Drug Abuse: None - Past Medical History Cardiac Medical History: Reports: Hx Hypertension Renal/ Medical History: Denies: Hx Peritoneal Dialysis Past Surgical History: Reports: Hx Section, Hx Gastric Bypass SurgeryComment Only: Hx Abdominal Surgery - hernia repair, gastric bypass - Immunizations Immunizations up to date: Yes Hx Diphtheria, Pertussis, Tetanus Vaccination: Yes History of Influenza Vaccine for 08/2017 - 01/2018 Season: Refused <AGUILA SERNA - Last Filed: 01/26/18 16:21> Review of Systems - Review of Systems Constitutional: No symptoms reported EENT: No symptoms reported Cardiovascular: See HPI, Chest pain Respiratory: No symptoms reported Gastrointestinal: No symptoms reported Genitourinary: No symptoms reported Female Genitourinary: No symptoms reported Musculoskeletal: No symptoms reported Skin: No symptoms reported Hematologic/Lymphatic: No symptoms reported Neurological/Psychological: See HPI, Headaches -: Yes All other systems reviewed and negative <AGUILA SERNA - Last Filed: 01/26/18 16:21> Physical Exam - General General appearance: Alert - HEENT Head: Normocephalic, Atraumatic Eyes: Normal Extraocular movements intact: Yes Pupils: PERRL - Respiratory Respiratory status: No respiratory distress Breath sounds: Normal - Cardiovascular Rhythm: Regular Heart sounds: Normal auscultation Pulses: Normal: Radial, Dorsalis pedis - Extremities General upper extremity: Normal inspection, Normal ROM General lower extremity: Normal inspection, Normal ROM <AGUILA SERNA - Last Filed: 01/26/18 16:21> - Vital signs Vitals: Temp Pulse Resp BP Pulse Ox 97.8 F 53 L 18 166/95 H 99 01/26/18 14:57 01/26/18 14:57 01/26/18 14:57 01/26/18 14:57 01/26/18 14:57 Course - Laboratory Result Diagrams: 01/26/18 16:14 01/26/18 16:14 <AGUILA SERNA - Last Filed: 01/26/18 16:21> - Laboratory Result Diagrams: 01/26/18 16:14 01/26/18 16:14 <DAVID DE SANTIAGO - Last Filed: 01/26/18 18:03> - Vital Signs Vital signs: Temp Pulse Resp BP Pulse Ox 97.8 F 53 L 18 166/95 H 99 01/26/18 14:57 01/26/18 14:57 01/26/18 14:57 01/26/18 14:57 01/26/18 14:57 - Laboratory Laboratory results interpreted by me: 01/26/18 16:14 RDW 14.2 H Doctor's Discharge <AGUILA SERNA - Last Filed: 01/26/18 16:21> <DAVID DE SANTIAGO - Last Filed: 01/26/18 18:03> - Discharge Clinical Impression: Chest wall pain Condition: Stable Disposition: HOME, SELF-CARE Additional Instructions: As we discussed, your heart enzymes and EKG look quite good today. The blood test for blood clots was normal. Your kidney function tests and other labs were very good as well. The chest x-ray was clear today. I would like you to continue current medicines (particularly the ranitidine which is the GI medicine). Follow-up with the primary care doctor as planned. Bring a copy of today's labs and x-ray report with you when you go. Return to the emergency room for worsening pain, shortness of breath or any concerns or getting worse. Scribe Documentation - Scribe Written by Scribe:: Rhoda Monge, 01/26/2018 [id number] acting as scribe for :: Ruddy <AGUILA SERNA - Last Filed: 01/26/18 16:21>
[2018-01-26 16:39] LABS: HEMATOCRIT 37.1 % (36.0-47.0); HEMOGLOBIN 12.2 g/dL (12.0-15.5); MEAN CORPUSCULAR HEMOGLOBIN 27.4 pg (27.0-33.4); MEAN CORPUSCULAR HGB CONC 32.8 g/dL (32.0-36.0); MEAN CORPUSCULAR VOLUME 84 fl (80-97); PLATELET COUNT 208 10^3/uL (150-450); RED BLOOD COUNT 4.44 10^6/uL (3.72-5.28); RED CELL DISTRIBUTION WIDTH 14.2 % (11.5-14.0); WHITE BLOOD COUNT 4.5 10^3/uL (4.0-10.5)
--- NOTE | 2018-01-26 16:45 | RADIOLOGY REPORT (SQ) ---
EXAM DESCRIPTION: CHEST SINGLE VIEW COMPLETED DATE/TIME: 01/26/2018 4:32 pm REASON FOR STUDY: chest pain, SOB COMPARISON: 01/15/2018 EXAM PARAMETERS: NUMBER OF VIEWS: One view. TECHNIQUE: Single frontal radiographic view of the chest acquired. RADIATION DOSE: NA LIMITATIONS: None. FINDINGS: LUNGS AND PLEURA: No opacities, masses or pneumothorax. No pleural effusion. MEDIASTINUM AND HILAR STRUCTURES: No masses. Contour normal. HEART AND VASCULAR STRUCTURES: Heart normal in size. Normal vasculature. BONES: No acute findings. HARDWARE: None in the chest. OTHER: No other significant finding. IMPRESSION: NO ACUTE RADIOGRAPHIC FINDING IN THE CHEST. TECHNICAL DOCUMENTATION: JOB ID: [id number] [email or web address] All Rights Reserved Reading location - IP/workstation name: [email or web address]
[2018-01-26 16:48] LABS: APPEARANCE,URINE CLEAR; BILIRUBIN,URINE NEGATIVE (NEGATIVE); COLOR,URINE STRAW; GLUCOSE, URINE NEGATIVE (NEGATIVE); KETONES,URINE NEGATIVE (NEGATIVE); LEUKOCYTE ESTERASE,URINE NEGATIVE (NEGATIVE); NITRITE,URINE NEGATIVE (NEGATIVE); PROTEIN,URINE NEGATIVE (NEGATIVE); URINE SPECIFIC GRAVITY 1.003; UROBILINOGEN,URINE NEGATIVE mg/dL (<2.0)
[2018-01-26 16:57] LABS: ALANINE AMINOTRANSFERASE 34 U/L (9-52); ALBUMIN 4.1 g/dL (3.5-5.0); ALKALINE PHOSPHATASE 62 U/L (38-126); ANION GAP 10 (5-19); ASPARTATE AMINO TRANSFERASE 21 U/L (14-36); BILIRUBIN,DIRECT 0.1 mg/dL (0.0-0.4); BILIRUBIN,TOTAL 0.5 mg/dL (0.2-1.3); BLOOD UREA NITROGEN 10 mg/dL (7-20); CALCIUM 9.9 mg/dL (8.4-10.2); CARBON DIOXIDE 28 mmol/L (22-30); CHLORIDE 104 mmol/L (98-107); CREATINE KINASE 52 U/L (30-135); GLUCOSE 98 mg/dL (75-110); LDH 376 U/L (313-618); POTASSIUM 4.5 mmol/L (3.6-5.0); SODIUM 141.6 mmol/L (137-145); TOTAL PROTEIN 6.4 g/dL (6.3-8.2); URIC ACID 5.9 mg/dL (2.5-7.0)
[2018-01-26 17:07] LABS: CREATINE KINASE MB 0.37 ng/mL (<4.55); TROPONIN I < 0.012 ng/mL
--- NOTE | 2018-01-26 17:09 | ER Document Report ---
ED General - General Chief Complaint: Chest Pain Stated Complaint: CHEST PAIN,BACK PAIN,HEADACHE Time Seen by Provider: 01/26/18 15:42 Mode of Arrival: Wheelchair Information source: Patient Notes: This is a 42-year-old female that presents to the emergency room with nonradiating retrosternal pain. Patient states that she has had the pain for 2 weeks constant. She describes it as a burning sensation. Patient does state that she was on doxycycline before this. She was placed on Zantac and is taken it for a week but still has symptoms. She has been evaluated by liability claims representative ( Dr. Anthony) a few days ago. She denies any exertional chest pain or shortness of breath. She denies any calf swelling or pain. She has no prior history of blood clots in the lower extremities or in the lungs, she did have a 2 months ago, she denies any cough or blood in sputum, she is not on any estrogen or control at this time. The patient's current medicines include: Chlorthalidone 12.5 mg daily Amlodipine 10 mg daily Betazole 200 mg twice daily Ranitidine 150 mg daily No known drug allergies TRAVEL OUTSIDE OF THE [place] IN LAST 30 DAYS: No - HPI Onset: Other - Constant for the past 2 weeks Onset/Duration: Gradual Quality of pain: Burning Severity: Moderate Pain Level: 2 Associated symptoms: denies: Nonproductive cough, Productive cough, Fever, Shortness of breath Exacerbated by: Denies. denies: Movement Relieved by: Denies Similar symptoms previously: Yes Recently seen / treated by doctor: Yes - Related Data Allergies/Adverse Reactions: No Known Allergies Allergy (Verified 01/26/18 15:37) Past Medical History - General Information source: Patient - Social History Smoking Status: Never Smoker Cigarette use (# per day): No Chew tobacco use (# tins/day): No Frequency of alcohol use: None Drug Abuse: None Lives with: Family Family History: Reviewed & Not Pertinent Patient has suicidal ideation: No Patient has homicidal ideation: No - Past Medical History Cardiac Medical History: Reports: Hx Hypertension Renal/ Medical History: Denies: Hx Peritoneal Dialysis Past Surgical History: Reports: Hx Section, Hx Gastric Bypass SurgeryComment Only: Hx Abdominal Surgery - hernia repair, gastric bypass - Immunizations Immunizations up to date: Yes Hx Diphtheria, Pertussis, Tetanus Vaccination: Yes Review of Systems - Review of Systems Constitutional: denies: Chills, Fever EENT: No symptoms reported Cardiovascular: No symptoms reported Respiratory: No symptoms reported Gastrointestinal: See HPI Genitourinary: No symptoms reported Female Genitourinary: No symptoms reported Musculoskeletal: No symptoms reported Skin: No symptoms reported Hematologic/Lymphatic: No symptoms reported Neurological/Psychological: No symptoms reported Physical Exam - Vital signs Vitals: Temp Pulse Resp BP Pulse Ox 97.8 F 53 L 18 166/95 H 99 01/26/18 14:57 01/26/18 14:57 01/26/18 14:57 01/26/18 14:57 01/26/18 14:57 Notes: Physical exam: GENERAL: 42-year-old female, alert and oriented 3, no acute distress HEAD: Atraumatic, normocephalic. EYES: Pupils equal round and reactive to light, extraocular movements intact, sclera anicteric, conjunctiva are normal. ENT: TMs normal, nares patent, oropharynx clear without exudates. Moist mucous membranes. NECK: Normal range of motion, supple without obvious mass or JVD. LUNGS: Breath sounds clear to auscultation bilaterally and equal. No wheezes rales or rhonchi. HEART: Regular rate and rhythm without murmurs, rubs or gallops. ABDOMEN: Soft, normoactive bowel sounds. No tenderness to palpation. No guarding, no rebound. No masses appreciated. EXTREMITIES: Normal range of motion, no pitting or edema. No clubbing or cyanosis. NEUROLOGICAL: Cranial nerves II through XII grossly intact. Normal speech, moving all extremities. PSYCH: Normal mood, normal affect. SKIN: Warm, Dry, normal turgor, no rashes or lesions noted. Course - Re-evaluation Re-evalutation: 01/26/18 17:55 Note: The patient's chest pain has been constant retrosternal nonradiating burning for the past 2 weeks after a course of doxycycline. Symptoms are not suggestive of an acute cardiac event. Her EKG is sinus rhythm and looks quite good. A set of cardiac enzymes were sent from triage and they are normal. She is PERC negative and she has a d-dimer which is negative: This makes pulmonary embolism highly unlikely. She has no tachypnea or shortness of breath and her oxygen saturation is 99% on room air. I have advised her to continue with her current medicines and she does have an appointment with a primary care doctor. - Vital Signs Vital signs: Temp Pulse Resp BP Pulse Ox 97.8 F 53 L 18 166/95 H 99 01/26/18 14:57 01/26/18 14:57 01/26/18 14:57 01/26/18 14:57 01/26/18 14:57 - Laboratory Result Diagrams: 01/26/18 16:14 01/26/18 16:14 Laboratory results interpreted by me: 01/26/18 16:14 RDW 14.2 H - Diagnostic Test Radiology reviewed: Image reviewed, Reports reviewed - Chest x-ray shows no infiltrates or effusions - EKG Interpretation by Me Rate: Bradycardia Rhythm: NSR - EKG shows sinus bradycardia with a ventricular rate of 46, no acute ST-T wave changes Discharge - Discharge Clinical Impression: Chest wall pain Condition: Stable Disposition: HOME, SELF-CARE Additional Instructions: As we discussed, your heart enzymes and EKG look quite good today. The blood test for blood clots was normal. Your kidney function tests and other labs were very good as well. The chest x-ray was clear today. I would like you to continue current medicines (particularly the ranitidine which is the GI medicine). Follow-up with the primary care doctor as planned. Bring a copy of today's labs and x-ray report with you when you go. Return to the emergency room for worsening pain, shortness of breath or any concerns or getting worse.
[2018-01-26 18:16] VITALS: BP 173/90
== END 2018-01-26 18:15 | disposition home or self-care (01) ==
LOC: ER 14:44
DX: R07.89 Other chest pain (principal); R00.1 Bradycardia, unspecified; I10 Essential (primary) hypertension; Z98.84 Bariatric surgery status; Z79.899 Other long term (current) drug therapy
CPT/HCPCS: 36415; 71045; 80053; 81001; 82550; 82553; 83615; 84484; 84550; 85027; 85379; 93005; 93010; 99285